=== PATIENT | male | born 1935 | race Caucasian/White ===

== ENCOUNTER 2018-08-11 06:39 | Day surgery (SDC) | payer MEDICARE ==
[~2018-08-11] VITALS: Ht 172.7 cm; Wt 81.2 kg
[~2018-08-11 06:39] MED LIST: ACET650T15 PO; ATOR1TAB21 PO; COUM2.5T17 PO; LISI20TA3 PO; MULT1TAB8 PO; NAPR220C PO; NS 1,000 ML IV ONE; PERC5TAB12 PO; TYLE325T5 PO; VITA10006 PO; VITA100067 PO; VITA400D PO; VITA500C24 PO; VITAD1000T PO
[2018-08-11] MEDS ORDERED: PROPOFOL 200 MG/20 ML VIAL As Ordered ONE ×2 (07:04→08:06)
--- NOTE | 2018-08-11 08:29 | ROOR ---
Patient Name: Zia Mireles Procedure Date: 08/11/2018 7:29 AM Date of : 1935 Age: 83 Room: [facility] Gender: Male Note Status: Finalized Procedure: Colonoscopy Indications: High risk colon cancer surveillance: Personal history of colonic polyps, Family history of colon cancer in a first-degree relative, Last colonoscopy: October 2014 Providers: Best Kern MD Referring MD: Amanda Valdes DO Requesting Provider: Medicines: Monitored Anesthesia Care Complications: No immediate complications. Procedure: Pre-Anesthesia Assessment: - Prior to the procedure, a History and Physical was performed, and patient medications and allergies were reviewed. The patient is competent. The risks and benefits of the procedure and the sedation options and risks were discussed with the patient. All questions were answered and informed consent was obtained. Patient identification and proposed procedure were verified by the physician, the nurse and the anesthesiologist. Mental Status Examination: alert and oriented. CV Examination: regular rate and rhythm. Prophylactic Antibiotics: The patient does not require prophylactic antibiotics. Prior Anticoagulants: The patient has taken no previous anticoagulant or antiplatelet agents. ASA Grade Assessment: II - A patient with mild systemic disease. After reviewing the risks and benefits, the patient was deemed in satisfactory condition to undergo the procedure. The anesthesia plan was to use monitored anesthesia care (MAC). Immediately prior to administration of medications, the patient was re-assessed for adequacy to receive sedatives. The heart rate, respiratory rate, oxygen saturations, blood pressure, adequacy of pulmonary ventilation, and response to care were monitored throughout the procedure. The physical status of the patient was re-assessed after the procedure. The Colonoscope [id number] #[id number] was introduced through the anus and advanced to the cecum, identified by appendiceal orifice and ileocecal valve. The colonoscopy was performed without difficulty. The patient tolerated the procedure well. The quality of the bowel preparation was excellent. Findings: The perianal and digital rectal examinations were normal. A 3 mm polyp was found in the proximal ascending colon. The polyp was sessile. The polyp was removed with a jumbo cold forceps. Resection and retrieval were complete. Estimated blood loss was minimal. A 5 mm polyp was found in the transverse colon. The polyp was semi-pedunculated. The polyp was removed with a cold snare. Resection and retrieval were complete. Estimated blood loss was minimal. A 3 mm polyp was found in the sigmoid colon. The polyp was sessile. The polyp was removed with a jumbo cold forceps. Resection and retrieval were complete. Estimated blood loss was minimal. Many medium-mouthed diverticula were found in the entire colon. Impression: - One 3 mm polyp in the proximal ascending colon, removed with a jumbo cold forceps. Resected and retrieved. - One 5 mm polyp in the transverse colon, removed with a cold snare. Resected and retrieved. - One 3 mm polyp in the sigmoid colon, removed with a jumbo cold forceps. Resected and retrieved. - Diverticulosis in the entire examined colon. Recommendation: - Discharge patient to home. - Resume previous diet. - Continue present medications. - Await pathology results. - Return to nurse practitioner as previously scheduled. Best Kern MD Best Kern MD 08/11/2018 8:28:37 AM Electronically signed by Best Kern MD Number of Addenda: 0 Note Initiated On: 08/11/2018 7:29 AM Estimated Blood Loss: Estimated blood loss was minimal.
[2018-08-11 08:32] VITALS: BP 134/84
== END 2018-08-11 08:41 | disposition home or self-care (01) ==
LOC: M OPP 06:39
PROVIDERS: ATTEND Surgery
DX: Z12.11 Encounter for screening for malignant neoplasm of colon (principal); Z86.010 Personal history of colon polyps; Z80.0 Family history of malignant neoplasm of digestive organs; D12.2 Benign neoplasm of ascending colon; D12.3 Benign neoplasm of transverse colon; D12.5 Benign neoplasm of sigmoid colon; K57.30 Diverticulosis of large intestine without perforation or abscess without bleeding

== ENCOUNTER → 2019-12-15 | Outpatient (CLI) | payer MEDICARE ==
[~2019-12-15] MED LIST changes: +CHOL100029 PO; +GASTROGRAFIN SOLUTION 30ML (Q9963) As Ordered ONE; +ISOVUE-370 76% 100ML VIAL As Ordered ONE; +LISI20TA20 PO; -LISI20TA3 PO; -NS 1,000 ML IV ONE; -VITAD1000T PO
[2019-12-15 16:50] LABS: BLOOD UREA NITROGEN 23 MG/DL (7-18); CREATININE FOR GFR 1.03 MG/DL (0.70-1.30); GLOMERULAR FILTRATION RATE > 60.0 (>35)
--- NOTE | 2019-12-15 18:41 | REP ---
INDICATION: ABD BLOATING/PAIN, LAB 1ST THEN FILE RM FOR CT. COMPARISON: None TECHNIQUE: 100 cc Isovue 370. FINDINGS: Basilar fibrotic and or subsegmental atelectatic changes are seen in the lung bases. There is a small left pleural effusion. There is no evidence of a pericardial effusion. Two focal low densities are seen in the liver. These are likely cysts. The spleen and pancreas are within normal limits. The adrenal glands are within normal limits. There are multiple bilateral renal cysts of various sizes. The largest on the right measures 8.9 cm and the largest on the left measures 5.6 cm. The abdominal aorta and para-aortic regions are within normal limits. There is moderate ascites. There is nodular enhancement of the omentum and mesentery. There is omental caking in the lesser sac particularly the gastrohepatic ligament. There is no evidence of intestinal obstruction. Bone window technique throughout the exam shows spinal degenerative changes with left hip and bilateral sacroiliac joint degenerative changes. There is a right hip prosthesis. IMPRESSION: 1. 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 2. Bilateral renal cysts as described above. 3. Other findings as described above. <Electronically signed by Ryan Todd > 12/15/19 [id number]
== END ==
LOC: M LAB 14:29 → M RAD 14:29
PROVIDERS: ATTEND Family Medicine
DX: R10.9 Unspecified abdominal pain (principal)
CPT/HCPCS: 36415; 74177; 82565; 84520; Q9963; Q9967

== ENCOUNTER → 2019-12-17 | Outpatient (CLI) | payer MEDICARE ==
[~2019-12-17] MED LIST changes: -GASTROGRAFIN SOLUTION 30ML (Q9963) As Ordered ONE; -ISOVUE-370 76% 100ML VIAL As Ordered ONE
[2019-12-17 11:28] LABS: BASO # 0.1 10^3/uL (0.0-0.2); BASO % 0.5 % (0.0-1.0); EOS % 0.1 % (0.0-3.0); HEMATOCRIT 46.3 % (42.0-52.0); HEMOGLOBIN 15.3 g/dl (13.5-17.5); LYMPH # 0.7 10^3/uL (1.5-5.0); MEAN CORPUSCULAR HEMOGLOBIN 30.4 pg (27.0-33.0); MEAN CORPUSCULAR VOLUME 91.9 fl (80.0-96.0); MONO # 1.1 10^3/uL (0.0-0.8); MONO % 7.9 % (0.0-5.0); NEUTROPHILS # 11.6 10^3/uL (1.5-8.5); NEUTROPHILS % 85.7 % (36.0-66.0); PLATELET COUNT, AUTOMATED 450 10^3/uL (150-450); RED BLOOD COUNT 5.04 10^6/uL (4.30-6.10); WHITE BLOOD COUNT 13.5 10^3/uL (4.0-10.0)
[2019-12-17 11:53] LABS: ALBUMIN 2.6 GM/DL (3.2-5.2); ALT/SGPT 16 U/L (12-78); BILIRUBIN,TOTAL 0.6 MG/DL (0.2-1.0); BLOOD UREA NITROGEN 22 MG/DL (7-18); CALCIUM LEVEL 9.4 MG/DL (8.8-10.2); CARBON DIOXIDE LEVEL 33 MEQ/L (21-32); CHLORIDE LEVEL 98 MEQ/L (98-107); CREATININE FOR GFR 1.12 MG/DL (0.70-1.30); GLOMERULAR FILTRATION RATE > 60.0 (>35); GLUCOSE, FASTING 120 MG/DL (70-100); POTASSIUM SERUM 3.5 MEQ/L (3.5-5.1); SODIUM LEVEL 139 MEQ/L (136-145); TOTAL PROTEIN 6.5 GM/DL (6.4-8.2)
== END ==
LOC: M LAB 10:41
PROVIDERS: ATTEND Family Medicine
DX: R14.0 Abdominal distension (gaseous) (principal); R18.8 Other ascites; K76.89 Other specified diseases of liver; C79.9 Secondary malignant neoplasm of unspecified site; D12.6 Benign neoplasm of colon, unspecified

== ENCOUNTER → 2019-12-23 | Outpatient (CLI) | payer MEDICARE ==
[~2019-12-23] MED LIST changes: +ASPI1TAB8 PO; +OMEP40CA97 PO
== END ==
LOC: M LABSMTC 10:37
PROVIDERS: ATTEND Anesthesiology
DX: Z01.812 Encounter for preprocedural laboratory examination (principal); Z20.828 Contact with and (suspected) exposure to other viral communicable diseases

== ENCOUNTER → 2019-12-27 | Outpatient (CLI) | payer MEDICARE ==
[~2019-12-27] MED LIST changes: +ASCO500T PO; +D31000TA2 PO; +OMEP-221 PO; +SODIUM BICARBONATE 8.4% INJ 50MEQ 50 ML VIAL As Ordered ONE; +VITMTA PO
[2019-12-27 10:38] LABS: INR 1.43; PROTHROMBIN TIME 17.8 SECONDS (12.5-14.3)
[2019-12-27 11:24] LABS: APPEARANCE, BODY FLUID HAZY (CLEAR); ASCITES FL COLOR YELLOW (COLORLESS); SOURCE, BODY FLUID ASCITES
[2019-12-27 11:25] VITALS: BP 126/74
[2019-12-27 11:57] LABS: SOURCE, BODY FLUID ALBUMIN ASCITES; SOURCE, BODY FLUID GLUCOSE ASCITES; SOURCE, BODY FLUID TOT PROTEIN ASCITES; TOTAL PROTEIN, BODY FLUID 4.3 G/DL (NOT ESTABLISHED)
--- NOTE | 2019-12-27 18:30 | REP ---
INDICATION: OTHER ASCITES PT HAVING LABS FIRST COMPARISON: None. TECHNIQUE: The procedure was performed by Cheri Moser [facility], under the direct supervision of Dr. Christianson The risks and benefits of the procedure were explained to the patient and an informed consent was obtained both verbally and written. Directly prior to the start of the procedure a formal time-out was completed in the procedure room. The largest pocket of fluid was localized in the left flank using ultrasound guidance. The skin was prepped and draped in a sterile fashion. Eleven ML of buffered lidocaine was used as a local anesthetic. An 8-Burmese multi side-hole catheter was inserted using trocar technique. FINDINGS: 5300 mL of dark yellow ascites fluid was withdrawn, 500 mL was sent to the lab for further analysis, of the rest was discarded. The patient tolerated the procedure well and there were no immediate complications. After the appropriate amount of monitored convalescence, the patient was discharged from the department. IMPRESSION: Ultrasound-guided paracentesis with removal of 5300 mL of ascites. <Electronically signed by Cheri Moser > 12/27/19 [id number] <Electronically signed by Porter Christianson > 12/27/19 [id number]
== END ==
LOC: M IRPRO 09:44
PROVIDERS: ATTEND Surgery
DX: R18.8 Other ascites (principal); R85.69 Abnormal cytological findings in specimens from other digestive organs and abdominal cavity; Z79.01 Long term (current) use of anticoagulants

== ENCOUNTER 2019-12-28 12:48 | Day surgery (SDC) | payer MEDICARE ==
[~2019-12-28] VITALS: Ht 175.3 cm; Wt 83.9 kg
[~2019-12-28 12:48] MED LIST changes: -ASCO500T PO; -D31000TA2 PO; +NS 1,000 ML IV ONE; -OMEP-221 PO; -OMEP40CA97 PO; -SODIUM BICARBONATE 8.4% INJ 50MEQ 50 ML VIAL As Ordered ONE; -VITMTA PO
[2019-12-28] MEDS ORDERED: LIDOCAINE 2% 100MG/5ML SDV (FOR ANES.) As Ordered ONE (14:29)
[2019-12-28] MEDS ORDERED: propofoL 200 MG/20 ML VIAL As Ordered ONE (14:29)
[2019-12-28] MEDS ORDERED: OMEP40CA97 PO (16:04)
[2019-12-28] MEDS ORDERED: LEVALBUTEROL 1.25 MG/0.5 ML CONCENTRATE NEB INH ONE (16:30)
--- NOTE | 2019-12-28 17:21 | ROOR ---
Patient Name: Zia Mireles Procedure Date: 12/28/2019 3:27 PM Date of : 1935 Age: 84 Room: [facility] Gender: Male Note Status: Finalized Procedure: Upper GI endoscopy Indications: Abnormal CT of the GI tract, Patient has new ascites and CT shows nodular appearance of mesentery and omentum suggesting malignancy. Providers: Best Kern MD Referring MD: Amanda Valdes DO Requesting Provider: Medicines: Monitored Anesthesia Care Complications: No immediate complications. Procedure: Pre-Anesthesia Assessment: - Prior to the procedure, a History and Physical was performed, and patient medications and allergies were reviewed. The patient is competent. The risks and benefits of the procedure and the sedation options and risks were discussed with the patient. All questions were answered and informed consent was obtained. Patient identification and proposed procedure were verified by the physician, the nurse and the 911 emergency services dispatcher in the procedure room. Mental Status Examination: alert and oriented. CV Examination: regular rate and rhythm. Prophylactic Antibiotics: The patient does not require prophylactic antibiotics. Prior Anticoagulants: The patient has taken no previous anticoagulant or antiplatelet agents. ASA Grade Assessment: III - A patient with severe systemic disease. After reviewing the risks and benefits, the patient was deemed in satisfactory condition to undergo the procedure. The anesthesia plan was to use monitored anesthesia care (MAC). Immediately prior to administration of medications, the patient was re-assessed for adequacy to receive sedatives. The heart rate, respiratory rate, oxygen saturations, blood pressure, adequacy of pulmonary ventilation, and response to care were monitored throughout the procedure. The physical status of the patient was re-assessed after the procedure. The Endoscope was introduced through the mouth, and advanced to the second part of duodenum. The upper GI endoscopy was accomplished without difficulty. The patient tolerated the procedure well. Findings: One benign-appearing, intrinsic mild stenosis was found at the gastroesophageal junction. The stenosis was traversed. Multiple dispersed, small non-bleeding erosions were found in the gastric antrum and in the prepyloric region of the stomach. There were no stigmata of recent bleeding. One non-obstructing non-bleeding cratered duodenal ulcer with pigmented material was found in the first portion of the duodenum. The lesion was 20 mm in largest dimension. There is no evidence of perforation. Biopsies were taken with a cold forceps for histology. The second portion of the duodenum was normal. Impression: - Benign-appearing esophageal stenosis. - Non-bleeding erosive gastropathy. - Non-obstructing non-bleeding duodenal ulcer with pigmented material. There is no evidence of perforation. Biopsied. - Normal second portion of the duodenum. Recommendation: - Discharge patient to home. - Resume previous diet. - Continue present medications. - Use Prilosec (omeprazole) 40 mg PO BID. - Await pathology results. - Return to my office in 1 week. Procedure Code(s): --- Professional --- 86800, Esophagogastroduodenoscopy, flexible, transoral; with biopsy, single or multiple Diagnosis Code(s): --- Professional --- K22.2, Esophageal obstruction K31.89, Other diseases of stomach and duodenum K26.9, Duodenal ulcer, unspecified as acute or chronic, without hemorrhage or perforation R93.3, Abnormal findings on diagnostic imaging of other parts of digestive tract CPT copyright 2019 [employer]. All rights reserved. The codes documented in this report are preliminary and upon public health outreach worker review may be revised to meet current compliance requirements. Best Kern MD Best Kern MD 12/28/2019 5:20:52 PM Electronically signed by Best Kern MD Number of Addenda: 0 Note Initiated On: 12/28/2019 3:27 PM Estimated Blood Loss: Estimated blood loss was minimal.
[2019-12-28 17:45] VITALS: BP 100/61
== END 2019-12-28 20:05 | disposition home or self-care (01) ==
LOC: M OPP 12:48
PROVIDERS: ATTEND Surgery
DX: K22.2 Esophageal obstruction (principal); K31.89 Other diseases of stomach and duodenum; K25.9 Gastric ulcer, unspecified as acute or chronic, without hemorrhage or perforation; I10 Essential (primary) hypertension; R18.8 Other ascites; R93.3 Abnormal findings on diagnostic imaging of other parts of digestive tract; Z87.891 Personal history of nicotine dependence

== ENCOUNTER 2019-12-30 14:15 | Inpatient (IN) | payer MEDICARE ==
[~2019-12-30] VITALS: Ht 175.3 cm; Wt 88.2 kg
[~2019-12-30 14:15] MED LIST changes: -NS 1,000 ML IV ONE; +OMEP40CA97 PO
[2019-12-30 15:32] LABS: BASO % 0.2 % (0.0-1.0); EOS % 0.2 % (0.0-3.0); HEMATOCRIT 37.6 % (42.0-52.0); HEMOGLOBIN 12.4 g/dl (13.5-17.5); LYMPH # 0.6 10^3/uL (1.5-5.0); LYMPH % 5.7 % (24.0-44.0); MEAN CORPUSCULAR HEMOGLOBIN 29.5 pg (27.0-33.0); MEAN CORPUSCULAR VOLUME 89.5 fl (80.0-96.0); MONO # 0.8 10^3/uL (0.0-0.8); MONO % 8.3 % (0.0-5.0); NEUTROPHILS # 8.6 10^3/uL (1.5-8.5); NEUTROPHILS % 84.9 % (36.0-66.0); PLATELET COUNT, AUTOMATED 540 10^3/uL (150-450); WHITE BLOOD COUNT 10.1 10^3/uL (4.0-10.0)
[2019-12-30 15:43] LABS: INR 1.42; PROTHROMBIN TIME 17.7 SECONDS (12.5-14.3)
[2019-12-30 15:44] LABS: PARTIAL THROMBOPLASTIN TIME 33.5 SECONDS (24.2-38.5)
[2019-12-30 15:55] LABS: ALBUMIN 1.8 GM/DL (3.2-5.2); ALT/SGPT 15 U/L (12-78); BILIRUBIN,DIRECT 0.1 MG/DL (0.0-0.2); BILIRUBIN,TOTAL 0.3 MG/DL (0.2-1.0); BLOOD UREA NITROGEN 34 MG/DL (7-18); CARBON DIOXIDE LEVEL 28 MEQ/L (21-32); CHLORIDE LEVEL 104 MEQ/L (98-107); CREATININE FOR GFR 1.21 MG/DL (0.70-1.30); GLOMERULAR FILTRATION RATE > 60.0 (>35); GLUCOSE, FASTING 104 MG/DL (70-100); LIPASE 121 U/L (73-393); POTASSIUM SERUM 4.1 MEQ/L (3.5-5.1); SODIUM LEVEL 139 MEQ/L (136-145); TOTAL PROTEIN 5.6 GM/DL (6.4-8.2)
--- NOTE | 2019-12-30 16:09 | REP ---
INDICATION: abd pain. COMPARISON: Two view chest of 04/02/2014 the latest prior FINDINGS: Multiple gas-filled dilated small bowel loops are seen in the abdomen. The upright view shows air-fluid levels within multiple small bowel loops. There is some gas in the rectosigmoid region. The accompanying frontal view the chest shows a new left pleural effusion and patchy left basilar opacity. There is no evidence of free subdiaphragmatic air. IMPRESSION: 1. Partial small bowel obstruction versus ileus correlate clinically. 2. Left pleural effusion and left basilar opacity. Concomitant pneumonia/atelectasis. <Electronically signed by Ryan Todd > 12/30/19 [id number]
[2019-12-30] MEDS ORDERED: ISOVUE-370 76% 100ML VIAL As Ordered ONE (16:18)
--- NOTE | 2019-12-30 17:02 | REP ---
INDICATION: gen abd pain. COMPARISON: 12/15/2019 TECHNIQUE: 100 cc Isovue 370. No oral bowel preparatory contrast was administered. FINDINGS: Please see CT angio chest report made same day in regards to findings involving the lung bases. There is a moderate amount of ascites. There is abnormal soft tissue density and enhancement involving the omentum consistent with omental caking. There are tiny nodular density seen along the peritoneum likely secondary to peritoneal seeding. The liver and gallbladder are within normal limits. Incidental note is made of a small hepatic cysts and a tiny hepatic calcification. The spleen is within normal limits. There are multiple bilateral renal cysts. The pancreas is unchanged. Small lymph nodes are seen in the para-aortic region. There is no evidence of free intraperitoneal air. Multiple gas and fluid-filled bowel loops are seen in the abdomen. There is gas and stool in the rectosigmoid region. There is no significant change in appearance of the osseous structures. IMPRESSION: 1. There is ascites which has decreased slightly in size compared to the prior exam. 2. 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 3. There is evidence of an ileus versus partial small bowel obstruction. This represents a change from the prior exam. 4. Bilateral renal cysts are again noted. 5. Other findings as described above. <Electronically signed by Ryan Todd > 12/30/19 [id number]
[2019-12-30] MEDS ORDERED: MORPHINE 4 MG/ML 1ML VIAL/SYRINGE (J2270) IV ONE (18:15)
--- NOTE | 2019-12-30 18:23 | REP ---
INDICATION: r/o pneumonia. COMPARISON: None. TECHNIQUE: CT angiogram chest performed following the intravenous administration of 100 cc of Isovue 370. Sagittal and coronal reconstruction images are performed. FINDINGS: Lungs: There is patchy atelectasis or infiltrate inferiorly in the left lung. Mediastinum: There is an enlarged left carinal lymph node measuring 1.2 cm in short axis dimension. There are few adjacent subcentimeter mediastinal lymph nodes. There are several subcentimeter lymph nodes in the cardiophrenic angles. There is a enlarged lymph node the right lateral cardiophrenic angle along the diaphragm which measures 2.0 x 1.1 cm. Few subcentimeter lymph nodes are seen anterior to the distal esophagus. Pulmonary arteries: In the posterior basilar pulmonary artery segment supplying the right lower lobe there are partially occlusive pulmonary emboli which are likely not acute. Joi: No adenopathy. Axilla: No adenopathy. Pleura: There is a large left pleural effusion. Heart: Not enlarged. Thoracic aorta: No aneurysm or dissection. Visualized osseous structures: There are degenerative changes of the spine without compression deformity. IMPRESSION: There is patchy atelectasis or infiltrate inferiorly in the left lung. There is a mildly enlarged left carinal lymph node. There are multiple subcentimeter lymph nodes in the cardiophrenic angles and anterior to the distal esophagus. There is an enlarged right lateral cardiophrenic lymph node. Partially occlusive pulmonary emboli in the secondary branch of the right pulmonary artery supplying the posterior basilar segment of the right lower lobe. I suspect these are most likely chronic. Large left pleural effusion. <Electronically signed by Porter Christianson > 12/30/19 2018
[2019-12-30] MEDS ORDERED: cefTRIAXone SOD 1 GM in D5W MINI-BAG PLUS 50 ML IV ONE (18:45)
[2019-12-30] MEDS ORDERED: LISI20TA20 PO (18:47)
[2019-12-30] MEDS ORDERED: D31000TA2 PO (18:47)
[2019-12-30] MEDS ORDERED: VITMTA PO (18:47)
[2019-12-30] MEDS ORDERED: ASCO500T PO (18:47)
[2019-12-30] MEDS ORDERED: ASPI1TAB8 PO (18:47)
[2019-12-30] MEDS ORDERED: OMEP-221 PO (18:47)
[2019-12-30] MEDS ORDERED: ACET650T15 PO (18:47)
[2019-12-30 19:05] LABS: CK-MB VALUE MASS 1.8 NG/ML (<3.6); CPK CREATINE PHOSPHOKINASE 42 U/L (39-308); MB/CK RELATIVE INDEX 4.29 (< OR =4); TROPONIN I 0.03 NG/ML (< 0.10)
[2019-12-30] MEDS ORDERED: ACETAMINOPHEN 650MG ER TAB (TYLENOL ARTHRITIS) PO PRN (20:45)
--- NOTE | 2019-12-30 20:52 | HPEPDOC ---
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 Patient shares that he was experiencing abdominal pain and distention earlier this month. A CT of the abdomen was performed by his primary care provider which indicated ascites and the stigmata of metastatic disease. He was subsequently referred to general surgery for further evaluation of the ascites. Paracentesis on 12/27/[address] Kern with the removal of 5300 mL of ascites. Ascitic fluid contained 1051 WBCs with high percentage of mononuclear and polymorphonuclear cells. Cytology report indicating atypical cells favoring malignancy. Patient reported noting significant improvement in his abdominal discomfort following the procedure. He also recently underwent upper endoscopy on 12/28/19, also performed by Dr. Kern. Findings indicate benign-appearing is soft stenosis, nonbleeding erosive gastropathy, nonobstructing nonbleeding duodenal ulcer with pigmented material without evidence of perforation. Pathology on the pigmented material shows duodenal mucosa is extensive ulceration and reparative changes, negative for malignancy. A shunt was well in the perioperative period and routinely discharged home. Patient presented to the emergency department the evening of 12/30/19. EMS. Patient reported increasing abdominal discomfort and distention that was becoming intolerable. He reports this pain is similar to what he experienced prior to his paracentesis. He also reported some increasing shortness of breath, particularly while lying down. Denied any chest pain or tightness. In the emergency department, patient was found to be afebrile, tachycardic, normotensive maintaining saturation 95% on room air. Laboratory evaluation showed a WBC of 10.1, H/H of 12.4/37.6. Mild thrombocytosis of 540. Electrolytes within normal limits, BUN/Cr of 34/1.21. Hypoalbuminemia of 1.8. Troponin of 0.03 without any signs of ischemia on EKG. Given patient's abdominal pain and distention, plain film was ordered showing signs of possible small bowel obstruction. Abdomen/pelvis CT confirmed the finding. 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 Emergency department contacted on-call surgeon who happened to be Dr. Kern. He recommended not placing an NG tube, keeping the patient nothing by mouth with IVF hydration and monitoring. Given the above findings, in the setting of newly diagnosed metastatic disease, the hospice team was contacted to admit the patient for further evaluation and management. PAST MEDICAL HISTORY: Hypertension Right hip osteoarthritis Metastatic carcinoma, unknown primary Esophageal stricture PAST SURGICAL HISTORY: Polypectomy, 2008, 2011, 2014 Bilateral cataracts, 2014 Right total hip replacement, 2015 Bilateral carpal tunnel release, 2014 SOCIAL HISTORY: Marital status: Resides in: Lives in [place] with his . Employment: Retired [employer] Tobacco use: Current nonsmoker, patient reports intermittently smoking pipes and cigars but has not done so for 30 years. ETOH: Denies any current alcohol use Illicit drug use: Denies any current illicit or IV drug use FAMILY HISTORY: Father: Lung cancer Mother: Colon cancer Denies any family history of breast or prostate cancer ALLERGIES: Please see below. REVIEW OF SYSTEMS: CONSTITUTIONAL: Denies any fevers, chills. Denies night sweats and fatigue. Reports decreased appetite. HEENT: Denies any headache, changes in vision, changes in hearing, tinnitus, rhinorrhea or nasal congestion, sore throat or difficulty swallowing CARDIOVASCULAR: Denies any chest pain, pressure, palpitations RESPIRATORY: Reports intermittent dry cough GASTROINTESTINAL: Reports generalized periumbilical abdominal fullness and discomfort, resolved status post morphine. Reports a one-month history of loose stools without any mane blood or melena. GENITOURINARY: Has any difficulty urinating SKIN: No new rashes or lesions, denies any recent bruising MUSCULOSKELETAL: Has any muscle aches or pains NEUROLOGICAL: Denies any focal neurologic deficits, weakness, changes in sensorium HOME MEDICATIONS: Please see below. PHYSICAL EXAMINATION: VITAL SIGNS: See below GENERAL APPEARANCE: Patient is interviewed and examined in the emergency department. Patient was found to be resting comfortably on his left side on the hospital stretcher. He was easily arousable, awake, alert, no acute distress. He is able to answer questions regarding his medical history without trouble. Patient appears his stated age, good hygiene. HEENT: Normocephalic, atraumatic, symmetric, EOMI, PERRLA, mucous membranes moist, fair oral hygiene CARDIOVASCULAR: Regular rate and rhythm without appreciable murmur LUNGS: Lung sounds diminished in the bases bilaterally, more so on the left than the right. Left-sided basilar crackles. Otherwise good air movement with symmetric chest rise. No appreciable wheezing or rhonchi ABDOMEN: Distended, round, mild tenderness in the lower quadrants bilaterally, bowel sounds appreciated. No overlying skin changes MUSCULOSKELETAL: Patient is able to move all extremities equally bilaterally. EXTREMITIES: Trace edema in the lower extremity is bilaterally. No calf tenderness, no unilateral findings including erythema, swelling, temperature changes. NEUROLOGICAL: Strength 5 out of 5 in upper and lower extremities. No facial droop, aphasia or dysarthria. Sensorium intact PSYCHIATRIC: Mood and affect are appropriate given patient's current medical conditions. LABORATORY DATA: See below. IMAGING: Paracentesis U/S (12/27/19): Ultrasound-guided paracentesis with removal of 5300 mL of ascites. Chest CT Angio (12/30/19): There is patchy atelectasis or infiltrate inferiorly in the left lung. There is a mildly enlarged left carinal lymph node. There are multiple subcentimeter lymph nodes in the cardiophrenic angles and anterior to the distal esophagus. There is an enlarged right lateral cardiophrenic lymph node. Partially occlusive pulmonary emboli and a secondary branch of the right pulmonary artery supplying the posterior basal segment of the right lower lobe. I suspect these are most likely chronic. Large left pleural effusion. Abdomen/Pelvis CT (12/30/19): There is ascites which has decreased slightly in size compared to prior exam. 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 There is evidence of an ileus versus partial small bowel obstruction. This represented change from the prior exam. Bilateral renal cysts are again noted. Abdomen XR (12/30/19): Partial small bowel obstruction versus ileus correlate clinically. Left pleural effusion and left basilar opacity. Concomitant pneumonia/atelectasis. ASSESSMENT: Patient is an 84-year-old male, past medical history significant for recently diagnosed metastatic disease of unknown primary source, presented to the emergency department the evening of 12/30/23 increasing abdominal pain and discomfort. Earlier in the week, patient underwent paracentesis with removal of over 500 mL of fluid. Imaging in the emergency department demonstrated a possible small bowel obstruction. Surgery was contacted who recommended refraining from NG tube placement, keeping the patient nothing by mouth with adequate IVF. Chronic right basilar PE and left-sided pleural effusion also noted on CT angiography of the patient's chest. Effusion, ascites and PE are most likely related to patient's underlying malignancy. Given these findings, in the setting of metastatic disease, patient was admitted to the hospitalist service for further evaluation and management. PLAN: #Chronic PE, right posterior basilar segment, partially occlusive, -Denies any history of hemoptysis, dark tarry stools or hematochezia. -Start patient on Eliquis 10 mg BID for 7 days, 5 mg BID for maintenance thereafter. -Monitor for bleeding and bruising. #Abdominal pain, 2/2 partial SBO, metastatic disease -Dr. Kern, who is familiar with the patient, consulted by ED physician. -NPO, IVF, KUB in am, NO NG tube per surgery. -Morphine 2 mg for pain/discomfort. -Consider serial plain films for monitoring -Day team to consult surgery in am if not resolving. #Large left Pleural Effusion -Multiple enlarged lymph nodes, likely malignant. -Remote pulse ox, O2 to maintain saturation above 92% #Omental/Peritoneal Mets, unknown primary -Paracentesis on 12/27/19, s/p removal of -Atypical cells, WBC of 100,00, likely malignant cytology -CT today ascites slightly improved. #Tachycardia -Trop negative, EKG RBBB, 104 on assessment. -Suspect dehydration/poor oral intake. IVF as above. -Telemetry monitoring #Hypertension -Continue home lisinopril/hctz -Normotensive #Esophageal stricture -S/P endoscopic evaluation on 12/[address] Kern. -Continue home PPI #Deconditioning Consider discussion regarding palliative care DVT PROPHYLAXIS: Patient will be receiving Eliquis for his chronic PE CODE STATUS: Patient confirms DNR/trial of intubation DISPOSITION: Anticipate >2 night stays Vital Signs Vital Signs Date Time Temp Pulse Resp B/P (MAP) Pulse Ox O2 Delivery O2 Flow Rate FiO2 12/30/19 19:17 104 16 90 Room Air 12/30/19 19:15 119/59 (79) 12/30/19 14:20 99.0 Laboratory Data Labs 24H Laboratory Tests 2 12/30/19 15:16: Immature Granulocyte % (Auto) 0.7, Neutrophils (%) (Auto) 84.9H, Lymphocytes (%) (Auto) 5.7L, Monocytes (%) (Auto) 8.3H, Eosinophils (%) (Auto) 0.2, Basophils (%) (Auto) 0.2, Neutrophils # (Auto) 8.6H, Lymphocytes # (Auto) 0.6L, Monocytes # (Auto) 0.8, Eosinophils # (Auto) 0.0, Basophils # (Auto) 0.0, Nucleated Red Blood Cells % (auto) 0.0, Prothrombin Time 17.7H, Prothromb Time International Ratio 1.42, Activated Partial Thromboplast Time 33.5, Anion Gap 7L, Glomerular Filtration Rate > 60.0, Calcium Level 8.0L, Total Bilirubin 0.3, Direct Bilirubin 0.1, Aspartate Amino Transf (AST/SGOT) 32, Alanine Aminotransferase (ALT/SGPT) 15, Alkaline Phosphatase 64, Total Creatine Kinase 42, Creatine Kinas e MB 1.8, Creatine Kinase MB Relative Index 4.29H, Troponin I 0.03, Total Protein 5.6L, Albumin 1.8L, Albumin/Globulin Ratio 0.5, Lipase 121 12/30/19 18:41: Coronavirus (COVID-19)(PCR) NEGATIVE CBC/BMP Laboratory Tests 12/30/19 15:16 Home Medications Scheduled Apixaban (Eliquis) 5 Mg Tablet, 1 TAB PO BID Ascorbic Acid (Ascorbic Acid) 500 Mg Tablet, 1,000 MG PO DAILY Cholecalciferol (Vitamin D3) (Vitamin D3) 1,000 Unit Tablet, 1,000 UNITS PO DAILY Multivitamins (Thera M Plus Tablet) 1 Each Tablet, 1 TAB PO DAILY Omeprazole (Omeprazole) 40 Mg Capsule.dr, 40 MG PO BID Scheduled PRN Acetaminophen (Acetaminophen ER) 650 Mg Tablet.er, 650 MG PO Q8H PRN for PAIN Allergies Coded Allergies: No Known Allergies (Unverified , 12/23/19) A-FIB/CHADSVASC A-FIB History Current/History of A-Fib/PAF?: No GME ATTESTATION GME ATTESTATION My faculty preceptor for this patient encounter was physically present during the encounter and was fully available. All aspects of the patient interview, examination, medical decision making process, and medical care plan development were reviewed and approved by the faculty preceptor. The faculty preceptor is aware and concurs with the plan as stated in the body of this note and will attest to such by his/her cosignature. ATTENDING NOTE TIME OF SERVICE 915PM Mr. Mireles is an 84 yr old w a hx of HTN, and newly diagnosed metastatic abd CA w ascites who presented w abdominal pain and will be admitted for management of possible SBO vs ileus. Plan: will ask the day time team to consider consider IR consult for therapeutic paracentesis and pigtail and to f/u with on possible SBO rest per 's H&P MIREILLE RICHARDS DO Dec 30, 2019 20:52 JUAN ROSALES MD Dec 31, 2019 06:23
[2019-12-30] MEDS ORDERED: APIXABAN 5 MG TAB (ELIQUIS) PO SCH (21:00)
[2019-12-30] MEDS: RAMELTEON 8 MG TAB (ROZEREM) PO SCH (21:00)
[2019-12-30] MEDS ORDERED: ACETAMINOPHEN TAB 650MG DOSE (2X325MG) PO PRN (21:30)
[2019-12-30 22:41] VITALS: BP 130/80
[2019-12-30] MEDS: D5W/0.9% SODIUM CHLORIDE 1,000 ML IV SCH (23:04)
[2019-12-30] MEDS: OMEPRAZOLE 20 MG CAP PO SCH (23:28)
[2019-12-31 04:00] VITALS: BP 106/56
[2019-12-31] MEDS: MORPHINE 2 MG/ML 1ML VIAL (J2270) IV PRN (04:34)
[2019-12-31 05:53] LABS: ALBUMIN 1.5 GM/DL (3.2-5.2); BILIRUBIN,TOTAL 0.2 MG/DL (0.2-1.0); CALCIUM LEVEL 7.6 MG/DL (8.8-10.2); CREATININE FOR GFR 1.29 MG/DL (0.70-1.30); GLOMERULAR FILTRATION RATE 56.8 (>35); MAGNESIUM LEVEL 1.3 MG/DL (1.8-2.4); POTASSIUM SERUM 3.9 MEQ/L (3.5-5.1); TOTAL PROTEIN 5.5 GM/DL (6.4-8.2)
[2019-12-31 08:00] VITALS: BP 125/67
[2019-12-31] MEDS: D5W/0.9% SODIUM CHLORIDE 1,000 ML IV SCH (08:23)
[2019-12-31] MEDS: MAG SULF 1GM/100ML (MAG RUN) 1 GM in IV 1 EA IV SCH ×2 (08:23→10:06)
[2019-12-31] MEDS: ASPIRIN 81 MG ENTERIC TAB PO SCH (08:26)
[2019-12-31] MEDS: OMEPRAZOLE 20 MG CAP PO SCH (08:27)
[2019-12-31] MEDS ORDERED: hydroCHLOROthiazide 25 MG TAB PO SCH (09:00)
[2019-12-31] MEDS ORDERED: MULTIVITAMINS/MINERALS THERAP 1 TAB PO SCH (09:00)
[2019-12-31] MEDS ORDERED: lisinopriL 20 MG TAB PO SCH (09:00)
[2019-12-31] MEDS ORDERED: VITAMIN D 1,000 INTERNATIONAL UNITS TABLET PO SCH (09:00)
[2019-12-31] MEDS ORDERED: ASCORBIC ACID 500 MG TAB PO SCH (09:00)
[2019-12-31 12:00] VITALS: BP 129/71
--- NOTE | 2019-12-31 13:26 | IPNPDOC ---
Text Note Date of Service The patient was seen on 12/31/19. NOTE SUBJECTIVE: Complains of abdominal distension causing some discomfort and di fficulty in breathing. Poor appetite. No bowel movement. Reports Passing flatus. VITAL SIGNS: See below GENERAL APPEARANCE: Laying flat in bed awake, alert, no acute distress. HEENT: Normocephalic, atraumatic, symmetric, EOMI, PERRLA, mucous membranes moist. CARDIOVASCULAR: Regular rate and rhythm without appreciable murmur/ rub or gallop LUNGS: Lung sounds diminished in the bases bilaterally, more so on the left than the right. Left-sided basilar crackles. Otherwise good air movement with sy mmetric chest rise. No appreciable wheezing or rhonchi ABDOMEN: Distended, round, mild tenderness in the lower quadrants bilaterally, bowel sounds appreciated. No overlying skin changes MUSCULOSKELETAL: Patient is able to move all extremities equally bilaterally EXTREMITIES: No edema No calf tenderness NEUROLOGICAL: Strength 5 out of 5 in upper and lower extremities. No facial droop, aphasia or dysarthria. Sensorium intact PSYCHIATRIC: Mood and affect are appropriate given patient's current medical conditions. LABORATORY DATA and Radiology : Reviewed. IMAGING: Paracentesis U/S (12/27/19): Ultrasound-guided paracentesis with removal of 5300 mL of ascites. Chest CT Angio (12/30/19): There is patchy atelectasis or infiltrate inferiorly in the left lung. There is a mildly enlarged left carinal lymph node. There are multiple subcentimeter lymph nodes in the cardiophrenic angles and anterior to the distal esophagus. There is an enlarged right lateral cardiophrenic lymph node. Partially occlusive pulmonary emboli and a secondary branch of the right pulmonary artery supplying the posterior basal segment of the right lower lobe. I suspect these are most likely chronic. Large left pleural effusion. Abdomen/Pelvis CT (12/30/19): There is ascites which has decreased slightly in size compared to prior exam. 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 There is evidence of an ileus versus partial small bowel obstruction. This represented change from the prior exam. Bilateral renal cysts are again noted. Abdomen XR (12/30/19): Partial small bowel obstruction versus ileus correlate clinically. Left pleural effusion and left basilar opacity. Concomitant pneumonia/atelectasis. ASSESSMENT and Plan: Patient is an 84-year-old male, past medical history significant for recently diagnosed metastatic disease of unknown primary source with omental caking and mesenteric deposits with Ascites. He presented to the emergency department the evening of 12/30/23 increasing abdominal pain and discomfort. Earlier in the week, patient underwent paracentesis with removal of over 5000 mL of fluid. He had an EGD also earlier this which showed benign esophageal stricture, Had Colonoscopy in 2019 had multiple tubular adenomas. Imaging in the emergency department demonstrated a possible small bowel obstruction vs Ileus. Surgery was contacted who recommended refraining from NG tube placement, keeping the patient nothing by mouth with adequate IVF. CT angio of chest showed chronic right basilar Pulmonary Embolism and left-sided pleural effusion moderate. Effusion, ascites and PE are most likely related to patient's underlying malignancy. Given these findings, in the setting of metastatic disease, patient was admitted to the hospitalist service for further evaluation and management. Partial SBO Vs ileus NPO, IVF, Dr Kern consulted Chronic Pulmonary Embolism, right posterior basilar segment, partially occlusive, will need Eliquis but will hold off as may need procedures this admission will give Lovenox instead Metastatic cancer with Omental/Peritoneal Mets, unknown primary There were malignant cells in the ascites however immunohistochemistry could not make a definitive diagnosis from the cells due to the paucity of the cells Discussed with Dr Urena will order PSA and Ca 19-9 May need mesenteric lymph node / omental bx to get a tissue diagnosis. Hypertension Lisinopril reduced dose will top HCTZ. Esophageal stenosis S/P endoscopic evaluation on 12/[address] Kern. Biopsy did not show any malignancy Continue PPI Duodenal ulcer and erossive gastropathy seen in EGD on 12/28/19 Duodenal mucosa with extensive ulceration and reparative changes. Negative for malignancy. PPI DVT PROPHYLAXIS: Lovenox CODE STATUS: Patient confirms DNR/trial of intubation VS,Fishbone, I+O VS, Fishbone, I+O Laboratory Tests 12/30/19 15:16 12/31/19 04:59 Vital Signs Date Time Temp Pulse Resp B/P (MAP) Pulse Ox O2 Delivery O2 Flow Rate FiO2 12/31/19 12:00 98.0 100 18 129/71 (90) 99 Room Air 12/31/19 12:00 2.0 I&O- Last 24 Hours up to 6 AM 12/31/19 05:59 Intake Total 50 ml Output Total 350 ml Balance -300 ml MASON MCDONNELL MD Dec 31, 2019 13:26
[2019-12-31 14:28] LABS: CA19-9 TUMOR MARKER,CARBOHYDRA 2.9 U/ML (<35.0)
[2019-12-31 16:00] VITALS: BP 103/60
[2019-12-31] MEDS ORDERED: SLF 3 ML SYR IV PRN (16:00)
[2019-12-31 20:00] VITALS: BP 98/53
--- NOTE | 2019-12-31 21:31 | ECGEPIP ---
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
[2019-12-31] MEDS: RAMELTEON 8 MG TAB (ROZEREM) PO SCH (21:52)
[2019-12-31] MEDS: PANTOPRAZOLE 40MG VIAL (C9113 PER 1) IV SCH (21:52)
[2019-12-31] MEDS: ENOXAPARIN 80MG/0.8ML SYRINGE (J1650 PER 10MG) SC SCH (21:53)
[2019-12-31] MEDS: SLF 3 ML SYR IV SCH (21:53)
[2020-01-01 04:00] VITALS: BP 124/70
[2020-01-01] MEDS: MORPHINE 2 MG/ML 1ML VIAL (J2270) IV PRN ×3 (04:15→20:17)
[2020-01-01] MEDS: SLF 3 ML SYR IV SCH ×3 (04:15→20:17)
[2020-01-01 04:30] LABS: BASO # 0.1 10^3/uL (0.0-0.2); BASO % 0.5 % (0.0-1.0); EOS # 0.3 10^3/uL (0.0-0.5); EOS % 2.1 % (0.0-3.0); HEMATOCRIT 38.2 % (42.0-52.0); HEMOGLOBIN 12.1 g/dl (13.5-17.5); LYMPH # 1.3 10^3/uL (1.5-5.0); LYMPH % 10.9 % (24.0-44.0); MEAN CORPUSCULAR HEMOGLOBIN 29.4 pg (27.0-33.0); MEAN CORPUSCULAR HGB CONC 31.7 g/dl (32.0-36.5); MEAN CORPUSCULAR VOLUME 92.7 fl (80.0-96.0); MONO # 0.9 10^3/uL (0.0-0.8); MONO % 7.3 % (0.0-5.0); NEUTROPHILS # 9.3 10^3/uL (1.5-8.5); NEUTROPHILS % 77.9 % (36.0-66.0); PLATELET COUNT, AUTOMATED 526 10^3/uL (150-450); RED BLOOD COUNT 4.12 10^6/uL (4.30-6.10); WHITE BLOOD COUNT 11.9 10^3/uL (4.0-10.0)
[2020-01-01 04:57] LABS: ALBUMIN 1.8 GM/DL (3.2-5.2); BILIRUBIN,TOTAL 0.4 MG/DL (0.2-1.0); CALCIUM LEVEL 7.6 MG/DL (8.8-10.2); CREATININE FOR GFR 1.39 MG/DL (0.70-1.30); GLOMERULAR FILTRATION RATE 52.1 (>35); MAGNESIUM LEVEL 1.7 MG/DL (1.8-2.4); POTASSIUM SERUM 4.3 MEQ/L (3.5-5.1); TOTAL PROTEIN 5.8 GM/DL (6.4-8.2)
[2020-01-01] MEDS ORDERED: MAG SULF 1GM/100ML (MAG RUN) 1 GM in IV 1 EA IV ONE (05:30)
[2020-01-01 08:00] VITALS: BP 136/73
[2020-01-01] MEDS: PANTOPRAZOLE 40MG VIAL (C9113 PER 1) IV SCH ×2 (08:31→20:16)
[2020-01-01] MEDS: ENOXAPARIN 80MG/0.8ML SYRINGE (J1650 PER 10MG) SC SCH (08:32)
[2020-01-01] MEDS: ASPIRIN 81 MG ENTERIC TAB PO SCH (08:33)
[2020-01-01] MEDS: lisinopriL 10 MG TAB PO SCH (08:34)
--- NOTE | 2020-01-01 11:13 | IPNPDOC ---
Text Note Date of Service The patient was seen on 01/01/20. NOTE SUBJECTIVE: No complaints this morning. Some abdominal discomfort from the a bdominal swelling. VITAL SIGNS: See below GENERAL APPEARANCE: Laying flat in bed awake, alert, no acute distress. HEENT: Normocephalic, atraumatic, symmetric, EOMI, PERRLA, mucous membranes moist. CARDIOVASCULAR: Regular rate and rhythm without appreciable murmur/ rub or gallop LUNGS: Lung sounds diminished in the bases bilaterally, more so on the left than the right. Left-sided basilar crackles. Otherwise good air movement with symmetric chest rise. No appreciable wheezing or rhonchi ABDOMEN: Distended, round, mild tenderness in the lower quadrants bilaterally, bowel sounds appreciated. No overlying skin changes MUSCULOSKELETAL: Patient is able to move all extremities equally bilaterally EXTREMITIES: No edema No calf tenderness NEUROLOGICAL: Strength 5 out of 5 in upper and lower extremities. No facial droop, aphasia or dysarthria. Sensorium intact PSYCHIATRIC: Mood and affect are appropriate given patient's current medical conditions. LABORATORY DATA and Radiology : Reviewed. ASSESSMENT and Plan: Patient is an 84-year-old male, past medical history significant for recently di agnosed metastatic disease of unknown primary source with omental caking and mesenteric deposits with Ascites. He presented to the emergency department the evening of 12/30/23 increasing abdominal pain and discomfort. Earlier in the week, patient underwent paracentesis with removal of over 5000 mL of fluid. He had an EGD also earlier this which showed benign esophageal stricture, Had Colonoscopy in 2019 had multiple tubular adenomas. Imaging in the emergency department demonstrated a possible small bowel obstruction vs Ileus. Surgery was contacted who recommended refraining from NG tube placement, keeping the patient nothing by mouth with adequate IVF. CT angio of chest showed chronic right basilar Pulmonary Embolism and left-sided pleural effusion moderate. Effusion, ascites and PE are most likely related to patient's underlying malignancy. Given these findings, in the setting of metastatic disease, patient was admitted to the hospitalist service for further evaluation and management. Partial SBO Vs ileus clear liquids. Advance diet as per surgery. Chronic Pulmonary Embolism, right posterior basilar segment, partially occlusive, will need Eliquis but will hold off as may need procedures this admission will give Lovenox Metastatic cancer with Omental/Peritoneal Mets, unknown primary There were malignant cells in the ascites however immunohistochemistry could not make a definitive diagnosis from the cells due to the paucity of the cells Discussed with Dr Urena will order PSA and Ca 19-9 May need mesenteric lymph node / omental bx to get a tissue diagnosis. Discussed with Dr Kern , Possible laparoscopic biopsy on Friday. Hypertension Lisinopril reduced dose will stop HCTZ. Esophageal stenosis S/P endoscopic evaluation on 12/[address] Kern. Biopsy did not show any malignancy Continue PPI Duodenal ulcer and erossive gastropathy seen in EGD on 12/28/19 Duodenal mucosa with extensive ulceration and reparative changes. Negative for malignancy. PPI DVT PROPHYLAXIS: Lovenox CODE STATUS: Patient confirms DNR/trial of intubation VS,Fishbone, I+O VS, Fishbone, I+O Laboratory Tests 01/01/20 04:16 Vital Signs Date Time Temp Pulse Resp B/P (MAP) Pulse Ox O2 Delivery O2 Flow Rate FiO2 01/01/20 08:34 136/74 01/01/20 08:00 97.4 94 18 93 Room Air 01/01/20 04:25 2.0 I&O- Last 24 Hours up to 6 AM 01/01/20 06:00 Intake Total 2040 ml Output Total 0 ml Balance 2040 ml MASON MCDONNELL MD Jan 01, 2020 11:13
[2020-01-01 12:00] VITALS: BP 122/74
[2020-01-01 16:17] VITALS: BP 120/60
[2020-01-01 18:00] VITALS: BP 109/69
[2020-01-01] MEDS: RAMELTEON 8 MG TAB (ROZEREM) PO SCH (20:16)
[2020-01-01 22:00] VITALS: BP 103/63
[2020-01-02] VITALS (9 sets, daily range): BP systolic 100–124; BP diastolic 60–68
[2020-01-02] MEDS: SLF 3 ML SYR IV SCH ×3 (05:35→20:19)
[2020-01-02 06:51] LABS: BASO # 0.1 10^3/uL (0.0-0.2); BASO % 0.7 % (0.0-1.0); EOS # 0.2 10^3/uL (0.0-0.5); EOS % 1.7 % (0.0-3.0); HEMATOCRIT 33.7 % (42.0-52.0); HEMOGLOBIN 10.6 g/dl (13.5-17.5); LYMPH # 1.3 10^3/uL (1.5-5.0); LYMPH % 12.3 % (24.0-44.0); MEAN CORPUSCULAR HEMOGLOBIN 29.3 pg (27.0-33.0); MEAN CORPUSCULAR HGB CONC 31.5 g/dl (32.0-36.5); MEAN CORPUSCULAR VOLUME 93.1 fl (80.0-96.0); MONO # 0.8 10^3/uL (0.0-0.8); NEUTROPHILS # 7.9 10^3/uL (1.5-8.5); PLATELET COUNT, AUTOMATED 490 10^3/uL (150-450); RED BLOOD COUNT 3.62 10^6/uL (4.30-6.10); WHITE BLOOD COUNT 10.4 10^3/uL (4.0-10.0)
[2020-01-02 07:12] LABS: ALBUMIN 1.7 GM/DL (3.2-5.2); BILIRUBIN,TOTAL 0.3 MG/DL (0.2-1.0); CALCIUM LEVEL 7.5 MG/DL (8.8-10.2); CREATININE FOR GFR 1.44 MG/DL (0.70-1.30); MAGNESIUM LEVEL 1.6 MG/DL (1.8-2.4); POTASSIUM SERUM 4.3 MEQ/L (3.5-5.1); TOTAL PROTEIN 4.9 GM/DL (6.4-8.2)
[2020-01-02] MEDS: lisinopriL 10 MG TAB PO SCH (08:37)
[2020-01-02] MEDS: ASPIRIN 81 MG ENTERIC TAB PO SCH (08:37)
[2020-01-02] MEDS: PANTOPRAZOLE 40MG VIAL (C9113 PER 1) IV SCH (08:42)
--- NOTE | 2020-01-02 08:46 | IPNPDOC ---
Text Note Date of Service The patient was seen on 01/02/20. NOTE SUBJECTIVE: No complaints this morning. Had good night's sleep. Abdominal di scomfort has resolved. Planned for laparoscopic biopsy today. Had a diarrhea like bowel movement yesterday. VITAL SIGNS: See below GENERAL APPEARANCE: Laying flat in bed awake, alert, no acute distress. HEENT: Normocephalic, atraumatic, symmetric, EOMI, PERRLA, mucous membranes moist. CARDIOVASCULAR: Regular rate and rhythm without appreciable murmur/ rub or gallop LUNGS: Lung sounds diminished in the bases bilaterally, more so on the left than the right. Left-sided basilar crackles. Otherwise good air movement with symmetric chest rise. No appreciable wheezing or rhonchi ABDOMEN: Distended, round, mild tenderness in the lower quadrants bilaterally, good bowel sounds appreciated. No overlying skin changes MUSCULOSKELETAL: Patient is able to move all extremities equally bilaterally EXTREMITIES: No edema No calf tenderness NEUROLOGICAL: Strength 5 out of 5 in upper and lower extremities. No facial droop, aphasia or dysarthria. Sensorium intact PSYCHIATRIC: Mood and affect are appropriate given patient's current medical conditions. LABORATORY DATA and Radiology : Reviewed. ASSESSMENT and Plan: Patient is an 84-year-old male, past medical history significant for recently diagnosed metastatic disease of unknown primary source with omental caking and mesenteric deposits with Ascites. He presented to the emergency department the evening of 12/30/23 increasing abdominal pain and discomfort. Earlier in the week, patient underwent paracentesis with removal of over 5000 mL of fluid. He had an EGD also earlier this which showed benign esophageal stricture, Had Colonoscopy in 2019 had multiple tubular adenomas. Imaging in the emergency department demonstrated a possible small bowel obstruction vs Ileus. Surgery was contacted who recommended refraining from NG tube placement, keeping the patient nothing by mouth with adequate IVF. CT angio of chest showed chronic right basil ar Pulmonary Embolism and left-sided pleural effusion moderate. Effusion, ascites and PE are most likely related to patient's underlying malignancy. Given these findings, in the setting of metastatic disease, patient was admitted to the hospitalist service for further evaluation and management. Partial SBO Vs ileus seems to have resolved at this time Advance diet as per surgery. Going to OR today so is NPO now. Chronic Pulmonary Embolism, right posterior basilar segment, partially occlusive, will give Lovenox Metastatic cancer with Omental/Peritoneal Mets, unknown primary There were malignant cells in the ascites however immunohistochemistry could not make a definitive diagnosis from the cells due to the paucity of the cells Discussed with Dr Urena will order PSA and Ca 19-9 May need mesenteric lymph node / omental bx to get a tissue diagnosis. Laparoscopic Biopsy Hypertension Lisinopril reduced dose will stop HCTZ. Esophageal stenosis S/P endoscopic evaluation on 12/[address] Kern. Biopsy did not show any malignancy Continue PPI Duodenal ulcer and erossive gastropathy seen in EGD on 12/28/19 Duodenal mucosa with extensive ulceration and reparative changes. Negative for malignancy. PPI DVT PROPHYLAXIS: Lovenox CODE STATUS: Patient confirms DNR/trial of intubation VS,Fishbone, I+O VS, Fishbone, I+O Laboratory Tests 01/02/20 05:49 Vital Signs Date Time Temp Pulse Resp B/P (MAP) Pulse Ox O2 Delivery O2 Flow Rate FiO2 01/02/20 06:00 98.0 106 21 124/65 (84) 96 Room Air 01/01/20 14:26 2.0 I&O- Last 24 Hours up to 6 AM 01/02/20 06:00 Intake Total 1200 ml Output Total 0 ml Balance 1200 ml MASON MCDONNELL MD Jan 02, 2020 08:46
[2020-01-02] MEDS ORDERED: ceFAZolin SOD 2 GM in IV 1 EA IV ONE (10:15)
[2020-01-02] MEDS ORDERED: BUPIVACAINE HCL 0.25% 30ML VIAL As Ordered ONE (13:33)
[2020-01-02] MEDS ORDERED: fentaNYL 250 MCG/5 ML INJECTION (J3010) As Ordered ONE (14:05)
[2020-01-02] MEDS ORDERED: METOCLOPRAMIDE INJ 10MG/2ML VIAL (J2765 PER 1) As Ordered ONE (14:05)
[2020-01-02] MEDS ORDERED: LIDOCAINE 2% 100MG/5ML SDV (FOR ANES.) As Ordered ONE (14:05)
[2020-01-02] MEDS ORDERED: SUCCINYLCHOLINE 100 MG/5 ML SYRINGE (J0330) As Ordered ONE (14:05)
[2020-01-02] MEDS ORDERED: VASOPRESSIN INJ 20 UNITS/ML VIAL As Ordered ONE (14:05)
[2020-01-02] MEDS ORDERED: SUGAMMADEX SODIUM 500 MG/5 ML VIAL (BRIDION) As Ordered ONE (14:05)
[2020-01-02] MEDS ORDERED: MIDAZOLAM INJ 2MG/2ML VIAL (J2250 PER 1MG) As Ordered ONE (14:05)
[2020-01-02] MEDS ORDERED: dexameTHASONE 4 MG/ML 1ML VIAL (J1100 PER 1MG) As Ordered ONE (14:05)
[2020-01-02] MEDS ORDERED: propofoL 200 MG/20 ML VIAL As Ordered ONE (14:05)
[2020-01-02] MEDS ORDERED: ONDANSETRON 4MG/2ML VIAL As Ordered ONE (14:05)
[2020-01-02] MEDS ORDERED: ROCURONIUM BROMIDE 50 MG/5 ML VIAL As Ordered ONE (14:05)
[2020-01-02] MEDS ORDERED: ePHEDrine SULFATE 25 MG/5 ML(5MG/ML) SYRINGE As Ordered ONE (14:07)
[2020-01-02] MEDS ORDERED: PHENYLephrine HCL 500 MCG/5 ML (100MCG/ML) SYRINGE (J2370) As Ordered ONE ×2 (14:07→14:13)
[2020-01-02] MEDS ORDERED: ceFAZolin 2 GM/D5W 50 ML IV BAG (J0690 PER 500MG) IV ONE (14:18)
[2020-01-02] MEDS ORDERED: oxyCODONE 5MG TAB PO PRN (15:00)
[2020-01-02] MEDS ORDERED: ONDANSETRON 4MG/2ML VIAL IV PRN (15:00)
[2020-01-02] MEDS ORDERED: MORPHINE 2 MG/ML 1ML VIAL (J2270) IV PRN (15:00)
[2020-01-02] MEDS ORDERED: LR 1,000 ML IV SCH (15:00)
[2020-01-02] MEDS ORDERED: fentaNYL 100 MCG/2 ML INJECTION (J3010) IV PRN (15:00)
[2020-01-02] MEDS ORDERED: NORCO, ANEXSIA 5/325MG TABLET (HYDROcodone/ACETAMINOPHEN) PO PRN (15:15)
[2020-01-02] MEDS: RAMELTEON 8 MG TAB (ROZEREM) PO SCH (20:16)
[2020-01-02] MEDS: PANTOPRAZOLE 40MG TAB (PROTONIX) PO SCH (20:18)
[2020-01-03 02:00] VITALS: BP 100/60
[2020-01-03] MEDS: SLF 3 ML SYR IV SCH (05:47)
[2020-01-03 05:59] LABS: BASO % 0.3 % (0.0-1.0); EOS # 0.2 10^3/uL (0.0-0.5); EOS % 1.1 % (0.0-3.0); HEMOGLOBIN 11.3 g/dl (13.5-17.5); LYMPH % 7.8 % (24.0-44.0); MEAN CORPUSCULAR HEMOGLOBIN 30.1 pg (27.0-33.0); MEAN CORPUSCULAR HGB CONC 32.3 g/dl (32.0-36.5); MEAN CORPUSCULAR VOLUME 93.1 fl (80.0-96.0); MONO # 1.2 10^3/uL (0.0-0.8); MONO % 8.8 % (0.0-5.0); NEUTROPHILS # 10.8 10^3/uL (1.5-8.5); NEUTROPHILS % 80.9 % (36.0-66.0); PLATELET COUNT, AUTOMATED 452 10^3/uL (150-450); RED BLOOD COUNT 3.76 10^6/uL (4.30-6.10); WHITE BLOOD COUNT 13.3 10^3/uL (4.0-10.0)
[2020-01-03 06:00] VITALS: BP 106/64
[2020-01-03 06:21] LABS: CALCIUM LEVEL 7.4 MG/DL (8.8-10.2); CREATININE FOR GFR 1.61 MG/DL (0.70-1.30); POTASSIUM SERUM 4.2 MEQ/L (3.5-5.1)
[2020-01-03 10:00] VITALS: BP 106/64
[2020-01-03] MEDS ORDERED: ELIQ5TAB PO (10:15)
[2020-01-03] MEDS: PANTOPRAZOLE 40MG TAB (PROTONIX) PO SCH (10:27)
[2020-01-03] MEDS: ASPIRIN 81 MG ENTERIC TAB PO SCH (10:27)
[2020-01-03 10:29] VITALS: BP 111/68
[2020-01-03] MEDS: lisinopriL 10 MG TAB PO SCH (10:29)
--- NOTE | 2020-01-03 11:41 | CR ---
DATE OF CONSULTATION: 12/31/2019 REASON FOR CONSULTATION: Questionable ileus on CAT scan. 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 There is some slight elevation of white count in the fluid and the concern was that he might have spontaneous bacterial peritonitis. His decreased p.o. intake is his major issue and comes to the Emergency Room for additional treatment and evaluation. He has had some shortness of breath while lying down. He has noticed progressive distention and pulling across all of his lower abdomen. He has had no true nausea or vomiting, mostly just a fullness feeling is his major complaint. PAST MEDICAL HISTORY: Significant for hypertension, osteoarthritis, metastatic carcinoma and no primary esophageal stricture. PAST SURGICAL HISTORY: History of colonoscopies with polypectomies, history of right hip replacement, carpal tunnels. PHYSICAL EXAMINATION: GENERAL: An 84-year-old male who looks stated age. HEENT: Unremarkable. NECK: Supple without adenopathy. LUNGS: Diminished on the left hand side significantly. HEART: Regular. ABDOMEN: Distended with a fluid wave, nontender. No guarding. No rebound. No peritoneal signs are appreciated. IMPRESSION/PLAN: Patient is here for a questionable ileus, but he has had some flatus and decreased p.o. intake. I anticipate it is the ascites and carcinomatosis that is causing the decreased GI function more so, I do not seen any evidence of obstruction at this time and unfortunately at this point is a very poor outcome. The likelihood is that this is a terminal process with this individual and at this point supportive care is reasonable, however, also comfort care maybe recommended for this individual, however from a surgical standpoint, no surgical intervention is necessary or indicated and I would recommend starting him on a clear liquid diet, add some Ensure given his anasarca, ascites and decreased protein levels and advance his diet as tolerated starting tomorrow. Once again no surgical intervention at this time. I have discussed the concerns that this is a terminal process with the individual and that possibly oncology might make additional recommendations for possible treatment, however, I feel that this is very advanced disease at this time and with his weight loss and overall decline of function, I feel his functional status has substantially decreased as well. In any case, Dr. Kern is here during the weekend should any questions develop, but otherwise surgery will sign off. [facility]
--- NOTE | 2020-01-03 11:45 | CR ---
DATE OF CONSULTATION: 12/31/2019 REASON FOR CONSULTATION: Possible carcinomatosis. HISTORY OF PRESENT ILLNESS: The patient is a pleasant 84-year-old man that I had seen in the office on the December [address] Amanda Valdes. He reports that he had developed some abdominal distension over about the previous five weeks. He describes some fullness and discomfort with occasional more severe pains. He had increasing pain when he would eat. Reported that his stool has become somewhat dark. He had seen Dr. Valdes for this and underwent a CT scan of the abdomen and pelvis on the December 14 that showed a large volume of ascites throughout the abdomen. The radiologist reported nodular enhancement of the omentum and mesentery with a suggestion of omental caking, suggestive of metastatic disease. After I saw him in the office, he was scheduled for diagnostic paracentesis and upper endoscopy. The paracentesis was performed on the December 26. At the paracentesis, he had 5300 cc of dark yellow fluid withdrawn. 500 cc of this was sent to the lab for analysis. He subsequently had an esophagogastroduodenoscopy (EGD) on the December 27. This suggested a mild stenosis at the GE junction. He had a few small erosions in the gastric antrum and was noted to have a large cratered duodenal ulcer about 20 mm in diameter. Biopsies were obtained. The biopsy from his duodenal ulcer showed mucosa with extensive ulceration and reparative changes, but no evidence of malignancy. His cytology from his peritoneal fluid showed atypical cells and the pathology from the cell block again showed atypical cells suspicious for malignancy, but it was impossible to obtain a definitive site of origin. The patient presented to the emergency department on the December 29 complaining of increasing abdominal discomfort and distension that he felt he could not tolerate any longer. He reported that his abdominal distension seemed to have recurred. He was admitted and I am now consulted to evaluate the patient. ALLERGIES: The patient denies any known drug allergies MEDICATIONS: Prior to admission include atorvastatin, low-dose aspirin, vitamin tab with lisinopril and vitamin C. SURGICAL HISTORY: Includes repair of a hernia. He has had a right hip replacement. He has had an appendectomy. He has had right and left wrist surgery. He has had prior colonoscopy on several occasions. MEDICAL HISTORY: Significant for hypertension and hypercholesterolemia. He has a history of osteoarthritis. SOCIAL HISTORY: The patient is and lives in [place]. He is a former part-time smoker. He denies any current alcohol use. FAMILY HISTORY: Significant for lung cancer in his father and colon cancer in his mother. REVIEW OF SYSTEMS: Reveals no fevers or chills. He denies chest pain or palpitations. He has had no shortness of breath, cough or wheezing. He is having on dysuria or hematuria. On admission, he had a CT of the chest, as a CT angiogram that suggested the possibility of a limited pulmonary embolus in the right lower lobe I believe it was. PHYSICAL EXAMINATION: The patient is very pleasant, older gentleman lying quietly on the hospital bed. Skin is warm and dry. He is alert and oriented. Neck is supple. Heart examination shows a regular rate and rhythm. Lungs are clear bilaterally. The abdomen is protuberant with bowel sounds present. The abdomen is soft and there does appear to be a fluid wave. There is no discrete point tenderness. LABORATORY DATA: On admission, showed a white count of 10,000, hemoglobin 12, hematocrit of 38 and a platelet count of 540,000. Differential count showed 85% neutrophils, 6% lymphocytes and 8% monocytes. Chemistry from the showed normal electrolytes. BUN 34, creatinine 1.2 and a glucose of 104. Troponin was 0.03. Total protein 5.6 and albumin of 1.8. IMPRESSION: The patient is a pleasant 84-year-old man with ascites of fairly recent onset and a CT scan suggesting probable metastatic disease of unclear origin. His upper endoscopy showed no evidence of cancer origin, but he did have an active large duodenal ulcer. His previous diagnostic paracentesis showed abnormal cytology with cells that appeared malignant, but there was not enough cellular material for a definitive diagnosis. PLAN: I discussed with the patient the option of proceeding with a laparoscopy and biopsy. I advised him that this may not change his clinical course. Any sort of chemotherapy would have to be adjusted to the tissue of origin of his metastatic disease. If we identify a type of cancer that can be responsive to chemotherapy, then the procedure may be beneficial. If we find something that is not truly amenable to chemotherapy, then the procedure will not be helpful to him. We discussed this and he had an opportunity to ask questions. He would like to have the biopsy done to better understand what his options may be. I will, therefore, look for a time to add him to the schedule. He did receive a dose of Eliquis and we will need to wait for this to have the time to get out of his system. Hopefully, we can accomplish this biopsy over the weekend. [facility]
--- NOTE | 2020-01-03 13:27 | RO ---
DATE OF OPERATION: 01/02/2020 PREOPERATIVE DIAGNOSIS: Ascites and abdominal malignancy. POSTOPERATIVE DIAGNOSIS: Ascites with extensive carcinomatosis PROCEDURE PERFORMED: Laparoscopy with biopsy of peritoneal tumor nodules. SURGEON: Best Kern MD ANESTHESIA: General. INDICATIONS FOR THE PROCEDURE: The patient is an 84-year-old man who has over the last month to two months developed significant abdominal distension, diagnosed as ascites. A CT scan showed ascites with some nodularity of the omentum suggesting metastatic disease. He had undergone a diagnostic paracentesis last week that suggested some malignant cells, but tissue typing was not possible based on the limited specimen. An upper endoscopy showed a large duodenal ulcer, but biopsies were benign. He was admitted for abdominal discomfort likely associated with his ascites and possible tumor. He is now for a diagnostic laparoscopy with biopsy. OPERATIVE PROCEDURE: The patient was brought to the operating and placed on the table in a supine position. He was placed under general endotracheal anesthesia. The patient's abdomen was prepped and draped in a sterile fashion. 25% Marcaine was infiltrate at the trocar sites as needed. I selected a point in the right upper quadrant for placement of an initial incision. Veress needle was inserted and after a positive hanging drop test, I actually was able to aspirate some light yellow ascites fluid. The abdomen was then insufflated with carbon dioxide gas. After insufflating the abdomen, a 5 mm port was placed over a 5 mm scope and advanced through the abdominal wall without difficulty. The scope was inserted. Initially examination showed innumerable nodules over all surfaces that were seen. The omentum filled the upper abdomen and was partially adherent to the anterior abdominal wall superiorly. There were innumerable little nodules and thickening of the omentum throughout. Looking at the anterior abdominal wall, there were innumerable small nodules ranging from as small as 1 to 2 mm up to perhaps 8 to 10 mm, covering all surfaces. There were several loops of small bowel that were visible inferiorly and the bowel wall appeared relatively spared from tumor, but there was some portions of fat coming off the sigmoid colon that were also involved by multiple small nodules. A second 5 mm port was placed slightly further down in the abdomen under direct vision. A biopsy forceps was inserted and bite biopsies were obtained from multiple small nodules on the anterior abdominal wall. Hemostasis was ensured with the cautery. Final inspection showed no evidence of any ongoing bleeding. I did use a suction basket turner to remove approximately 2400 ml of ascites from the abdomen. The patients abdomen was then deflated and the trocars were removed. The skin incisions were closed with buried Vicryl sutures and I then placed two 3-0 nylon sutures across each of his incisions to close the skin with some subcutaneous tissues to try to reduce the risk of an ascites fluid leak. Light dressings were applied followed by OpSites. The patient tolerated the procedure well without apparent complication. He was awakened in the operating room, extubated and moved to the recovery room in stable condition. [facility]
[2020-01-03 14:00] VITALS: BP 103/61
[2020-01-06] MEDS ORDERED: APIXABAN 5 MG TAB (ELIQUIS) PO SCH (21:00)
--- NOTE | 2020-01-08 09:38 | DS.PDOC ---
Discharge Summary General Date of Admission Dec 30, 2019 at 20:30 Date of Discharge 01/03/20 Discharge Summary PROCEDURES PERFORMED DURING STAY: Laparoscopy with biopsy of peritoneal tumor nodules. DISCHARGE DIAGNOSES: Partial SBO Metastatic cancer in the abdomen from unknown primary Malignant Ascites with extensive carcinomatosis Chronic Pulmonary Embolism, right posterior basilar segment, partially occlusive Hypertensive Duodenal ulcer and erosive gastropathy Esophageal stenosis Moderate to large Chronic Left pleural effusion asymptomatic. COMPLICATIONS/CHIEF COMPLAINT: Metastatic Cancer, Partial Small Bowel Obstruction. HOSPITAL COURSE: Patient is an 84-year-old male, past medical history significant for recently diagnosed metastatic disease of unknown primary source with omental caking and mesenteric deposits with Ascites. He presented to the emergency department the evening of 12/30/23 increasing abdominal pain and discomfort. Earlier in the week, patient underwent paracentesis with removal of over 5000 mL of fluid. He had an EGD also earlier this which showed benign esophageal stricture, Had Colonoscopy in 2019 had multiple tubular adenomas. Imaging in the emergency department demonstrated a possible small bowel obstruction vs Ileus. Surgery was contacted who recommended refraining from NG tube placement, keeping the patient nothing by mouth with adequate IVF. CT angio of chest showed chronic right basilar Pulmonary Embolism and left-sided pleural effusion moderate. Effusion, ascites and PE are most likely related to patient's underlying malignancy. Given these findings, in the setting of metastatic disease, patient was admitted to the hospitalist service for further evaluation and management. Partial SBO seems to have resolved at this time Diet as tolerated. Chronic Pulmonary Embolism, right posterior basilar segment, partially occlusive, started on eliquis. Metastatic cancer with Omental/Peritoneal Mets, unknown primary There were malignant cells in the ascites however immunohistochemistry could not make a definitive diagnosis from the cells due to the paucity of the cells Discussed with Dr Urena will set up appointment in 1 week. PSA and Ca 19-9 normal. CEA only 5.1 May need mesenteric lymph node / omental bx to get a tissue diagnosis. S/p Laparoscopic Biopsy Hypertension Lisinopril reduced dose will stop HCTZ. Esophageal stenosis S/P endoscopic evaluation on 12/[address] Kern. Biopsy did not show any malignancy Continue PPI Duodenal ulcer and erosive gastropathy seen in EGD on 12/28/19 Duodenal mucosa with extensive ulceration and reparative changes. Negative for malignancy. PPI Left Pleural effusion asymptomatic. DISCHARGE MEDICATIONS: Please see below. ALLERGIES: Please see below. PHYSICAL EXAMINATION ON DISCHARGE: VITAL SIGNS: Please see below. GENERAL APPEARANCE: Laying flat in bed awake, alert, no acute distress. HEENT: Normocephalic, atraumatic, symmetric, EOMI, PERRLA, mucous membranes moist. CARDIOVASCULAR: Regular rate and rhythm without appreciable murmur/ rub or gallop LUNGS: Lung sounds diminished in the bases bilaterally, more so on the left than the right. Left-sided basilar crackles. Otherwise good air movement with symmet claudia chest rise. No appreciable wheezing or rhonchi ABDOMEN: Distended, round, mild tenderness in the lower quadrants bilaterally, good bowel sounds appreciated. No overlying skin changes MUSCULOSKELETAL: Patient is able to move all extremities equally bilaterally EXTREMITIES: No edema No calf tenderness NEUROLOGICAL: Strength 5 out of 5 in upper and lower extremities. No facial grace op, aphasia or dysarthria. Sensorium intact PSYCHIATRIC: Mood and affect are appropriate given patient's current medical conditions. LABORATORY DATA: Please see below. ACTIVITY: [As tolerated]. DIET: As tolerated. DISPOSITION: 01 Home, Self-Care. DISCHARGE INSTRUCTIONS: Follow up With Dr Kern in [address] Urena. ITEMS TO FOLLOWUP ON ON OUTPATIENT: Biopsy results DISCHARGE CONDITION: [Stable]. TIME SPENT ON DISCHARGE: 35 minutes. Vital Signs/I&Os Vital Signs Date Time Temp Pulse Resp B/P (MAP) Pulse Ox O2 Delivery O2 Flow Rate FiO2 01/03/20 14:00 98.7 99 20 103/61 (75) 93 Room Air 01/03/20 10:00 0.5 Discharge Medications Scheduled Apixaban (Eliquis) 5 Mg Tablet, 1 TAB PO BID Ascorbic Acid (Ascorbic Acid) 500 Mg Tablet, 1,000 MG PO DAILY, (Reported) Cholecalciferol (Vitamin D3) (Vitamin D3) 1,000 Unit Tablet, 1,000 UNITS PO DAILY, (Reported) Multivitamins (Thera M Plus Tablet) 1 Each Tablet, 1 TAB PO DAILY, (Reported) Omeprazole (Omeprazole) 40 Mg Capsule.dr, 40 MG PO BID, (Reported) Ondansetron HCl (Zofran) 4 Mg Tablet, 1 TAB PO Q6H Scheduled PRN Acetaminophen (Acetaminophen ER) 650 Mg Tablet.er, 650 MG PO Q8H PRN for PAIN, (Reported) Hydrocodone/Acetaminophen ([place] 5-325 Tablet) 1 Each Tablet, 1-2 TAB PO Q4-6HP PRN for pain Allergies Coded Allergies: No Known Allergies (Unverified , 12/23/19) MASON MCDONNELL MD Jan 08, 2020 09:36
[2020-01-13] MEDS ORDERED: FURO40TA2 PO (12:25)
== END 2020-01-03 15:35 | disposition home or self-care (01) | DRG 357 ==
LOC: M ED 14:15 → EDBD 14:15 → M ED INP 20:30 → ENRESERV 21:33 → M PCU 22:41 → M MSPAV 01-01 17:21
PROVIDERS: ADMIT Internal Medicine; ATTEND Internal Medicine Nephrology
PROC: 0DBW4ZX Excision of Peritoneum, Percutaneous Endoscopic Approach, Diagnostic (ICD-10-PCS; 2020-01-02)
PROC: 0W9G4ZZ Drainage of Peritoneal Cavity, Percutaneous Endoscopic Approach (ICD-10-PCS; principal; 2020-01-02 11:00)
DX: K56.7 Ileus, unspecified (principal); C78.6 Secondary malignant neoplasm of retroperitoneum and peritoneum; J91.0 Malignant pleural effusion; I27.82 Chronic pulmonary embolism; R18.8 Other ascites; E86.0 Dehydration; K31.9 Disease of stomach and duodenum, unspecified; K26.9 Duodenal ulcer, unspecified as acute or chronic, without hemorrhage or perforation; R00.0 Tachycardia, unspecified; Z66 Do not resuscitate; E78.00 Pure hypercholesterolemia, unspecified; K22.2 Esophageal obstruction; Z98.41 Cataract extraction status, right eye; Z98.42 Cataract extraction status, left eye; Z96.641 Presence of right artificial hip joint; Z79.01 Long term (current) use of anticoagulants; Z79.899 Other long term (current) drug therapy; Z87.891 Personal history of nicotine dependence

== ENCOUNTER 2020-01-05 14:16 | Emergency (ER) | payer MEDICARE ==
[~2020-01-05] VITALS: Ht 175.3 cm; Wt 83.2 kg
[~2020-01-05 14:16] MED LIST changes: +ASCO500T PO; +D31000TA2 PO; +ELIQ5TAB PO; +OMEP-221 PO; +VITMTA PO
[2020-01-05] MEDS ORDERED: KETOROLAC 30 MG/ML 1ML VIAL IV ONE (15:00)
[2020-01-05] MEDS ORDERED: PANTOPRAZOLE 40MG VIAL (C9113 PER 1) IV ONE (15:00)
--- NOTE | 2020-01-05 15:28 | REP ---
INDICATION: worsening abdominal pain COMPARISON: 12/30/2019 TECHNIQUE: Axial noncontrast images from the lung bases to the pubic symphysis with coronal and sagittal reformations. This CT examination was performed using the following dose reduction techniques: Automated exposure control, adjustment of mA and/or kv according to the patient's size, and use of iterative reconstruction technique. FINDINGS: Large left pleural effusion with partial left lower lobe collapse and lingular atelectasis is again identified and similar to prior examination. Moderate amount of trapped fluid in the lesser sac is identified along with small amount of residual abdominal fluid extending into the pelvis which is considerably improved when compared to prior examination. Extensive omental caking consistent with malignancy and metastatic disease is identified. Liver, spleen, pancreas, gallbladder, bilateral adrenal glands are grossly normal although evaluation is limited by lack of contrast and significant respiratory motion artifact. The kidneys demonstrate relatively stable bilateral cysts without acute perinephric stranding or hydronephrosis. There is no evidence for bowel obstruction although pathologic process involving the enteric system cannot be excluded. Scattered diverticulosis noted. Evaluation of the pelvis is limited by streak artifact from right hip prosthesis and the bladder and prostate/seminal vesicles are incompletely evaluated. No obvious retroperitoneal adenopathy. Atherosclerotic changes to the aorta and vasculature noted without aneurysm. Musculoskeletal structures without acute osseous abnormality. Subcutaneous edema primarily noted along the anterior abdomen and right flank have increased from prior examination. IMPRESSION: 1. In comparison with prior examination there appears to be decreased ascites. Moderate amount of trapped fluid identified in the lesser sac. Extensive metastatic disease including significant omental caking again noted. 2. Continued large left pleural effusion with associated left lower lobe collapse/atelectasis. 3. Further nonacute findings as described above. <Electronically signed by Yuan Gallegos > 01/05/20 [id number]
[2020-01-05 15:51] LABS: BASO # 0.1 10^3/uL (0.0-0.2); BASO % 0.4 % (0.0-1.0); HEMATOCRIT 39.1 % (42.0-52.0); HEMOGLOBIN 12.6 g/dl (13.5-17.5); LYMPH # 0.8 10^3/uL (1.5-5.0); LYMPH % 5.2 % (24.0-44.0); MEAN CORPUSCULAR HEMOGLOBIN 28.9 pg (27.0-33.0); MEAN CORPUSCULAR HGB CONC 32.2 g/dl (32.0-36.5); MEAN CORPUSCULAR VOLUME 89.7 fl (80.0-96.0); MONO % 6.3 % (0.0-5.0); NEUTROPHILS # 13.7 10^3/uL (1.5-8.5); PLATELET COUNT, AUTOMATED 533 10^3/uL (150-450); RED BLOOD COUNT 4.36 10^6/uL (4.30-6.10); WHITE BLOOD COUNT 15.7 10^3/uL (4.0-10.0)
[2020-01-05 16:24] LABS: ALBUMIN 1.7 GM/DL (3.2-5.2); ALT/SGPT 13 U/L (12-78); BILIRUBIN,DIRECT < 0.1 MG/DL (0.0-0.2); BILIRUBIN,TOTAL 0.3 MG/DL (0.2-1.0); BLOOD UREA NITROGEN 26 MG/DL (7-18); CALCIUM LEVEL 7.6 MG/DL (8.8-10.2); CARBON DIOXIDE LEVEL 28 MEQ/L (21-32); CHLORIDE LEVEL 103 MEQ/L (98-107); CREATININE FOR GFR 1.44 MG/DL (0.70-1.30); GLUCOSE, FASTING 98 MG/DL (70-100); LIPASE 424 U/L (73-393); POTASSIUM SERUM 4.7 MEQ/L (3.5-5.1); SODIUM LEVEL 138 MEQ/L (136-145); TOTAL PROTEIN 5.5 GM/DL (6.4-8.2)
[2020-01-05] MEDS ORDERED: ZOFR4TAB16 PO (17:07)
[2020-01-05 17:15] VITALS: BP 116/72
[2020-01-05] MEDS ORDERED: NORC1TAB7 PO (17:19)
--- NOTE | 2020-01-07 08:01 | ED PDOC ---
Post-Departure Follow-Up dr moreno faxed formal report of ct abd/p for fu Anu Cuba MD Jan 07, 2020 08:01
[2020-01-13] MEDS ORDERED: FURO40TA2 PO (12:25)
== END 2020-01-05 17:36 | disposition home or self-care (01) ==
LOC: M ED 14:16
DX: R18.8 Other ascites (principal); C79.9 Secondary malignant neoplasm of unspecified site; I10 Essential (primary) hypertension; Z79.899 Other long term (current) drug therapy; Z79.01 Long term (current) use of anticoagulants; Z87.891 Personal history of nicotine dependence
CPT/HCPCS: 74176; 80048; 80076; 83690; 85025; 96374; 96375; 99284; C9113; J1885

== ENCOUNTER → 2020-01-18 | Outpatient (CLI) | payer MEDICARE ==
[~2020-01-18] MED LIST changes: +FURO40TA2 PO; +NORC1TAB7 PO; +SODIUM BICARBONATE 8.4% INJ 50MEQ 50 ML VIAL As Ordered ONE; +ZOFR4TAB16 PO
[2020-01-18 12:31] VITALS: BP 118/68
--- NOTE | 2020-01-18 13:50 | REP ---
INDICATION: ASCITES COMPARISON: None. TECHNIQUE: The procedure was performed by DANA Golden, under the direct supervision of Dr. Lopez The risks and benefits of the procedure were explained to the patient and an informed consent was obtained both verbally and written. Directly prior to the start of the procedure a formal time-out was completed in the procedure room. The largest pocket of fluid was localized in the left lower quadrant using ultrasound guidance. The skin was prepped and draped in a sterile fashion. Eleven ML of buffered lidocaine was used as a local anesthetic. An 8-Portuguese multi side-hole catheter was inserted using trocar technique. FINDINGS: 3000 mL of light red tinged fluid was removed in total, 1400 mL were sent to the lab for further analysis. The patient tolerated the procedure well and there were no immediate complications. After the appropriate amount of monitored convalescence, the patient was discharged from the department. IMPRESSION: Ultrasound-guided paracentesis with removal of 3000 mL light red tinge ascites. <Electronically signed by Cheri Moser > 01/18/20 1312 <Electronically signed by Medhat Lopez > 01/18/20 1345
== END ==
LOC: M IRPRO 11:15
PROVIDERS: ATTEND Internal Medicine Hematology & Oncology
DX: R18.0 Malignant ascites (principal)

== ENCOUNTER 2020-01-24 00:42 | Inpatient (IN) | payer MEDICARE ==
[2020-01-24] VITALS (28 sets, daily range): BP systolic 71–125; BP diastolic 48–79
[~2020-01-24] VITALS: Ht 175.3 cm; Wt 81.3 kg
[~2020-01-24 00:42] MED LIST changes: -SODIUM BICARBONATE 8.4% INJ 50MEQ 50 ML VIAL As Ordered ONE
--- NOTE | 2020-01-24 01:57 | REPVR ---
PROCEDURE INFORMATION: Exam: CT Head Without Contrast Exam date and time: 01/24/2020 1:44 AM Age: 84 years old Clinical indication: Altered mental status/memory loss TECHNIQUE: Imaging protocol: Computed tomography of the head without contrast. Radiation optimization: All CT scans at this facility use at least one of these dose optimization techniques: automated exposure control; mA and/or kV adjustment per patient size (includes targeted exams where dose is matched to clinical indication); or iterative reconstruction. COMPARISON: No relevant prior studies available. FINDINGS: Brain: No intracranial mass, focal mass effect or midline shift. No acute intracranial hemorrhage. Mild decreased attenuation in periventricular/centrum semiovale white matter. No focal effacement of cortical sulci to indicate acute cortical infarct. Prior infarct, right parietal, with encephalomalacia and compensatory right lateral ventricle dilatation Prominent ventricles and CSF spaces suggest parenchymal volume loss. Bones/joints: No calvarial fracture or destructive process. Paranasal sinuses: Visualized paranasal sinuses are unremarkable. Mastoid air cells: Mastoid air cells are normally aerated. Orbital cavity: Visualized globes and orbits are unremarkable. Soft tissues: No focal extracranial soft tissue swelling. IMPRESSION: 1. No acute intracranial abnormality. 2. Atrophy, remote right parietal infarct and chronic microangiopathic change in supratentorial white matter. Electronically signed by: Marquis Bell On 01/24/2020 01:57:19 AM
--- NOTE | 2020-01-24 02:04 | REPVR ---
PROCEDURE INFORMATION: Exam: XR Chest, 1 View Exam date and time: 01/24/2020 1:55 AM Age: 84 years old Clinical indication: Other: AMS; Additional info: Altered mental status TECHNIQUE: Imaging protocol: XR of the chest Views: 1 view. COMPARISON: CR Abdomen,Flat Upright,PA CHEST 12/30/2019 3:49 PM FINDINGS: Large left pleural effusion, perhaps marginally increased since the prior exam. Adjacent compressive atelectasis or consolidation in the left lung. No underlying pulmonary edema. No pneumothorax. No mediastinal lymphadenopathy. Right lung is unremarkable. Degenerative changes are seen in bilateral glenohumeral joints IMPRESSION: Left pleural effusion, perhaps increased in size over the interim with adjacent atelectasis or consolidation Electronically signed by: Marquis Bell On 01/24/2020 02:04:00 AM
[2020-01-24 02:53] LABS: BASO % 0.2 % (0.0-1.0); EOS % 0.1 % (0.0-3.0); HEMATOCRIT 35.4 % (42.0-52.0); HEMOGLOBIN 11.3 g/dl (13.5-17.5); LYMPH # 0.3 10^3/uL (1.5-5.0); MEAN CORPUSCULAR HEMOGLOBIN 28.8 pg (27.0-33.0); MEAN CORPUSCULAR HGB CONC 31.9 g/dl (32.0-36.5); MEAN CORPUSCULAR VOLUME 90.1 fl (80.0-96.0); MONO # 0.6 10^3/uL (0.0-0.8); MONO % 5.2 % (0.0-5.0); NEUTROPHILS # 9.9 10^3/uL (1.5-8.5); PLATELET COUNT, AUTOMATED 390 10^3/uL (150-450); RED BLOOD COUNT 3.93 10^6/uL (4.30-6.10); WHITE BLOOD COUNT 10.9 10^3/uL (4.0-10.0)
[2020-01-24 03:04] LABS: INR 1.29; PARTIAL THROMBOPLASTIN TIME 30.3 SECONDS (24.2-38.5); PROTHROMBIN TIME 16.4 SECONDS (12.5-14.3)
[2020-01-24 03:28] LABS: ACETAMINOPHEN LEVEL 2.4 UG/ML (10.0-30.0); ALBUMIN 1.8 GM/DL (3.2-5.2); ALT/SGPT 16 U/L (12-78); BILIRUBIN,DIRECT 0.3 MG/DL (0.0-0.2); BILIRUBIN,TOTAL 0.4 MG/DL (0.2-1.0); BLOOD UREA NITROGEN 71 MG/DL (7-18); CALCIUM LEVEL 7.7 MG/DL (8.8-10.2); CARBON DIOXIDE LEVEL 25 MEQ/L (21-32); CHLORIDE LEVEL 98 MEQ/L (98-107); CK-MB VALUE MASS 3.4 NG/ML (<3.6); CPK CREATINE PHOSPHOKINASE 107 U/L (39-308); CREATININE FOR GFR 5.33 MG/DL (0.70-1.30); ETHYL ALCOHOL (ETHANOL) < 0.003 % (0.000-0.010); GLUCOSE, FASTING 89 MG/DL (70-100); MB/CK RELATIVE INDEX 3.18 (< OR =4); POTASSIUM SERUM 5.3 MEQ/L (3.5-5.1); SALICYLATE LEVEL 1.7 MG/DL (5.0-30.0); SODIUM LEVEL 133 MEQ/L (136-145); TOTAL PROTEIN 5.6 GM/DL (6.4-8.2); TROPONIN I 0.06 NG/ML (< 0.10)
[2020-01-24 03:56] LABS: AMPHETAMINES LEVEL URINE NEGATIVE (NEGATIVE); BARBITURATES URINE NEGATIVE (NEGATIVE); BENZODIAZEPINES URINE NEGATIVE (NEGATIVE); CANNABINOIDS URINE NEGATIVE (NEGATIVE); COCAINE METABOLITE URINE NEGATIVE (NEGATIVE); METHADONE URINE NEGATIVE (NEGATIVE); OPIATES URINE NEGATIVE (NEGATIVE); PHENCYCLIDINE URINE NEGATIVE (NEGATIVE)
[2020-01-24] MEDS ORDERED: NS 500 ML IV ONE (04:45)
[2020-01-24] MEDS ORDERED: LORazepam 2 MG/ML VIAL IV STA (05:12)
[2020-01-24] MEDS ORDERED: OXYC-517 PO (05:28)
[2020-01-24] MEDS ORDERED: ONDA-83 PO (05:28)
[2020-01-24] MEDS ORDERED: ELIQ5TAB PO (05:28)
[2020-01-24] MEDS ORDERED: FURO40TA2 PO (05:28)
[2020-01-24] MEDS ORDERED: PEGPOW PO (05:32)
[2020-01-24 06:14] LABS: RSV AMPLIFICATION NEGATIVE (NEGATIVE)
[2020-01-24] MEDS ORDERED: ACETAMINOPHEN TAB 650MG DOSE (2X325MG) PO PRN (06:45)
[2020-01-24] MEDS ORDERED: NS 1,000 ML IV SCH (06:45)
[2020-01-24] MEDS ORDERED: ONDANSETRON 4 MG TAB PO PRN (06:45)
[2020-01-24] MEDS ORDERED: oxyCODONE 5MG TAB PO PRN (06:45)
--- NOTE | 2020-01-24 06:46 | HPEPDOC ---
General Date of Admission Date of Service: Jan 24, 2020 Primary Care Physician: Amanda Valdes Attending Physician: Danial Jacinto MD Chief Complaint The patient is a 84-year-old male admitted with a reason for visit of Hallucinations. Source: Patient, Old records Exam Limitations: No limitations History of Present Illness (This H&P is an up-to-date to the H&P done within the last 30 days on 12/30/2019. Any details that are missing from this document should be out on that one.) Mr. Mireles comes to the ER with concerns for hallucinations. His found him having a one-sided argument. When she asked what he was doing he explained that he was hearing voices and disagreed with what they're saying and so he was arguing with them about it. He had insight into the fact that there was no one there he was talking to, nonetheless, he felt it important to address the things they were saying. In the emergency department he also reported auditory hallucinations to the ER physician, again with good insight to the fact that these were not actual voices. However, when the ER doctor returned to his room he was again having a heated argument with himself. Home Medications Scheduled Apixaban (Eliquis) 5 Mg Tablet, 5 MG PO BID, (Reported) Ascorbic Acid (Ascorbic Acid) 500 Mg Tablet, 1,000 MG PO DAILY, (Reported) Furosemide (Furosemide) 40 Mg Tablet, 40 MG PO DAILY, (Reported) Multivitamins (Thera M Plus Tablet) 1 Each Tablet, 1 TAB PO DAILY, (Reported) Omeprazole (Omeprazole) 40 Mg Capsule.dr, 40 MG PO BID, (Reported) Polyethylene Glycol 3350 (Polyethylene Glycol 3350) 510 Gm Powder, 17 GRAM PO DAILY, (Reported) Scheduled PRN Ondansetron HCl (Ondansetron HCl) 4 Mg Tablet, 4 MG PO BID PRN for NAUSEA OR VOMITING, (Reported) Oxycodone HCl (Oxycodone HCl) 5 Mg Tablet, 5 MG PO QID PRN for PAIN, (Reported) Allergies Coded Allergies: No Known Allergies (Unverified , 12/23/19) Past Medical History Medical History Metastatic carcinoma, unknown primary (Chronic) pulmonary embolism, discharge from the hospital on apixaban 3-4 weeks ago Esophageal stricture Hypertension Right hip osteoarthritis Surgical History Polypectomy, 2008, 2011, 2015 Bilateral cataracts, 2014 Right total hip replacement, 2015 Bilateral carpal tunnel release, 2015 Laparoscopy with biopsy of peritoneal tumor nodules, 12/2019 Family History Father: Lung cancer Mother: Colon cancer Denies any family history of breast or prostate cancer Social History Marital status: Resides in: Lives in [place] with his . Employment: Retired [email or web address] Tobacco use: Current nonsmoker, patient reports intermittently smoking pipes and cigars but has not done so for 30 years. ETOH: Denies any current alcohol use Illicit drug use: Denies any current illicit or IV drug use A-FIB/CHADSVASC A-FIB History Current/History of A-Fib/PAF?: No Current PO Anticoag Therapy: Yes Review of Systems Constitutional: Reports: Weakness; Denies: Chills, Fever ENT: Denies: Dysphagia, Sore Throat, Epistaxis Skin: Denies: Rash, Lesions Pulmonary: Denies: Dyspnea, Cough, Pleuritic Chest Pain Cardiovascular: Denies: Chest Pain, Palpitations Gastrointestinal: Reports: Abdominal Pain; Denies: Nausea, Vomiting, Diarrhea, Constipation, Melena, Hematochezia Genitourinary: Denies: Dysuria, Hematuria Hematologic: Denies: Bruising, Bleeding Excessively Neurological: Denies: Weakness, Change in speech, Confusion Psych: Reports: Mood Normal, Other Psych (auditory hallucinations) Physical Examination General Exam: Positive: Alert, Cooperative, No Acute Distress (laying comfortably in his ER stretcher when I entered the room) Eye Exam: Positive: PERRLA, Conjunctiva & lids normal, Other Eye Symptoms (beginning to have a sunken appearance); Negative: Sclera icteric ENT Exam: Positive: Atraumatic, Mucous membr. moist/pink, Pharynx Normal Neck Exam: Positive: Supple; Negative: Lymphadenopathy (including supraclavicular) Chest Exam: Positive: Diminished; Negative: Normal air movement (basically normal no movement of air noted in the left posterior base. Dull to percussion to just under half way up the left posterior lung field) Heart Exam: Positive: Rate Normal, Regular Rhythm, Normal S1, Normal S2, Murmurs (there is a 3/6 midsystolic crescendo decrescendo murmur noted at the right upper sternal border); Negative: Rubs Abdomen Exam: Positive: Soft; Negative: Normal bowel sounds, Tenderness, Hepatospenomegaly Extremity Exam: Positive: Normal pulses; Negative: Clubbing, Cyanosis, Edema Skin Exam: Positive: Nl turgor and temperature; Negative: Breakdown, Lesion Neuro Exam: Positive: Normal Gait, Normal Speech, Cranial Nerves 3-12 NL, Refl exes 2+ Psych Exam: Positive: Mental status NL, Mood NL, Oriented x 3 Vital Signs Vital Signs Date Time Temp Pulse Resp B/P (MAP) Pulse Ox O2 Delivery O2 Flow Rate FiO2 01/24/20 01:09 97.9 92 20 95/53 89 Room Air Laboratory Data Labs 24H Laboratory Tests 2 01/24/20 02:30: Immature Granulocyte % (Auto) 0.5, Neutrophils (%) (Auto) 91.0H, Lymphocytes (%) (Auto) 3.0L, Monocytes (%) (Auto) 5.2H, Eosinophils (%) (Auto) 0.1, Basophils (%) (Auto) 0.2, Neutrophils # (Auto) 9.9H, Lymphocytes # (Auto) 0.3L, Monocytes # (Auto) 0.6, Eosinophils # (Auto) 0.0, Basophils # (Auto) 0.0, Nucleated Red Blood Cells % (auto) 0.0, Prothrombin Time 16.4H, Prothromb Time International Ratio 1.29, Activated Partial Thromboplast Time 30.3, Anion Gap 10, Glomerular Filtration Rate 11.0L, Lactic Acid Level 1.0, Calcium Level 7.7L, Total Bilirubin 0.4, Direct Bilirubin 0.3H, Aspartate Amino Transf (AST/SGOT) 47H, Alanine Aminotransferase (ALT/SGPT) 16, Alkaline Phosphatase 62, Ammonia < 10, Total Creatine Kinase 107, Creatine Kinase MB 3.4, Creatine Kinase MB Relative Index 3.18, Troponin I 0.06, Total Protein 5.6L, Albumin 1.8L, Albumin/Globulin Ratio 0.5, Thyroid Stimulating Hormone (TSH) 25.300H, Salicylates Level 1.7L, Acetaminophen Level 2.4L, Ethyl Alcohol Level < 0.003 01/24/20 02:42: Bedside Glucose (Misc Panel) 95 01/24/20 03:21: Urine Color NGUYEN, Urine Appearance TURBIDH, Urine pH 5.0, Urine Specific [place] 1.014, Urine Protein 1+H, Urine Glucose (UA) NEGATIVE, Urine Ketones NEGATIVE, Urine Blood 1+H, Urine Nitrite NEGATIVE, Urine Bilirubin NEGATIVE, Urine Urobilinogen 0.2, Urine Leukocyte Esterase NEGATIVE, Urine WBC (Auto) 6H, Urine RBC (Auto) 4H, Urine Hyaline Casts (Auto) 0, Urine Bacteria (Auto) NEGATIVE, Urine Squamous Epithelial Cells 0, Urine Amorphous Sediment SMALLH, Urine Sperm (Auto) , Urine Opiates Screen NEGATIVE, Urine Methadone Screen NEGATIVE, Urine Barbiturates Screen NEGATIVE, Urine Phencyclidine Screen NEGATIVE, Urine Amphetamines Screen NEGATIVE, Urine Benzodiazepines Screen NEGATIVE, Urine Cocaine Metabolite Screen NEGATIVE, Urine Cannabinoids Screen NEGATIVE 01/24/20 05:19: Coronavirus (COVID-19)(PCR) NEGATIVE, Influenza Type A (RT-PCR) NEGATIVE, Influenza Type B (RT-PCR) NEGATIVE, Respiratory Syncytial Virus (PCR) NEGATIVE CBC/BMP Laboratory Tests 01/24/20 02:30 Problems (1) Acute renal failure (2) Auditory hallucination (3) Metastatic carcinoma Status: Acute (4) Pleural effusion Status: Acute (5) Pulmonary embolism Status: Acute (6) Protein-calorie malnutrition (7) HTN (hypertension) Danial Jacinto MD Jan 24, 2020 06:46
[2020-01-24] MEDS ORDERED: APIXABAN 5 MG TAB (ELIQUIS) PO SCH (09:00)
--- NOTE | 2020-01-24 11:26 | IPNPDOC ---
Text Note Date of Service The patient was seen on 01/24/20. NOTE Subjective Patient was seen and examined this morning in the ER. The patient seems to be comfortable, alert to person and place, not time. He is scheduled to go for an IR guided thoracocentesis today. Physical examination GENERAL APPEARANCE: Laying flat in bed awake, alert, no acute distress. HEENT: Normocephalic, atraumatic, symmetric, EOMI, PERRLA, mucous membranes pj st. CARDIOVASCULAR: Regular rate and rhythm without appreciable murmur/ rub or gallop LUNGS: Lung sounds diminished in the bases bilaterally, more so on the left than the right. Otherwise good air movement with symmetric chest rise. No appreciable wheezing or rhonchi ABDOMEN: Distended, round, mild tenderness in the lower quadrants bilaterally, good bowel sounds appreciated. No overlying skin changes MUSCULOSKELETAL: Patient is able to move all extremities equally bilaterally EXTREMITIES: No edema No calf tenderness NEUROLOGICAL: Strength 5 out of 5 in upper and lower extremities. No facial dr oop, aphasia or dysarthria. Sensorium intact PSYCHIATRIC: Mood and affect are appropriate given patient's current medical conditions. Labs: Reviewed Radiology : Reviewed. Assessment and plan Patient is an 84-year-old male, past medical history significant for recently diagnosed metastatic disease of unknown primary source with omental and mesenteric deposits with Ascites. He presented to the emergency department the evening on 01/23/20 with alteration in mental status. As per him, he took his pain medication, oxycodone, and after that was confused and as per his was talking to somebody which was not even in the room. On my encounter. He states that he does not remember anything like that. He has been following up with hematology oncology and they have scheduled port placement and the workup for the primary. He got a CT scan of the head which showed no acute pathology and an x-ray of the lungs showed increasing effusion in the left lung which has been more than noticed previously. He also has a distended abdomen with a fluid thrill. He was also found to have in acute kidney injury with a creatinine of 5.3 and potassium of 5.3 Currently, he has been admitted for alteration in mental status likely secondary to uremia and polypharmacy with oxycodone along with acute kidney injury 1. Alteration in mental status. Under evaluation could be multifactorial right earache related to uremia because of AK I with a creatinine of 5.3 and polypharmacy with oxycodone. CT scan of the head is negative other metabolic causes have been ruled out. Infectious workup has been started. We will address individual cause. 2. Acute kidney injury. The patient is not providing much history but states that he has been taking Aleve but does not quantify how much for the last couple of weeks. This could be a reason of his acute kidney injury. We will get a renal sonogram and a Ceja catheter reinserted to rule out any postobstructive pathology. Given his ascites. It's hard to examine his suprapubic fullness. We will continue. Input output monitoring. Avoid any nephrotoxic drugs. 3. Metastatic cancer with Omental/Peritoneal Mets, unknown primary : There were malignant cells in the ascites however immunohistochemistry could not make a definitive diagnosis from the cells due to the paucity of the cells. . He has a Dr. Easton as a his oncologist and will follow up with him once ACUTE issues are resolved. 4. Recurrent pleural effusions. He has a large left-sided pleural effusion. Week for thoracocentesis. IR today. We will continue to follow. Will set LDH and total protein to rule out exudative versus transudative, but apparently last time it was transudative. 5. Hyperkalemia. Related to petechiae. We will hold any nephrotoxic drugs and monitor. Hyperkalemia 6. Hypertension. Hold any nephrotoxic antihypertensive drugs and continue to monitor. 7. Ascites. Likely secondary to omental and peritoneal metastasis. We will get paracentesis if required. 8. Esophageal stenosis : S/P endoscopic evaluation on 12/[address] Kern. Biopsy did not show any malignancy . Continue PPI 9. Duodenal ulcer and erossive gastropathy seen in EGD on 12/28/19. Duodenal mucosa with extensive ulceration and reparative changes. Negative for malignancy. Continue PPI DVT PROPHYLAXIS:: Lovenox CODE STATUS: Patient confirms DNR/trial of intubation VS,Fishbone, I+O VS, Fishbone, I+O Laboratory Tests 01/24/20 02:30 Vital Signs Date Time Temp Pulse Resp B/P (MAP) Pulse Ox O2 Delivery O2 Flow Rate FiO2 01/24/20 07:00 128/79 (95) 01/24/20 06:57 121 87 01/24/20 01:09 97.9 20 Room Air JOSIAS GUY MD Jan 24, 2020 11:26
[2020-01-24 12:00] LABS: LDH LACTATE DEHYDROGENASE 556 U/L (87-241)
[2020-01-24 12:24] LABS: APPEARANCE, BODY FLUID HAZY (CLEAR); PLEURAL FL COLOR YELLOW (COLORLESS); SOURCE, BODY FLUID PLEURAL
[2020-01-24 12:32] LABS: PH BODY FLUID 7.523 UNITS (NOT ESTABLISHED); SOURCE, BODY FLUID pH PLEURAL
--- NOTE | 2020-01-24 12:35 | REP ---
INDICATION: POST LEFT THORA, 2 VIEW. Status post left thoracentesis, 1800 mL. COMPARISON: Comparison chest x-ray January 24, 2020.. TECHNIQUE: Sitting AP portable chest x-ray. FINDINGS: The left pleural effusion is much improved. There is still some blunting of the lateral pleural angle. There is no evidence of pneumothorax. Oxygen delivery tubing is seen. Heart is not felt to be enlarged. No new infiltrate is seen. IMPRESSION: Improved left hemithorax post left thoracentesis. No complication seen. <Electronically signed by Medhat Lopez > 01/24/20 [id number]
[2020-01-24 12:57] LABS: LDH, BODY FLUID 352 U/L (NOT ESTABLISHED); SOURCE, BODY FLUID GLUCOSE PLEURAL; SOURCE, BODY FLUID LDH PLEURAL; SOURCE, BODY FLUID TOT PROTEIN PLEURAL; TOTAL PROTEIN, BODY FLUID 3.9 G/DL (NOT ESTABLISHED)
[2020-01-24] MEDS ORDERED: CALCIUM GLUCONATE 1,000 MG in D5W MINI-BAG PLUS 100 ML IV ONE (13:00)
[2020-01-24] MEDS: OMEPRAZOLE 20 MG CAP PO SCH ×2 (13:15→22:36)
[2020-01-24] MEDS: ASCORBIC ACID 500 MG TAB PO SCH (13:15)
[2020-01-24] MEDS: MULTIVITAMINS/MINERALS THERAP 1 TAB PO SCH (13:15)
[2020-01-24] MEDS: MIRALAX *UNIT DOSE* 17GM PACKET PO SCH (13:16)
[2020-01-24 15:28] LABS: ABG BASE EXCESS -3.4 (-2.0-2.0); ABG HCO3 21.7 MEQ/L (22.0-26.0); ABG O2 SATURATION 90.4 % (95.0-99.0); ABG PARTIAL PRESSURE CO2 39.6 mmHg (35.0-45.0); ABG PARTIAL PRESSURE O2 59.7 mmHg (75.0-100.0); ABG STANDARD HCO3 21.5 MEQ/L (22.0-26.0); ABG TOTAL CO2 22.9 MEQ/L (23.0-31.0); ABG pH (ARTERIAL) 7.357 UNITS (7.350-7.450)
[2020-01-24] MEDS ORDERED: FUROSEMIDE 40MG/4ML VIAL (J1940) As Ordered ONE (16:59)
[2020-01-24] MEDS ORDERED: LEVALBUTEROL 1.25 MG/0.5 ML CONCENTRATE NEB INH PRN (17:00)
[2020-01-24] MEDS ORDERED: FUROSEMIDE 40MG/4ML VIAL (J1940) IV ONE (17:00)
[2020-01-24] MEDS ORDERED: IPRATROPIUM 0.5MG/ALBUTEROL 2.5MG INH SOL UD 3ML (DUONEB) NEB ONE (17:15)
--- NOTE | 2020-01-24 17:37 | REP ---
INDICATION: sob. COMPARISON: Comparison radiograph January 24, 2020 11:43 a.m. patient is status post left thoracentesis. TECHNIQUE: Portable upright AP chest radiograph. FINDINGS: There is a new pattern of alveolar parenchymal changes throughout the right lung and in the left inferior perihilar region. There is some blunting of the left lateral pleural angle again noted. There is no evidence of pneumothorax. Oxygen tubing is seen. Heart is not felt to be enlarged.. Advanced arthropathy is again noted in the shoulders. IMPRESSION: Pulmonary edema pattern right lung and left inferior perihilar region. Blunting of the left lateral pleural angle again noted. There is no evidence of pneumothorax.. <Electronically signed by Medhat Lopez > 01/24/20 [id number]
[2020-01-24 18:22] LABS: ABG BASE EXCESS -5.9 (-2.0-2.0); ABG HCO3 18.4 MEQ/L (22.0-26.0); ABG O2 SATURATION 89.7 % (95.0-99.0); ABG PARTIAL PRESSURE CO2 32.8 mmHg (35.0-45.0); ABG PARTIAL PRESSURE O2 56.5 mmHg (75.0-100.0); ABG STANDARD HCO3 19.5 MEQ/L (22.0-26.0); ABG TOTAL CO2 19.4 MEQ/L (23.0-31.0); ABG pH (ARTERIAL) 7.367 UNITS (7.350-7.450)
[2020-01-24] MEDS: IPRATROPIUM 0.5MG/ALBUTEROL 2.5MG INH SOL UD 3ML (DUONEB) NEB SCH ×2 (19:10→23:31)
--- NOTE | 2020-01-24 19:40 | REP ---
INDICATION: LEFT PLEURAL FLUID COMPARISON: None. TECHNIQUE: The procedure was performed by Cheri Moser [facility], under the direct supervision of Dr. Lopez The risks and benefits of the procedure were explained to the patient and an informed consent was obtained both verbally and written. Directly prior to the start of the procedure a formal time-out was completed in the procedure room. Pleural fluid in left lung zone was localized using ultrasound guidance. The skin was prepped and draped in a sterile fashion. Five ML of buffered lidocaine was used as a local anesthetic. Using ultrasound guidance an 8-Greek multi side-hole catheter was inserted using trocar technique. FINDINGS: One thousand eight hundred mL of yellow colored fluid was withdrawn and sent to the laboratory for further analysis. The patient tolerated the procedure well and there were no immediate complications. After the appropriate amount of monitored convalescence, the patient was discharged from the department. IMPRESSION: Ultrasound-guided thoracentesis of the left chest, with removal of 1800 mL of pleural fluid. <Electronically signed by Cheri Moser > 01/24/20 [id number] <Electronically signed by Medhat Lopez > 01/24/20 [id number]
--- NOTE | 2020-01-24 19:46 | IPN ---
PROGRESS NOTE DATE: 01/24/2020 SUBJECTIVE: Mr. Mireles was on an emergency basis for acute respiratory distress. Dr. Ware rounded on him today and evaluated him this evening for increasing shortness of breath. The patient became abruptly dyspneic around 5:30 PM, and I went to see him and evaluate him at the bedside. 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 He underwent a thoracentesis today; 1,800 mL of fluid was withdrawn. He has been increasingly dyspneic, tachycardic and hypotensive since then. He presented for admission last night with acute renal failure. His creatinine was 5.3 with a baseline creatinine around 1.7. He also has protein calorie malnutrition with a cumulative 1.8. PHYSICAL EXAMINATION: VITAL SIGNS: On evaluation his blood pressure is 90/48, pulse is 130, respiratory rate is around 24, his 02 saturation was 86% on a non-rebreather. GENERAL APPEARANCE: He looks chronically ill and is dyspneic. LUNGS: Rales to the apices bilaterally, more apparent on the left than the right. HEART: Tachycardic, regular rate and rhythm. ABDOMEN: Ascites. There is trace peripheral edema. IMAGING: Chest x-ray shows acute pulmonary edema. The right lung is changed from previous chest x-ray of 5 hours earlier. IMPRESSION: 1. Acute renal failure suspect acute pulmonary edema, probably reexpansion after thoracentesis. He was given 40 multifactorial of Lasix intravenously but with a creatinine of 5.3, he probably needs more aggressive diuresis than that. Unfortunately his systolic pressure is only 90-100 which limits current therapy. The patient is being transferred stat to the Intensive Care Unit. I discussed the case with Dr. Levine, who is control system manager for critical care. Stat ABG, CBC, BMP have been ordered. Nebulized bronchodilator has been ordered. The patient is DNR with a trial of intubation. 2. Acute renal failure superimposed on stage 3 chronic kidney disease stat repeat BMP has been ordered. Consultation obtained from Nephrology. Case was discussed with Dr. Mcdonald. He will see the patient in consultation. 3. Metastatic adenocarcinoma, unknown primary I have reviewed his pathology. Multiple primaries possible including pancreatic gastrointestinal or pulmonary. Prognosis is poor. He is followed by [facility]. Dr. Easton is his current Oncologist. 4. History of pulmonary embolism I am holding his Eliquis until his current situation clarifies. We need to see what his renal function is before restarting this. 5. Prognosis is poor due to multiple underlying medical problems and acute deterioration. The patient will be signed out to the nighttime Hospitalist for reevaluation
[2020-01-24 20:26] LABS: HEMATOCRIT 38.2 % (42.0-52.0); HEMOGLOBIN 12.2 g/dl (13.5-17.5); MEAN CORPUSCULAR HEMOGLOBIN 28.4 pg (27.0-33.0); MEAN CORPUSCULAR HGB CONC 31.9 g/dl (32.0-36.5); PLATELET COUNT, AUTOMATED 403 10^3/uL (150-450); RED BLOOD COUNT 4.29 10^6/uL (4.30-6.10); WHITE BLOOD COUNT 4.4 10^3/uL (4.0-10.0)
--- NOTE | 2020-01-24 20:29 | IPNPDOC ---
Text Note Date of Service The patient was seen on 01/24/20 at 2015. NOTE I received a call from Dr. Levine to discuss Mr. Mireles. He is concerned that some of his current respiratory symptoms may be related to a DVT and/or PE. Interestingly, Mr. Mireles came in on apixaban. I initially ordered at as part of his home medications, but the pharmacist questioned this as his creatinine clearance has dropped so low. I agreed to hold it for this reason. Unfortunately, we are still in the same position with regards to his renal function, but are looking at reasons to anticoagulate him again. Additionally, a DOAC may not be the best option given we are concerned about hypercoagulability of malignancy. Warfarin is probably too slow, both to get to therapeutic and to reverse if he needs a significant procedure or has a severe complication. This leaves us with renally dosed Lovenox. I confirmed with pharmacy that the appropriate full treatment dose for him is 80mg SC daily and ordered this. VS,Fishbone, I+O VS, Fishbone, I+O Laboratory Tests 01/24/20 02:30 01/24/20 13:48 Vital Signs Date Time Temp Pulse Resp B/P (MAP) Pulse Ox O2 Delivery O2 Flow Rate FiO2 01/24/20 19:00 96.4 128 20 95/69 (78) 87 NIPPV (BIPAP/CPAP) 100 01/24/20 17:45 15.0 Danial Jacinto MD Jan 24, 2020 20:29
[2020-01-24 20:37] LABS: INR 1.23; PARTIAL THROMBOPLASTIN TIME 27.7 SECONDS (24.2-38.5); PROTHROMBIN TIME 15.8 SECONDS (12.5-14.3)
[2020-01-24 20:54] LABS: CALCIUM LEVEL 7.9 MG/DL (8.8-10.2); CREATININE FOR GFR 5.69 MG/DL (0.70-1.30); GLOMERULAR FILTRATION RATE 10.2 (>35)
[2020-01-24 21:02] LABS: D-DIMER QUANT > 4000 ng/ml (<500)
--- NOTE | 2020-01-24 21:55 | REPVR ---
PROCEDURE INFORMATION: Exam: US Duplex Lower Extremity Veins, Bilateral Exam date and time: 01/24/2020 9:26 PM Age: 84 years old Clinical indication: Pain; Leg, lower; Left; Additional info: ? Dvt/pe TECHNIQUE: Imaging protocol: Real-time duplex ultrasound of the extremities with 2-D mccartney scale, color Doppler flow and spectral waveform analysis with image documentation. Complete exam focused on the bilateral lower extremity veins. COMPARISON: No relevant prior studies available. FINDINGS: Right deep veins: Unremarkable. The common femoral, femoral, proximal profunda femoral and popliteal veins are patent without thrombus. Normal Doppler waveforms. Normal compressibility and/or augmentation response. Right superficial veins: Saphenofemoral junction is patent without thrombus. Left deep veins: Unremarkable. The common femoral, femoral, proximal profunda femoral and popliteal veins are patent without thrombus. Normal Doppler waveforms. Normal compressibility and/or augmentation response. Left superficial veins: Saphenofemoral junction is patent without thrombus. Soft tissues: Unremarkable. IMPRESSION: No evidence of deep vein thrombosis. Electronically signed by: Yandel Tierney On 01/24/2020 21:55:31 PM
[2020-01-24] MEDS ORDERED: FUROSEMIDE 100MG/10ML VIAL (J1940) IV ONE (22:15)
[2020-01-24] MEDS: ENOXAPARIN 80MG/0.8ML SYRINGE (J1650 PER 10MG) SC SCH (22:36)
[2020-01-24] MEDS: NOREPINEPHRINE BITARTRATE 16 MG in D5W 484 ML IV SCH (22:37)
--- NOTE | 2020-01-24 22:53 | REPVR ---
PROCEDURE INFORMATION: Exam: XR Chest, 1 View Exam date and time: 01/24/2020 10:10 PM Age: 84 years old Clinical indication: Other vascular access device placement or adjustment; Central line, non-tunnelled; Additional info: Central line placement TECHNIQUE: Imaging protocol: XR of the chest Views: 1 view. COMPARISON: TX PORTABLE CHEST X-RAY 01/24/2020 5:14 PM FINDINGS: Lungs: Persistent bibasilar airspace disease, not significantly changed. Pleural space: No pneumothorax. Probable small left pleural effusion. Heart/Mediastinum: Unremarkable. No cardiomegaly. Vasculature: Right subclavian central venous line projects at the atrial caval junction. Bones/joints: Skeletal degenerative changes are noted. IMPRESSION: 1. Right subclavian line projects at the atrial caval junction. No pneumothorax. 2. Persistent bilateral airspace disease and small left pleural effusion. Electronically signed by: Yandel Tierney On 01/24/2020 22:52:45 PM
[2020-01-25] VITALS (119 sets, daily range): BP systolic 78–150; BP diastolic 49–85
[2020-01-25] MEDS: IPRATROPIUM 0.5MG/ALBUTEROL 2.5MG INH SOL UD 3ML (DUONEB) NEB SCH ×4 (03:50→23:00)
[2020-01-25 05:10] LABS: ALBUMIN 1.6 GM/DL (3.2-5.2); ALT/SGPT 15 U/L (12-78); BILIRUBIN,TOTAL 0.5 MG/DL (0.2-1.0); BLOOD UREA NITROGEN 73 MG/DL (7-18); CALCIUM LEVEL 7.3 MG/DL (8.8-10.2); CARBON DIOXIDE LEVEL 21 MEQ/L (21-32); CHLORIDE LEVEL 101 MEQ/L (98-107); CHOLESTEROL LEVEL 131 MG/DL (< 200); CPK CREATINE PHOSPHOKINASE 96 U/L (39-308); CREATININE FOR GFR 5.76 MG/DL (0.70-1.30); FREE T3 < 0.5 PG/ML (2.2-4.0); FREE T4 0.35 NG/DL (0.76-1.46); GLOMERULAR FILTRATION RATE 10.1 (>35); GLUCOSE, FASTING 119 MG/DL (70-100); LDH LACTATE DEHYDROGENASE 582 U/L (87-241); PHOSPHORUS LEVEL 6.1 MG/DL (2.5-4.9); POTASSIUM SERUM 5.2 MEQ/L (3.5-5.1); SODIUM LEVEL 134 MEQ/L (136-145); TOTAL PROTEIN 5.3 GM/DL (6.4-8.2); TRIGLYCERIDES LEVEL 140 MG/DL (<150)
--- NOTE | 2020-01-25 05:33 | ECGEPIP ---
[facility] - ED Test Date: 2020-01-24 Pat Name: ANYA SEALS Department: Room: [place] [address] Gender: Male Pharmacy Clerk: [facility] : 1935 Requested By: DANTE Galvin Order Number: [id number] Reading MD: Mark Latham Measurements Intervals [place] Rate: 90 P: 32 [place]: 140 QRS: 41 QRSD: 117 T: -9 QT: 330 QTc: 404 Interpretive Statements SINUS RHYTHM INCOMPLETE RIGHT BUNDLE BRANCH BLOCK POOR R WAVE PROGRESSION SIMILAR TO 12/30/19 Electronically Signed on 01-25-2020 5:33:11 EST by Mark Latham
[2020-01-25 06:38] LABS: ABG BASE EXCESS -4.2 (-2.0-2.0); ABG HCO3 20.9 MEQ/L (22.0-26.0); ABG O2 SATURATION 96.6 % (95.0-99.0); ABG PARTIAL PRESSURE CO2 38.3 mmHg (35.0-45.0); ABG PARTIAL PRESSURE O2 85.3 mmHg (75.0-100.0); ABG pH (ARTERIAL) 7.354 UNITS (7.350-7.450)
[2020-01-25 07:43] LABS: HEMATOCRIT 35.6 % (42.0-52.0); HEMOGLOBIN 11.5 g/dl (13.5-17.5); MEAN CORPUSCULAR HEMOGLOBIN 28.8 pg (27.0-33.0); MEAN CORPUSCULAR HGB CONC 32.3 g/dl (32.0-36.5); PLATELET COUNT, AUTOMATED 393 10^3/uL (150-450)
--- NOTE | 2020-01-25 08:03 | REP ---
INDICATION: pulm edema. COMPARISON: Multiple views on 01/24/2020. TECHNIQUE: Single AP view of the chest performed portably with the patient upright. FINDINGS: According to the phone follow up patient underwent left thoracentesis on 01/24/2020. Additionally the patient had a central line placed on 01/24/2020. There are bibasilar infiltrates, not significantly changed. The left pleural effusion has significantly decreased, however, there is persistent increased density in the left costophrenic angle suggesting there may be a small volume of persisting left pleural effusion. There is a right subclavian central venous catheter with the tip in the right atrium in satisfactory position, unchanged. There is no right pneumothorax or hemothorax. Cardiac size is normal. The checo are obscured by superimposed infiltrates. The mediastinum is unremarkable. 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 IMPRESSION: Bibasilar infiltrates. Probable persisting small volume of left pleural fluid. Right subclavian central venous catheter. No right pneumothorax or hemothorax. Bilateral shoulder osteoarthritis. <Electronically signed by Porter Khalil > 01/25/20 0750
--- NOTE | 2020-01-25 08:25 | CCN ---
CRITICAL CARE NOTE DATE: 01/24/2020 SUBJECTIVE: I was called to see this 84-year-old male for hypoxemic respiratory failure admitted about 24 hours ago for an altered level of consciousness. He has a history of metastatic cancer. He had a pleural drainage procedure today and was found to be in acute renal failure with a creatinine of 5.3. His past medical history includes hypertension and metastatic carcinomatosis of the mesentery, adenocarcinoma of unknown primary. OBJECTIVE: GENERAL APPEARANCE: At bedside, he is ill-appearing and tachypneic. VITAL SIGNS: His temperature is 97.9, pulse rate 105, respirations 22, blood pressure 90/48. HEENT: Oral and nasal mucosa are pink. His neck is supple. Trachea is in the midline. There is no stridor. HEART: Sounds are regular. LUNGS: Rapid breath sounds, diminished with crepitants rales bilaterally. CHEST: Symmetric. ABDOMEN: Soft and somewhat distended. EXTREMITIES: Cool. Pulses diminished. DIAGNOSTIC STUDIES: His white cell count is 10.9, hemoglobin 11.3, hematocrit 35.4, platelet count 390,000 from labs done at 2:30 this morning. His electrolytes are sodium 133, potassium 5.3, chloride 98, CO2 of 25, BUN 71, creatinine 5.33, glucose 98, calcium 7.7, bilirubin 0.3, AST 47, ALT 16. LDH was elevated at 556. His albumin is 1.8. Troponin was less than 0.06. His TSH was 25. Ammonia was less than 10. Lactic acid was 1. Arterial blood gases show a pH of 7.36, pCO2 of 32, pO2 of 56, sat 89% on 100% oxygen. PT 16, PTT 30, INR 1.29. The pleural fluid was exudative. Chest x-ray shows improvement in the left effusion and interstitial edema on the right. Formal report is pending. accountant shows sinus tachycardia with PVCs. ASSESSMENT AND PLAN: The primarily problem requiring critical attention is acute hypoxic respiratory failure of unclear etiology. Recent testing would suggest otherwise, but I would repeat his COVID study given the rapid onset of hypoxemia and interstitial infiltrates on the x-ray. We will initiate noninvasive positive pressure ventilation and follow his gas exchange. Pulmonary edema: BNP has been ordered. This is either cardiogenic or noncardiogenic. We will also ask for an EKG to be performed. Carcinomatosis: This is an adenocarcinoma of unknown primary. He has had no treatment thus far. Prognosis is poor. Acute kidney failure: I agree with involving nephrology for assistance with optimal management. I have discussed the case with the attending physician and the intensive care unit (ICU) team. We will facilitate transfer now to the intensive care unit for noninvasive ventilation. The patient's condition is critical. Prognosis is guarded. One hour and 16 minutes was spent in the provision of bedside critical care and coordination excluding any procedure time. OLIVER
[2020-01-25 08:28] LABS: LYMPHOCYTES 2 % (16-44); MONOCYTES 2 % (0-5); NEUTROPHILS 83 % (28-66); TOXIC GRANULATION 1+
[2020-01-25 08:29] LABS: ANISOCYTOSIS 1+; PLATELET ESTIMATE NORMAL (NORMAL)
[2020-01-25] MEDS: MIRALAX *UNIT DOSE* 17GM PACKET PO SCH (08:47)
[2020-01-25] MEDS: MULTIVITAMINS/MINERALS THERAP 1 TAB PO SCH (08:48)
[2020-01-25] MEDS: ASCORBIC ACID 500 MG TAB PO SCH (08:48)
[2020-01-25] MEDS: OMEPRAZOLE 20 MG CAP PO SCH ×2 (08:48→20:26)
[2020-01-25] MEDS ORDERED: SODIUM CHLORIDE 0.9% INJ 10 ML SYR IV PRN (12:00)
--- NOTE | 2020-01-25 13:07 | IPNPDOC ---
Text Note Date of Service The patient was seen on 01/25/20. NOTE Patient was seen and examined this morning in the ICU. The patient had a sudden deterioration yesterday. He became acutely short of breath with bibasilar crackles and is requiring BiPAP at this time. The patient also became slightly hypotensive last night and has been put on Levophed at a very minimal dose. The patient continues to have very low urine output and after consultation with nephrology. The patient probably will be started on CRRT today. Physical examination GENERAL APPEARANCE: Laying flat in bed awake, on BiPAP in no apparent distress HEENT: Normocephalic, atraumatic, symmetric, EOMI, PERRLA, mucous membranes moist. CARDIOVASCULAR: Regular rate and rhythm without appreciable murmur/ rub or gallop LUNGS: Lung sounds diminished in the bases bilaterally, more so on the left than the right. Otherwise good air movement with symmetric chest rise. No appreciable wheezing or rhonchi ABDOMEN: Distended, round, fluid thrill present. No guarding no rigidity. MUSCULOSKELETAL: Patient is able to move all extremities equally bilaterally EXTREMITIES: No edema No calf tenderness NEUROLOGICAL: Strength 5 out of 5 in upper and lower extremities. No facial droop, aphasia or dysarthria. Sensorium intact PSYCHIATRIC: Mood and affect are appropriate given patient's current medical conditions. Labs: Reviewed Radiology : Reviewed. Assessment and plan Patient is an 84-year-old male, past medical history significant for recently diagnosed metastatic disease of unknown primary source with omental and mesenteric deposits with Ascites. He presented to the emergency department the evening on 01/23/20 with alteration in mental status. As per him, he took his p ain medication, oxycodone, and after that was confused and as per his was talking to somebody which was not even in the room. On my encounter. He states that he does not remember anything like that. He has been following up with hematology oncology and they have scheduled port placement and the workup for the primary. He got a CT scan of the head which showed no acute pathology and an x-ray of the lungs showed increasing effusion in the left lung which has been more than noticed previously. He also has a distended abdomen with a fluid thrill. He was also found to have in acute kidney injury with a creatinine of 5.3 and potassium of 5.3 Currently. . He had sudden deterioration last night where he became more hypoxic with possible picture of pulmonary edema likely secondary to fluid resuscitation in view of oliguria/anurea. . Currently, he has been on BiPAP and has been transferred to ICU. Because of his worsening renal function without any improvement. Nephrology has been consulted and he will be started on CRRT. He also has a low blood pressures for which she has been put on Levophed. He does not look septic or there is no other sign of infection and for that reason. No antibiotics have been started. There could be a possibility of adrenal insufficiency as the patient has multiple metastatic disease, which could have involved a detailed and for that reason, the patient will be getting a random cortisol as well as a.m. cortisol. I'm going to start him on hydrocortisone 50 every 8 hours. 1. Alteration in mental status. Under evaluation could be multifactorial right earache related to uremia because of AK I with a creatinine of 5.3 and polypharmacy with oxycodone. CT scan of the head is negative other metabolic causes have been ruled out. Infectious workup has been started. We will address individual cause. 2. Acute kidney injury. Worsening. The patient is not providing much history but states that he has been taking Aleve but does not quantify how much for the last couple of weeks. This could be a reason of his acute kidney injury. He got fluid resuscitation, but that led to pulmonary edema and for that reason, nephrology has been consulted and the patient has been started on CRRT given his low blood pressure. Input output monitoring. Avoid any nephrotoxic drugs. 3. Acute hypoxic respiratory failure. Likely secondary to fluid resuscitation, in view of all the urea/anurea. Nephrology has been consulted and they are planning for a CRRT today. Continue BiPAP and titrate according to the saturations. Pulmonary/salon receptionist service is already on board. 4. Hypotension. Troponins have been negative and most likely this is not a cardiogenic shock. The patient will be getting a 2-D echo as well. The patient continues to be on Levophed. Given his metastatic disease. This could be adrenal insufficiency and for that reason, the patient will be getting a random cortisol as well as 8 AM cortisol. A stress dose of hydrocortisone will be given to him and if the random cortisol is normal, then we can discontinue his hydrocortisone. No other obvious reason of hypotension is seen. The patient does not seem any signs of sepsis. He does have ascites but the abdomen is nontender and the likelihood of SBP is very low. In any case, once he is hemodynamically stable. The patient would benefit from a paracentesis to rule out SBP. 5. Metastatic cancer with Omental/Peritoneal Mets, unknown primary : There were malignant cells in the ascites however immunohistochemistry could not make a definitive diagnosis from the cells due to the paucity of the cells. . He has a Dr. Easton as a his oncologist and will follow up with him once ACUTE issues are resolved. 6. Recurrent pleural effusions. He has a large left-sided pleural effusion. Patient had a thoracocentesis on 01/24/20 1800 mL was drained from the left side. Continue monitoring. The patient has transited effusion last time. Fluid analysis has been sent for this effusion. 7. Hyperkalemia. Related to acute kidney injury. We will hold any nephrotoxic drugs and monitor. CRRT has been started. Nephrology following. 8. Ascites. Likely secondary to omental and peritoneal metastasis. We will get paracentesis if required. 9. Esophageal stenosis : S/P endoscopic evaluation on 12/[address] Kern. Biopsy did not show any malignancy . Continue PPI 10. Duodenal ulcer and erossive gastropathy seen in EGD on 12/28/19. Duodenal mucosa with extensive ulceration and reparative changes. Negative for malignancy. Continue PPI DVT PROPHYLAXIS:: Lovenox CODE STATUS: Patient confirms DNR/trial of intubation VS,Fishbone, I+O VS, Fishbone, I+O Laboratory Tests 01/24/20 13:48 01/24/20 20:13 01/25/20 03:59 Vital Signs Date Time Temp Pulse Resp B/P (MAP) Pulse Ox O2 Delivery O2 Flow Rate FiO2 01/25/20 09:00 101 20 95/55 (68) 88 Nasal Cannula 5.0 01/25/20 08:00 98.3 01/25/20 06:00 100 I&O- Last 24 Hours up to 6 AM 01/25/20 06:00 Intake Total 781 ml Output Total 625 ml Balance 156 ml JOSIAS GUY MD Jan 25, 2020 13:07
--- NOTE | 2020-01-25 15:26 | CCN ---
CRITICAL CARE NOTE DATE: 01/25/2020 The patient is seen in the intensive care unit on non-invasive ventilation, required Levophed for hypotension late in the night, his oxygen saturations have improved slightly. At bedside, his temperature is 97, pulse rate 92, respirations 27, blood pressure 101/62 on Levophed. Intake and output for the past 24 hours: 643 in, 390 out, since midnight 138 in, 235 out. He is awake and interactive, ill-appearing, cachectic. Oral mucosa is dry. Neck is supple, no meningismus. Heart sounds are regular, somewhat distant. Breath sounds diminished bilaterally, coarse rales are appreciated. Abdomen is soft and the extremities are cool, pulses are diminished. DIAGNOSTIC STUDIES: White cell count is up at 11, hemoglobin 11.5, hematocrit 35.6, platelet count 393,000. Differential white cell count shows 83% neutrophils and 13% bands. Electrolytes are sodium 134, potassium is up to 5.2, chloride 101, CO2 21, BUN 73, creatinine 5.76, glucose 119, calcium 7.3, phosphorous 6.1, AST 43, ALT 15, his LDH is 582, brain natriuretic peptide 11,000, albumin 1.6. Arterial blood gases showed a pH of 7.35, pCO2 38, pO2 85 on non-invasive ventilation, 100% oxygen. His PT is 15, PTT 27, D-dimer greater than 4000. Chest imaging shows a right-sided infiltrate and decreased left effusion. COVID testing was negative. The primary problems requiring critical attention is: 1. Acute hypoxic respiratory failure. The patient has responded to non-invasive ventilation. The etiology of his abrupt change is unclear, it occurred shortly after drainage of his left pleural effusion. COVID testing was negative. Ultrasound studies of his legs are negative, however his risk for pulmonary embolism is quite high with diffuse malignancy and I agree with full-dose Lovenox. 2. Shock. The patient is responding to Levophed at mid-dose. We are targeting a mean arterial pressure of 65. 3. Congestive heart failure. Brain natriuretic peptide of 11,000. The patient had no response to high doses of Lasix. We are awaiting nephrology's consultation. 4. Acute kidney injury. Creatinine is very elevated and he has had little urine output. Await nephrology consultation. 5. Metastatic adenocarcinoma with diffuse mesenteric metastases. The patient is aware of the overall poor prognosis. The patient's condition is critical. Prognosis is guarded. 1 hour and 15 minutes was spent in the provision of bedside critical care and coordination excluding procedure time. OLIVER
[2020-01-25] MEDS: LEVOTHYROXINE 50MCG TABLET (0.05MG) PO SCH (15:31)
[2020-01-25] MEDS: HYDROCORTISONE 100 MG/2 ML VIAL (J1720 PER 1) IV SCH ×2 (15:31→22:10)
[2020-01-25 18:17] LABS: HEMATOCRIT 34.4 % (42.0-52.0); MEAN CORPUSCULAR HEMOGLOBIN 28.4 pg (27.0-33.0); MEAN CORPUSCULAR VOLUME 88.9 fl (80.0-96.0); PLATELET COUNT, AUTOMATED 331 10^3/uL (150-450); RED BLOOD COUNT 3.87 10^6/uL (4.30-6.10); WHITE BLOOD COUNT 19.7 10^3/uL (4.0-10.0)
[2020-01-25 18:31] LABS: MAGNESIUM LEVEL 1.6 MG/DL (1.8-2.4); PHOSPHORUS LEVEL 4.6 MG/DL (2.5-4.9)
[2020-01-25 18:32] LABS: CALCIUM LEVEL 7.7 MG/DL (8.8-10.2); CREATININE FOR GFR 4.51 MG/DL (0.70-1.30); GLOMERULAR FILTRATION RATE 13.4 (>35); POTASSIUM SERUM 4.7 MEQ/L (3.5-5.1)
[2020-01-25] MEDS: MAG SULF 1GM/100ML (MAG RUN) 1 GM in IV 1 EA IV SCH ×2 (19:12→20:26)
--- NOTE | 2020-01-25 19:28 | RO ---
OPERATIVE NOTE DATE OF OPERATION: 01/25/2020 INDICATIONS FOR PROCEDURE: Acute renal failure and respiratory failure. PROCEDURE: Right femoral vein hemodialysis catheter placement. PREPROCEDURE DIAGNOSES: 1. Acute renal failure. 2. Respiratory failure. POSTPROCEDURE DIAGNOSES: 1. Acute renal failure. 2. Respiratory failure. SURGEON: Prasanth Mcdonald MD ANESTHESIA: 1% Lidocaine for local anesthesia. DESCRIPTION OF PROCEDURE: The patient has oliguric acute renal failure and respiratory failure. He is currently on pressors and is in need for urgent dialysis. Procedure was explained to the patient and informed consent obtained. All of his questions were answered. The right femoral area is shaved, cleaned, and prepped in the usual sterile fashion. 1% Lidocaine used for local anesthesia. Right femoral vein accessed without any difficulty with first attempt and guidewire advanced without any problem. The needle was removed and a small incision made at the site of the guidewire. The skin and soft tissue were dilated with the skin dilator. Double lumen hemodialysis catheter placed over the guidewire without any difficulty and good venous blood return obtained from both ports. Catheter sutured in site and dressing applied. The patient tolerated the procedure very well. Estimated blood loss was about 7 mL. There were no immediate complications.
[2020-01-25] MEDS: ENOXAPARIN 80MG/0.8ML SYRINGE (J1650 PER 10MG) SC SCH (20:27)
[2020-01-25] MEDS: CALCIUM GLUCONATE 1,000 MG, VIAL MATE ADAPTER 1 EACH in NS 100 ML IV SCH ×2 (21:23→22:53)
--- NOTE | 2020-01-25 21:43 | CR ---
NEPHROLOGY CONSULTATION DATE: 01/25/2020 REQUESTING PHYSICIAN: Paul Lancaster M.D. REASON FOR CONSULTATION: Acute renal failure. HISTORY OF PRESENT ILLNESS: Mr. Mireles is an 84-year-old gentleman with a known history of metastatic cancer without primary known. He has carcinomatosis with abdominal distention and also had a large left pleural effusion. He was admitted to [facility] on January 23 due to hallucinations and was found to have acute renal failure with serum creatinine of about 5 while his baseline creatinine has been about 1.0. Hospitalist Service initially tried hydration as it was felt that the patient may have dehydration causing acute renal failure. The patient had a left pleuracentesis done and 1,800 mL fluid was removed following which he developed worsening dyspnea and a chest x-ray showed alveolar fluid. He had acute pulmonary edema following pleuracentesis due to which he has been placed on BIPAP. The patient also has now developed oliguric acute renal failure. A Nephrology consultation was requested last evening and the patient is seen this morning at his bedside. PAST MEDICAL HISTORY: The patient's past medical history is significant for: 1. Metastatic cancer without known of his primary cancer site. 2. History of pulmonary embolism - currently on Eliquis. 3. History of esophageal stricture. 4. Hypertension. 5. History of right hip osteoarthritis. PAST SURGICAL HISTORY: The patient's past surgical history is significant for: 1. Colon polypectomy. 2. Bilateral cataract surgery. 3. Right total hip replacement. 4. Bilateral carpal tunnel release. 5. Laparoscopy with biopsy of peritoneal tumor in December 2019. HOME MEDICATIONS: His home medications include: 1. Eliquis 5 mg twice daily. 2. Vitamin C 500 mg twice daily. 3. Furosemide 40 mg daily. 4. Multivitamin one tablet daily. 5. Omeprazole 40 mg twice daily. 6. Miralax 17 grams daily. 7. He also uses Oxycodone as needed for pain 8. Zofran 4 mg as needed for nausea. ALLERGIES: He has no known drug allergies. PERSONAL & SOCIAL HISTORY: The patient is and lives with his . He currently does not smoke. There is no history of alcohol or drug use. FAMILY HISTORY: Father had lung cancer. Mother with colon cancer. REVIEW OF SYSTEMS: The patient is currently on BIPAP and still able to talk. Apparently he had hallucinations that were the cause of his admission. No fever or chills reported. There is no history of headache, recent stroke, ear, nose or throat problems. Cardiovascular system is significant for sudden pulmonary edema following left thoracentesis requiring BIPAP. Respiratory system significant for left pleural effusion, status post thoracentesis and prior history of pulmonary embolism. GI system is negative for vomiting or diarrhea. He has carcinomatosis with abdominal ascites. Genitourinary system is significant for minimal urine output. He currently has a Ceja catheter in place. Endocrine system negative for diabetes or thyroid problems. Hematological system is significant for anemia. Psychosocial system is significant for hallucinations without any prior history of psych problems. Musculoskeletal system is negative for any leg edema. He does have degenerative arthritis. PHYSICAL EXAMINATION: GENERAL APPEARANCE: This is an elderly gentleman who is currently on BIPAP. VITAL SIGNS: Temperature is 98.3 degrees Fahrenheit, heart rate about 100 per minute, and respiratory rate 20 per minute, blood pressure 108/59 mm of mercury and oxygen saturation about 90%. HEENT: Head is atraumatic. He is currently on the BIPAP and I did not remove the mask. NECK: Veins are difficult to be assessed. HEART: Tachycardic. LUNGS: Bibasilar rales. ABDOMEN: Distended with ascites and bowel sounds are present. EXTREMITIES: Without any cyanosis or clubbing. NEUROLOGICALLY: The patient is awake and able to answer questions. He has no focal neurological deficits. LABORATORY DATA: Today's labs show a WBC count 11.0, hemoglobin 11.5 and hematocrit 35.6, platelets 393. Sodium 134, potassium 5.2, CO2 21, BUN 73 and creatinine 5.76, glucose 119 and calcium 7.3. A BNP level was 11,005 yesterday evening. TSH level 17.7 and free T-4 0.35. Free T-3 is less than 0.05. Urinalysis showed only 1+ protein and 1+ blood with 6 WBCs and 4 RBCs. PROBLEMS: 1. Acute renal failure - The patient had a serum creatinine of 1.0 back in December 2019. Acute renal failure is of uncertain etiology. At this point he is oliguric and has a Ceja catheter in place. He was given IV fluids, however he went into pulmonary edema following thoracentesis. At this point we would not want to give him IV fluids, and we will arrange urgent dialysis. I have discussed with the patient about the potential need for dialysis, and he has consented for it. He has also consented for dialysis catheter placement. 2. Respiratory failure this related to acute pulmonary edema. I would recommend a CT scan of the chest with IV contrast in view of his history of carcinomatosis. 3. He remains on BIPAP. We will try to remove some fluid with CRRT if he could tolerate. 4. Hypotension - The patient is hypotensive and currently on a low dose of Levophed. I would recommend broad spectrum antibiotic coverage for possible bacteremia. 5. Hyperkalemia The patient has mild hyperkalemia which will be corrected with CRRT. PLAN: I have explained to the patient about his prognosis and he understands that he has metastatic cancer and now has acute renal failure requiring dialysis. He did consent and wish to get everything done for now. We will make arrangements for CRRT which will be started within the next few hours. I have answered all his questions. Thank you for involving me in the care of Mr. Mireles. Our Nephrology Service will follow him along with you.
[2020-01-25] MEDS: NOREPINEPHRINE BITARTRATE 16 MG in D5W 484 ML IV SCH (22:00)
[2020-01-25] MEDS: DIGOXIN INJ 0.5 MG/2 ML AMP (J1160) IV SCH (23:42)
[2020-01-26] VITALS (94 sets, daily range): BP systolic 74–126; BP diastolic 48–87
[2020-01-26 00:17] LABS: POTASSIUM SERUM 4.4 MEQ/L (3.5-5.1); TROPONIN I < 0.02 NG/ML (< 0.10)
[2020-01-26] MEDS: DIGOXIN INJ 0.5 MG/2 ML AMP (J1160) IV SCH (01:44)
[2020-01-26] MEDS: IPRATROPIUM 0.5MG/ALBUTEROL 2.5MG INH SOL UD 3ML (DUONEB) NEB SCH ×2 (03:48→07:48)
[2020-01-26 05:18] LABS: HEMATOCRIT 34.6 % (42.0-52.0); HEMOGLOBIN 11.4 g/dl (13.5-17.5); MEAN CORPUSCULAR HEMOGLOBIN 29.5 pg (27.0-33.0); MEAN CORPUSCULAR HGB CONC 32.9 g/dl (32.0-36.5); MEAN CORPUSCULAR VOLUME 89.4 fl (80.0-96.0); PLATELET COUNT, AUTOMATED 325 10^3/uL (150-450); RED BLOOD COUNT 3.87 10^6/uL (4.30-6.10); WHITE BLOOD COUNT 20.7 10^3/uL (4.0-10.0)
[2020-01-26 05:45] LABS: ALBUMIN 1.6 GM/DL (3.2-5.2); BILIRUBIN,TOTAL 0.4 MG/DL (0.2-1.0); CALCIUM LEVEL 8.2 MG/DL (8.8-10.2); CREATININE FOR GFR 2.51 MG/DL (0.70-1.30); GLOMERULAR FILTRATION RATE 26.3 (>35); PHOSPHORUS LEVEL 3.3 MG/DL (2.5-4.9); POTASSIUM SERUM 4.3 MEQ/L (3.5-5.1); TOTAL PROTEIN 5.3 GM/DL (6.4-8.2)
[2020-01-26 06:00] LABS: LYMPHOCYTES 2 % (16-44); MONOCYTES 3 % (0-5); NEUTROPHILS 92 % (28-66); PLATELET ESTIMATE NORMAL (NORMAL)
[2020-01-26 06:01] LABS: ANISOCYTOSIS 1+
[2020-01-26] MEDS ORDERED: CALCIUM GLUCONATE 1,000 MG in NS 100 ML IV ONE (07:00)
[2020-01-26] MEDS: HYDROCORTISONE 100 MG/2 ML VIAL (J1720 PER 1) IV SCH ×3 (07:02→22:09)
[2020-01-26] MEDS: LEVOTHYROXINE 50MCG TABLET (0.05MG) PO SCH (07:02)
--- NOTE | 2020-01-26 07:38 | REP ---
INDICATION: pulm edema. COMPARISON: Portable chest dated 01/25/2020. TECHNIQUE: Single AP view performed portably with the patient sitting. FINDINGS: The bibasilar infiltrates are not quite as dense as previously. There is focal discoid atelectasis inferiorly in the left lung. No pleural effusions are identified. There is a right subclavian central venous catheter with the tip in the superior vena cava in satisfactory position, unchanged. IMPRESSION: The bibasilar infiltrates are less dense than on the previous study. <Electronically signed by Porter Khalil > 01/26/20 0735
--- NOTE | 2020-01-26 08:21 | ECGEPIP ---
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 RIGHT BUNDLE BRANCH BLOCK Faster rate but no other change from 01/24/20 Electronically Signed on 01-26-2020 8:21:40 EST by Ezio Olea
--- NOTE | 2020-01-26 08:25 | ECGEPIP ---
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
[2020-01-26] MEDS: OMEPRAZOLE 20 MG CAP PO SCH ×2 (09:16→20:23)
[2020-01-26] MEDS: MIRALAX *UNIT DOSE* 17GM PACKET PO SCH (09:16)
[2020-01-26] MEDS: MULTIVITAMINS/MINERALS THERAP 1 TAB PO SCH (09:16)
[2020-01-26] MEDS: ASCORBIC ACID 500 MG TAB PO SCH (09:16)
[2020-01-26] MEDS ORDERED: DIGOXIN INJ 0.5 MG/2 ML AMP (J1160) IV ONE (10:45)
--- NOTE | 2020-01-26 10:49 | ECHO ---
DATE OF PROCEDURE: 01/25/2020 Age: 84 Gender: Male Height: 175 cm Weight: 83 kg REFERRING PHYSICIAN: Danial Jacinto M.D. and Frederic Ware M.D. INDICATION: Dyspnea. MEASUREMENTS: IVS 1.0 cm LV 4.6 cm LVPW 1.9 cm LA 4.9 cm Aorta 3.7 cm IVC 1.4 cm Mitral E wave velocity 58 cm/s Mitral A wave 100 cm/s E prime septal 7.1 cm/s E prime lateral 11.6 cm/s FINDINGS: This study is of fair technical quality with somewhat challenging visualization. Underlying sinus rhythm. Normal LV size with overall preserved left ventricular systolic function, estimated LVEF around 60% to 65%. I certainly cannot rule out subtle wall motion abnormalities. Left ventricle is also normal size and systolic function. The left atrium appears borderline enlarged. Right atrium is normal size. Aortic valve is tricuspid. It has preserved mobility and minimal sclerotic abnormalities. On some views, I cannot completely rule out the presence of small echodensities on the valve and in the appropriate clinical setting, would even consider the possibility of vegetation. Mitral and tricuspid valves appear normal. The pulmonic valve was not well seen. No pericardial effusion is noted. Inferior vena cava is normal size. Aortic root is normal. Aortic arch and abdominal aorta were not seen. Doppler interrogation of the aortic valve reveals no insufficiency and trivial stenosis with mean gradient 6 mmHg. There is trace mitral insufficiency. Tricuspid valve is functionally competent. Mitral inflow pattern and tissue Doppler imaging of the mitral annulus revealed grade 1 diastolic dysfunction. CONCLUSIONS: 1. Study is of fair technical quality, underlying sinus rhythm. 2. Normal LV size with preserved LV systolic function and grade 1 diastolic dysfunction. 3. Sclerotic abnormalities of aortic valve with trivial stenosis and no insufficiency. There are irregularities on poorly visualized valve, in appropriate clinical setting would consider the possibility of vegetation. 4. Trace mitral insufficiency. 5. Normal central venous pressure and normal pulmonary artery pressure. COMMENTS: No obvious findings to explain shortness of breath. [facility]
[2020-01-26] MEDS: cefoTEtan DISODIUM 1 GM in D5W MINI-BAG PLUS 50 ML IV SCH ×2 (11:42→22:09)
--- NOTE | 2020-01-26 12:28 | IPN ---
CRITICAL CARE NOTE DATE: 01/26/2020 SUBJECTIVE: Mr. Mireles is seen this morning in the Intensive Care Unit on his bedside. Yesterday, we started CRRT due to hypotension, acute renal failure and volume overload. CRRT is still in progress on his bedside. Patient is feeling better today and he is off BiPAP now. He reports that he slept well last night without BiPAP. He is still not making much urine and currently he is off his Levophed. The nursing staff reports that after receiving his Albuterol nebulizer he became very tachycardic with a heart rate up to 159. He is still tachycardic on the monitor but denies any chest pain. His appetite is poor and not eating well. He has a known history of metastatic cancer with carcinomatosis and ascites without a primary source known. PHYSICAL EXAMINATION: VITAL SIGNS: Temperature is 97.4 degrees Fahrenheit, heart rate is 146 per minute and respiratory rate 20 per minute. Blood pressure is currently 118/88 mmHg and oxygen saturation is 90% on 5 liters oxygen. HEENT: Head is atraumatic. NECK: Supple and JVD is difficult to assess. HEART: Heart sounds are quite tachycardic. LUNGS: Bilateral rales, more on the left than the right. ABDOMEN: Distended with ascites. Bowel sounds are present. EXTREMITIES: Without any cyanosis or clubbing. Lower extremity edema is still 2+. NEUROLOGIC: He is awake, alert and at his baseline mentation. LABORATORY DATA: Today's labs showed a WBC count of 12.7, hemoglobin 11.4 and hematocrit 34.6. Platelets are 325,000. Sodium 138, potassium 4.3, CO2 26, BUN 34 and creatinine 2.51. Glucose 109, calcium 8.2. CPK 66, total protein 5.3 and albumin 1.6. PROBLEMS: 1. Oliguric acute renal failure. Patient is still oliguric with minimal urine output. He is on CRRT due to hypotension and volume overload. Will continue with the same and his CRRT orders are being renewed. 2. Hypotension. The source of his hypotension is unclear. He is just coming off Levophed, however he is quite tachycardic. I will defer any plan of care for his atrial fibrillation to Hospitalist and Cardiology. 3. Congestive heart failure. Volume status improved with CRRT and he is now off BiPAP. Will continue fluid removal, about 50 ml/hr as long as he can tolerate it. 4. Anemia. He has mild anemia which is stable and does not need any urgent intervention. 5. He has metastatic cancer with carcinomatosis. His prognosis remains poor due to multiorgan problems, advanced age, and primary source is not known. 6. Protein calorie malnutrition most likely related to advanced metastatic cancer and multiorgan problems. Patient should be encouraged for increased protein intake. 27 minutes of critical care time spent on bedside during which no procedures were performed. MTDD
[2020-01-26] MEDS ORDERED: LEVALBUTEROL 1.25 MG/0.5 ML CONCENTRATE NEB INH PRN (13:00)
[2020-01-26] MEDS ORDERED: AMIODARONE HCL 150 MG in IV 1 EA IV ONE (13:00)
[2020-01-26] MEDS ORDERED: AMIODARONE HCL 360 MG in IV 1 EA IV SCH (17:00)
[2020-01-26 18:36] LABS: HEMATOCRIT 36.8 % (42.0-52.0); HEMOGLOBIN 11.9 g/dl (13.5-17.5); MEAN CORPUSCULAR HEMOGLOBIN 29.1 pg (27.0-33.0); MEAN CORPUSCULAR HGB CONC 32.3 g/dl (32.0-36.5); PLATELET COUNT, AUTOMATED 302 10^3/uL (150-450); RED BLOOD COUNT 4.09 10^6/uL (4.30-6.10); WHITE BLOOD COUNT 18.8 10^3/uL (4.0-10.0)
[2020-01-26 18:49] LABS: INR 1.34; PROTHROMBIN TIME 16.9 SECONDS (12.5-14.3)
[2020-01-26 18:59] LABS: CALCIUM LEVEL 8.9 MG/DL (8.8-10.2); CREATININE FOR GFR 1.73 MG/DL (0.70-1.30); GLOMERULAR FILTRATION RATE 40.5 (>35); MAGNESIUM LEVEL 2.2 MG/DL (1.8-2.4); PHOSPHORUS LEVEL 2.5 MG/DL (2.5-4.9); POTASSIUM SERUM 4.3 MEQ/L (3.5-5.1); TROPONIN I 0.05 NG/ML (< 0.10)
[2020-01-26] MEDS: ENOXAPARIN 80MG/0.8ML SYRINGE (J1650 PER 10MG) SC SCH (20:23)
--- NOTE | 2020-01-26 21:26 | IPNPDOC ---
Subjective Date Seen The patient was seen on 01/26/20. Subjective Chief Complaint/HPI Mr. Mireles is an 84 year old male with metastatic carcinoma of unknown primary source and chronic pulmonary embolism who was initially here for acute hypoxic respiratory failure and developed first shock, then atrial fibrillation with RVR. Overnight, patient received duonebs which may have contributed to his his afib with RVR alongside with Levophed. He was given 0.25mg of digoxin overnight with no improvement. This morning, reached out to Dr. Hernandez who recommended giving another dose of digoxin and first step amiodarone. Otherwise, he continues with CRRT Objective Physical Examination General Exam: Positive: Alert, Cooperative Eye Exam: Positive: PERRLA, Conjunctiva & lids normal, Other Eye Symptoms (beginning to have a sunken appearance); Negative: Sclera icteric ENT Exam: Positive: Atraumatic, Mucous membr. moist/pink, Pharynx Normal Neck Exam: Positive: Supple; Negative: Lymphadenopathy (including supraclavicular) Chest Exam: Positive: Diminished Heart Exam: Positive: Rate Normal, Regular Rhythm Abdomen Exam: Positive: Soft; Negative: Normal bowel sounds, Tenderness, Hepatospenomegaly Extremity Exam: Positive: Normal pulses; Negative: Clubbing, Cyanosis, Edema Skin Exam: Positive: Nl turgor and temperature; Negative: Breakdown, Lesion Neuro Exam: Positive: Normal Speech, Cranial Nerves 3-12 NL Psych Exam: Positive: Mental status NL, Mood NL, Oriented x 3 Assessment /Plan Assessment Mr. Mireles is an 84 year old male with metastatic carcinoma of unknown primary source and chronic pulmonary embolism who was initially here for acute hypoxic respiratory failure and developed first shock, then atrial fibrillation with RVR. Pulmonary/Critical care following for the acute hypoxic respiratory failure and shock, recommendations appreciated. He requires Levophed today. Patient did go into atrial fibrillation with RVR. Duonebs and Levophed may have contributed to the RVR. Unable to do beta-blockers and patient did not respond to digoxin. Reached out to Cardiology about amiodarone drip. Recommendations appreciated. Otherwise, nephrology following for CRRT for acute renal failure Plan/VTE VTE Prophylaxis Ordered?: Yes Plan 1. Toxic metabolic encephalopathy -Multifactorial. Polypharmacy with oxycodone and uremia -On CRRT for acute renal failure -Supportive care 2. Acute hypoxic respiratory failure -Possibly iatrogenic from fluid resuscitation in the setting of acute renal failure -Nephrology and pulmonary following, recommendations appreciated. -Was on bipap, now on NC -Respiratory panel was negative (COVID negative) 3. Acute renal failure -May be secondary to Aleve -On admission creatinine was 5.33 -Nephrology following, recommendations appreciated -On CRRT 4. Shock -Unknown etiology -On Cefotetan -Requiring Levophed today -On trial period of Hydrocortisone 5. Atrial fibrillation with RVR -Levophed and duonebs may have contributed to RVR -Did not respond to digoxin -Consulted Cardiology, Dr. Hernandez -On amiodarone 6. Hypothyroidism -Continue on levothyroxine 7. DVT ppx -Lovenox 1mg/kg qD VS, I&O, 24H, Fishbone Vital Signs/I&O Vital Signs Date Time Temp Pulse Resp B/P (MAP) Pulse Ox O2 Delivery O2 Flow Rate FiO2 01/26/20 19:00 136 105/55 (72) 01/26/20 16:01 90 Nasal Cannula 4.0 01/26/20 15:46 96.4 20 01/25/20 12:00 100 I&O- Last 24 Hours up to 6 AM 01/26/20 06:00 Intake Total 827.5 ml Output Total 1014 ml Balance -186.5 ml Laboratory Data 24H LABS Laboratory Tests 2 01/25/20 23:32: Magnesium Level 2.0, Troponin I < 0.02# 01/26/20 04:58: Magnesium Level 2.0, Troponin I 0.02, Immature Granulocyte % (Auto) , Ne utrophils (%) (Auto) , Nucleated Red Blood Cells % (auto) 0.0, Neutrophils 92H, Band Neutrophils 3, Lymphocytes (Manual) 2L, Monocytes (Manual) 3, Anisocytosis 1+, Platelet Estimate NORMAL, Anion Gap 10, Glomerular Filtration Rate 26.3L, Calcium Level 8.2L, Phosphorus Level 3.3#, Total Bilirubin 0.4, Aspartate Amino Transf (AST/SGOT) 45H, Alanine Aminotransferase (ALT/SGPT) 15, Alkaline Phosphatase 70, Lactate Dehydrogenase 571H, Total Creatine Kinase 66, Total Protein 5.3L, Albumin 1.6L, Albumin/Globulin Ratio 0.4, Triglycerides Level 144, Cholesterol Level 110 01/26/20 06:23: Whole Blood Ionized Calcium 4.6 01/26/20 18:08: Magnesium Level 2.2, Troponin I 0.05#, Nucleated Red Blood Cells % (auto) 0.0, Anion Gap 7L, Glomerular Filtration Rate 40.5, Calcium Level 8.9, Phosphorus Level 2.5#, Whole Blood Ionized Calcium 4.7, Prothrombin Time 16.9H, Prothromb Time International Ratio 1.34, Activated Partial Thromboplast Time 40.0H CBC/BMP Laboratory Tests 01/25/20 23:32 01/26/20 04:58 01/26/20 18:08 Microbiology Microbiology 01/24/20 Respiratory Virus Panel (PCR) ([facility]) - Final, Complete ZAYNAB MEHTA DO Jan 26, 2020 21:26
[2020-01-26] MEDS: NOREPINEPHRINE BITARTRATE 16 MG in D5W 484 ML IV SCH (22:00)
[2020-01-27] VITALS (72 sets, daily range): BP systolic 67–145; BP diastolic 43–86
[2020-01-27] MEDS ORDERED: AMIODARONE HCL 360 MG in IV 1 EA IV SCH (03:00)
[2020-01-27] MEDS: NOREPINEPHRINE BITARTRATE 16 MG in D5W 484 ML IV SCH (04:00)
[2020-01-27] MEDS: LEVOTHYROXINE 50MCG TABLET (0.05MG) PO SCH (05:49)
[2020-01-27] MEDS: HYDROCORTISONE 100 MG/2 ML VIAL (J1720 PER 1) IV SCH ×3 (05:49→21:59)
[2020-01-27 05:58] LABS: HEMATOCRIT 32.9 % (42.0-52.0); HEMOGLOBIN 10.7 g/dl (13.5-17.5); MEAN CORPUSCULAR HEMOGLOBIN 29.5 pg (27.0-33.0); MEAN CORPUSCULAR HGB CONC 32.5 g/dl (32.0-36.5); MEAN CORPUSCULAR VOLUME 90.6 fl (80.0-96.0); PLATELET COUNT, AUTOMATED 270 10^3/uL (150-450); RED BLOOD COUNT 3.63 10^6/uL (4.30-6.10); WHITE BLOOD COUNT 18.7 10^3/uL (4.0-10.0)
[2020-01-27 06:12] LABS: PARTIAL THROMBOPLASTIN TIME 42.8 SECONDS (24.2-38.5)
[2020-01-27 06:15] LABS: INR 1.3; PROTHROMBIN TIME 16.5 SECONDS (12.5-14.3)
[2020-01-27 06:29] LABS: LYMPHOCYTES 2 % (16-44); MONOCYTES 1 % (0-5); NEUTROPHILS 93 % (28-66); PLATELET ESTIMATE NORMAL (NORMAL)
[2020-01-27 06:30] LABS: GIANT PLATELETS 1+; POLYCHROMASIA 1+
[2020-01-27 06:31] LABS: ANISOCYTOSIS 1+
[2020-01-27 06:45] LABS: ALBUMIN 1.5 GM/DL (3.2-5.2); BILIRUBIN,TOTAL 0.3 MG/DL (0.2-1.0); CALCIUM LEVEL 8.4 MG/DL (8.8-10.2); CREATININE FOR GFR 1.41 MG/DL (0.70-1.30); GLOMERULAR FILTRATION RATE 51.2 (>35); MAGNESIUM LEVEL 2.1 MG/DL (1.8-2.4); PHOSPHORUS LEVEL 1.6 MG/DL (2.5-4.9)
[2020-01-27 08:30] LABS: CORTISOL AM 61.9 UG/DL (4.3-22.4)
--- NOTE | 2020-01-27 08:32 | REP ---
INDICATION: pulm edema. COMPARISON: Portable chest dated 01/26/2020. TECHNIQUE: The there is a single AP view of the chest performed portably with the patient upright. FINDINGS: The bilateral infiltrates are unchanged. The discoid atelectasis inferiorly in the left lung is unchanged. The right subclavian central venous catheter is unchanged. Cardiac size is normal. IMPRESSION: There is no significant interval change. <Electronically signed by Porter Khalil > 01/27/20 0829
[2020-01-27] MEDS ORDERED: POTASSIUM PHOSPHATE INJ 30 MMOL in D5W 500 ML IV ONE ×2 (09:00→21:30)
[2020-01-27] MEDS: MIRALAX *UNIT DOSE* 17GM PACKET PO SCH (09:06)
[2020-01-27] MEDS: ASCORBIC ACID 500 MG TAB PO SCH (09:07)
[2020-01-27] MEDS: OMEPRAZOLE 20 MG CAP PO SCH ×2 (09:07→20:22)
[2020-01-27] MEDS: MULTIVITAMINS/MINERALS THERAP 1 TAB PO SCH (09:07)
[2020-01-27] MEDS: cefoTEtan DISODIUM 1 GM in D5W MINI-BAG PLUS 50 ML IV SCH ×2 (09:24→21:59)
--- NOTE | 2020-01-27 12:28 | IPN ---
NEPHROLOGY CRITICAL CARE PROGRESS NOTE DATE: 01/27/2020 SUBJECTIVE: Mr. Mireles is seen this morning at his bedside. He is feeling about the same and denies any nausea, vomiting, dyspnea or chest pain. He remains in atrial fibrillation with a ventricular rate in the 130's. He is currently on an Amiodarone drip. He had minimal urine output and remains on CRRT due to acute renal failure. Currently he is off Levophed, but he has been hypotensive requiring Levophed through the night. He has not required BIPAP anymore and his oxygen saturation has been about 90% with high flow nasal cannula. PHYSICAL EXAMINATION: VITAL SIGNS: Temperature 98 degrees Fahrenheit, heart rate 130's, and blood pressure 113/60 mm of mercury. Oxygen saturation is 94%. HEENT: His head is atraumatic. NECK: Supple and JVD is not abnormally elevated. HEART: Tachycardic and irregular. LUNGS: Diminished breath sounds at the bases. ABDOMEN: Distended with ascites and bowel sounds are present. EXTREMITIES: Without any cyanosis or clubbing. He has edema on his feet and ankles bilaterally. NEUROLOGICALLY: He is awake and grossly intact. LABORATORY STUDIES: Today's labs show a WBC count of 18.7, hemoglobin 10.7 and hematocrit 32.9, platelets 270. Sodium 137, potassium 4.0, CO2 28, BUN 13, and creatinine 1.41, glucose 119 and calcium 8.4. Phosphorous is 1.6 today and albumin is 1.5. His cortisol level is 61.9. PROBLEMS: 1. Acute renal failure - The patient remains oliguric and has been on CRRT. He is quite tachycardic, and at times he is hypotensive requiring pressors. We will continue with CRRT for the next 24 hours. He is not suitable for intermittent hemodialysis at this time due to unstable cardiac function. 2. Congestive heart failure and hypoxemia his volume status is gradually improving and we will continue fluid removal with CRRT as tolerated. 3. Anemia at present anemia is stable and does not need any urgent intervention. 4. Metastatic cancer with carcinomatosis his usp prognosis remains poor. The patient wishes to continue with acute care at this point. His prognosis remains poor. 5. Protein calorie malnutrition this is related to decreased oral intake and metastatic cancer. The patient is being encouraged to increase his protein intake. 27 minutes of critical care time spent on bedside during which no procedures performed. MTDD
--- NOTE | 2020-01-27 13:28 | CCN ---
CRITICAL CARE NOTE DATE: 01/27/2020 SUBJECTIVE: The patient is seen in the intensive care unit on high-flow oxygen and hypotensive requiring Levophed be added back in. In the night, he developed atrial fibrillation with rapid ventricular response. He also continues on CRRT. OBJECTIVE: VITAL SIGNS: At bedside, his temperature is 97, pulse rate 143, blood pressure 121/66, respiratory rate 20, saturation on oxygen is now 91%. I and O for the past 24 hours 1155 in, 1643 out; since midnight 100 in, 22 mL out. CRRT is ongoing. GENERAL APPEARANCE: He is ill-appearing. HEENT: His moral mucosa is somewhat dry. NECK: Supple. HEART: Sounds are irregularly irregular. Monitor showing atrial fibrillation. Insertion site for his right subclavian catheter is clean. CHEST: Symmetric. RESPIRATORY: Breath sounds mildly diminished. Coarse clear. There is some dullness in the left base. ABDOMEN: Distended. There is evidence of ascites. EXTREMITIES: Cool. Pulses are palpable. DIAGNOSTIC STUDIES: White cell count remains somewhat elevated at 18.7, hemoglobin is down to 10.7, hematocrit 32.9, and platelet count of 270,000. Differential white cell count shows 93% neutrophils. The electrolytes are sodium 137, potassium 4.0. chloride 105, CO2 of 28, BUN of 13, creatinine 1.41, glucose is 119. His calcium is 8.4 and albumin of 1.5. The AST is 41, ALT 15, LDH 478. PT 16, PTT 42.8, INR 1.3. Chest x-ray was reviewed and is essentially unchanged. There is some atelectasis in the left base. Pleural fluid was exudative. No culture was sent. No malignant cells are appreciated by pathology. MEDICATIONS: On review, this is day #2 of Cefotan. He has been given amiodarone and digoxin in the night. Potassium replacement. He is receiving Xopenex, hydrocortisone 50 mg every eight hours, Levophed titrated for a mean arterial pressure of 65, and Lovenox 80 mg every 24 hours. ASSESSMENT AND PLAN: The primary problem requiring critical attention is hypoxemia. Oxygen requirement is slightly less and he has been able to stay off noninvasive ventilation; however, his saturations remain somewhat tenuous. We will continue with high-flow oxygen. Hypotension: The patient is back on Levophed. Central venous pressure (CVP) measured 11 this morning. Acute kidney injury: Continuous renal replacement therapy (CRRT) continues. There is minimal urine output. Atrial fibrillation: His ventricular response is still somewhat rapid. Cardiology is consulting. Deep vein thrombosis (DVT) prophylaxis: This is being addressed with Lovenox. The dose is high. Initially, there was concern over possibly pulmonary embolism and now with his cardiac arrhythmia, this may be an appropriate dose of Lovenox. Will defer to cardiology. Diffuse adenocarcinoma of unknown primary: The pleural fluid is likely reactive, though it may be related to a malignant abdominal effusion. No malignant cells were appreciated. His condition is critical. Prognosis is poor. 51 minutes were spent in the provision of bedside critical care and coordination, exclusive of any procedure time.
--- NOTE | 2020-01-27 18:50 | IPNPDOC ---
Subjective Date Seen The patient was seen on 01/27/20. Subjective Chief Complaint/HPI Mr. Mireles is an 84 year old male with metastatic carcinoma of unknown primary source and chronic pulmonary embolism who was initially here for acute hypoxic respiratory failure and developed first shock, then atrial fibrillation with RVR. Patient denies palpitations or chest pain. Otherwise, he continues on CRRT. Levophed requirements have decreased Objective Physical Examination General Exam: Positive: Alert, Cooperative Eye Exam: Positive: PERRLA, Conjunctiva & lids normal, Other Eye Symptoms (beginning to have a sunken appearance); Negative: Sclera icteric ENT Exam: Positive: Atraumatic, Mucous membr. moist/pink, Pharynx Normal Neck Exam: Positive: Supple; Negative: Lymphadenopathy (including supraclavicular) Chest Exam: Positive: Diminished Heart Exam: Positive: Rate Normal, Regular Rhythm Abdomen Exam: Positive: Soft; Negative: Normal bowel sounds, Tenderness, Hepatospenomegaly Extremity Exam: Positive: Normal pulses; Negative: Clubbing, Cyanosis, Edema Skin Exam: Positive: Nl turgor and temperature; Negative: Breakdown, Lesion Neuro Exam: Positive: Normal Speech, Cranial Nerves 3-12 NL Psych Exam: Positive: Mental status NL, Mood NL, Oriented x 3 Assessment /Plan Assessment Mr. Mireles is an 84 year old male with metastatic carcinoma of unknown primary source and chronic pulmonary embolism who was initially here for acute hypoxic respiratory failure and developed first shock, then atrial fibrillation with RVR. Pulmonary/Critical care following for the acute hypoxic respiratory failure and shock, recommendations appreciated. Levophed requirement has decreased. Patient is currently in atrial fibrillation with RVR. Cardiology following and recommendations appreciated. Unable to do beta-blockers and patient did not respond to digoxin. Patient on amiodarone. Otherwise, nephrology following for CRRT for acute renal failure Plan/VTE VTE Prophylaxis Ordered?: Yes Plan 1. Toxic metabolic encephalopathy -Multifactorial. Polypharmacy with oxycodone and uremia -On CRRT for acute renal failure -Supportive care 2. Acute hypoxic respiratory failure -Possibly iatrogenic from fluid resuscitation in the setting of acute renal failure -Nephrology and pulmonary following, recommendations appreciated. -Was on bipap, now on NC -Respiratory panel was negative (COVID negative) 3. Acute renal failure -May be secondary to Aleve -On admission creatinine was 5.33 -Nephrology following, recommendations appreciated -On CRRT 4. Shock -Unknown etiology -On Cefotetan -Requiring Levophed today, but has been weaned down to 1 to 2 mcg/min -On trial period of Hydrocortisone 5. Atrial fibrillation with RVR -Levophed and duonebs may have contributed to RVR -Did not respond to digoxin -Consulted Cardiology, Dr. Hernandez/Ela -On amiodarone 6. Hypothyroidism -Continue on levothyroxine 7. DVT ppx -Lovenox 1mg/kg qD VS, I&O, 24H, Fishbone Vital Signs/I&O Vital Signs Date Time Temp Pulse Resp B/P (MAP) Pulse Ox O2 Delivery O2 Flow Rate FiO2 01/27/20 18:15 136 104/62 (76) 96 High Flow Cannula 5.0 01/27/20 16:00 97.6 20 01/25/20 12:00 100 I&O- Last 24 Hours up to 6 AM 01/27/20 06:00 Intake Total 1205.0 ml Output Total 756 ml Balance 449.0 ml Laboratory Data 24H LABS Laboratory Tests 2 01/27/20 05:40: Prothrombin Time 16.5H, Prothromb Time International Ratio 1.30, Activated Partial Thromboplast Time 42.8H, Anion Gap 4L, Glomerular Filtration Rate 51.2, Calcium Level 8.4L, Phosphorus Level 1.6#L, Magnesium Level 2.1, Total Bilirubin 0.3, Aspartate Amino Transf (AST/SGOT) 41H, Alanine Aminotransferase (ALT/SGPT) 15, Alkaline Phosphatase 91, Lactate Dehydrogenase 478H, Total Creatine Kinase 49, Total Protein 5.0L, Albumin 1.5L, Albumin/Globulin Ratio 0.4, Triglycerides Level 229H, Cholesterol Level 111, Cortisol AM Sample 61.9H 01/27/20 05:42: Immature Granulocyte % (Auto) , Neutrophils (%) (Auto) , Nucleated Red Blood Cells % (auto) 0.0, Neutrophils 93H, Band Neutrophils 4, Lymphocytes (Manual) 2L, Monocytes (Manual) 1, Polychromasia 1+, Anisocytosis 1+, Giant Platelets 1+, Platelet Estimate NORMAL, Whole Blood Ionized Calcium 4.7 CBC/BMP Laboratory Tests 01/27/20 05:40 01/27/20 05:42 Microbiology Microbiology 01/24/20 Respiratory Virus Panel (PCR) ([facility]) - Final, Complete ZAYNAB MEHTA DO Jan 27, 2020 18:50
[2020-01-27] MEDS ORDERED: CALCIUM GLUCONATE 1,000 MG in NS 100 ML IV ONE (19:45)
[2020-01-27 19:54] LABS: INR 1.11; PROTHROMBIN TIME 14.5 SECONDS (12.5-14.3)
[2020-01-27 19:55] LABS: PARTIAL THROMBOPLASTIN TIME 31.6 SECONDS (24.2-38.5)
[2020-01-27 20:04] LABS: BLOOD UREA NITROGEN 9 MG/DL (7-18); CALCIUM LEVEL 7.9 MG/DL (8.8-10.2); CARBON DIOXIDE LEVEL 28 MEQ/L (21-32); CHLORIDE LEVEL 103 MEQ/L (98-107); CREATININE FOR GFR 1.13 MG/DL (0.70-1.30); GLOMERULAR FILTRATION RATE > 60.0 (>35); GLUCOSE, FASTING 101 MG/DL (70-100); MAGNESIUM LEVEL 2.2 MG/DL (1.8-2.4); POTASSIUM SERUM 4.2 MEQ/L (3.5-5.1); SODIUM LEVEL 138 MEQ/L (136-145)
[2020-01-27] MEDS: ENOXAPARIN 80MG/0.8ML SYRINGE (J1650 PER 10MG) SC SCH (20:22)
[2020-01-27] MEDS: AMIODARONE 200 MG TAB (PACERONE) PO SCH (20:22)
[2020-01-27] MEDS ORDERED: DIGOXIN INJ 0.5 MG/2 ML AMP (J1160) IV ONE (23:45)
[2020-01-28] VITALS (30 sets, daily range): BP systolic 94–155; BP diastolic 51–77
[2020-01-28] MEDS: NOREPINEPHRINE BITARTRATE 16 MG in D5W 484 ML IV SCH (04:00)
[2020-01-28 06:10] LABS: BASO % 0.2 % (0.0-1.0); HEMATOCRIT 35.2 % (42.0-52.0); HEMOGLOBIN 11.6 g/dl (13.5-17.5); LYMPH # 0.5 10^3/uL (1.5-5.0); LYMPH % 2.3 % (24.0-44.0); MEAN CORPUSCULAR HEMOGLOBIN 29.7 pg (27.0-33.0); MEAN CORPUSCULAR VOLUME 90.3 fl (80.0-96.0); MONO # 0.3 10^3/uL (0.0-0.8); MONO % 1.7 % (0.0-5.0); NEUTROPHILS # 18.9 10^3/uL (1.5-8.5); NEUTROPHILS % 95.1 % (36.0-66.0); PLATELET COUNT, AUTOMATED 268 10^3/uL (150-450); WHITE BLOOD COUNT 19.8 10^3/uL (4.0-10.0)
[2020-01-28 06:24] LABS: INR 1.13; PARTIAL THROMBOPLASTIN TIME 31.3 SECONDS (24.2-38.5); PROTHROMBIN TIME 14.8 SECONDS (12.5-14.3)
[2020-01-28 06:39] LABS: ALBUMIN 1.6 GM/DL (3.2-5.2); ALT/SGPT 17 U/L (12-78); BILIRUBIN,TOTAL 0.4 MG/DL (0.2-1.0); BLOOD UREA NITROGEN 7 MG/DL (7-18); CALCIUM LEVEL 8.4 MG/DL (8.8-10.2); CARBON DIOXIDE LEVEL 30 MEQ/L (21-32); CHLORIDE LEVEL 104 MEQ/L (98-107); CHOLESTEROL LEVEL 135 MG/DL (< 200); CPK CREATINE PHOSPHOKINASE 31 U/L (39-308); GLOMERULAR FILTRATION RATE > 60.0 (>35); GLUCOSE, FASTING 90 MG/DL (70-100); LDH LACTATE DEHYDROGENASE 467 U/L (87-241); PHOSPHORUS LEVEL 2.8 MG/DL (2.5-4.9); POTASSIUM SERUM 4.2 MEQ/L (3.5-5.1); SODIUM LEVEL 137 MEQ/L (136-145); TOTAL PROTEIN 5.3 GM/DL (6.4-8.2); TRIGLYCERIDES LEVEL 249 MG/DL (<150)
[2020-01-28] MEDS ORDERED: CALCIUM GLUCONATE 1,000 MG in NS 100 ML IV ONE (06:45)
[2020-01-28] MEDS: LEVOTHYROXINE 50MCG TABLET (0.05MG) PO SCH (07:00)
[2020-01-28] MEDS: HYDROCORTISONE 100 MG/2 ML VIAL (J1720 PER 1) IV SCH ×3 (07:00→22:27)
--- NOTE | 2020-01-28 08:03 | REP ---
INDICATION: pulm edema. COMPARISON: Portable chest dated 01/27/2020. Chest CT dated 12/30/2019. TECHNIQUE: Single AP view of the chest performed portably with the patient sitting. FINDINGS: The patient had ultrasound guided left thoracentesis on 01/24/2020 where 1800 mL of fluid was withdrawn. The interstitial infiltrative pattern appears slightly improved. The discoid atelectasis inferiorly in the left lung is unchanged. The left hemidiaphragm is again obscured suggestive of a left lower lobe infiltrate/effusion/combination, however, this is unchanged. The right subclavian central venous catheter is unchanged. Cardiac size is normal. IMPRESSION: The interstitial infiltrative pattern appears slightly improved. There is no other interval change. <Electronically signed by Porter Khalil > 01/28/20 [id number]
[2020-01-28] MEDS: MIRALAX *UNIT DOSE* 17GM PACKET PO SCH (08:33)
[2020-01-28] MEDS: MULTIVITAMINS/MINERALS THERAP 1 TAB PO SCH (08:34)
[2020-01-28] MEDS: OMEPRAZOLE 20 MG CAP PO SCH ×2 (08:34→22:28)
[2020-01-28] MEDS: ASCORBIC ACID 500 MG TAB PO SCH (08:34)
[2020-01-28] MEDS: AMIODARONE 200 MG TAB (PACERONE) PO SCH ×2 (08:43→22:28)
[2020-01-28] MEDS ORDERED: BISACODYL 10 MG SUPP PR PRN (08:45)
--- NOTE | 2020-01-28 09:00 | CCN ---
CRITICAL CARE NOTE DATE: 01/28/2020 CRITICAL CARE TIME: 43 minutes. This excludes all procedures. SUBJECTIVE: At the patient's bedside, the patient is conversant. He states he has abdominal cramping and otherwise no pain. Denies any shortness of breath, despite his severe hypoxia. Remains on CRRT. Last evening, he converted from AFib to sinus and in doing so, blood pressure improved. No longer requiring Levophed. Has a persistent worsening leukocytosis on cefotetan. OBJECTIVE: VITAL SIGNS: Temperature 97.6, pulse 83, respiratory rate 18, blood pressure 123 to 130 systolic/66 diastolic with a mean arterial pressure of 85. Oxygen saturation is 91% on 5 liters. GENERAL: Awake, alert, and oriented. Affect and mood are appropriate, although seen slightly confused at times. He does appear ill. HEENT: Mucous membranes are on the dry side. Tongue is midline. Sclerae clear and anicteric. Pupils equal, round, and reactive to light. NECK: Supple. No tracheal deviation or mass. CARDIAC: Regular S1, S2 without audible murmur, rub, or gallop. There is an elevated JVP. CVP is down to 8. The area of the right subclavian line is without surrounding erythema or exudate. PULMONARY: Decreased breath sounds, especially at the left base, and otherwise clear. There is dullness at the left base of the lungs. No prolongation of expiratory phase. No wheeze. ABDOMEN: Distended and has evidence of ascites with shifting dullness. I am unable to palpate any hepatosplenomegaly due to his abdominal distention. EXTREMITIES: Cool, but peripheral pulses are palpable and regular. There is no cyanosis or clubbing. LABORATORY EVALUATION: White blood cell count is 19.8, hemoglobin 11.6, platelet count of 268,000 with neutrophils of 95%. Sodium is 137, potassium 4.2, chloride 104, bicarb of 30, BUN of 7, creatinine of 1.10. Calcium is 84. ICAL is 4.6. Albumin is low. IMAGING: Chest x-ray shows a little bit of a right hilar infiltrate. Left pleural effusion is present with fluid in the left fissure. No evidence of pneumothorax. ASSESSMENT: 1. Hypoxia severe in nature still requiring 5 liters. He has not required BiLevel noninvasive therapy overnight. Will continue oxygen. Likely secondary to decompensated state and extravascular fluid overload. 2. Leukocytosis with bandemia. Blood cultures have not been checked. It is quite possible that his leukocytosis is from his metastatic cancer of unknown primary. However, would be vigilant monitoring for ongoing infection. He is on one antibiotic currently cefotetan and he is showing no signs of septic shock. However, would continue workup for infectious etiology. 3. Diffuse cancer of unknown primary. Oncology following. 4. Protein malnourishment. Encourage p.o. intake. 5. Deep vein thrombosis (DVT) prophylaxis with Lovenox. 6. Gastrointestinal (GI) prophylaxis with Prilosec. 7. Hypothyroidism on Synthroid. 8. Prognosis extremely poor given his evidence of metastatic cancer.
[2020-01-28] MEDS ORDERED: ISOVUE-370 76% 100ML VIAL As Ordered ONE (09:47)
[2020-01-28] MEDS: cefoTEtan DISODIUM 1 GM in D5W MINI-BAG PLUS 50 ML IV SCH ×2 (10:32→22:27)
--- NOTE | 2020-01-28 10:50 | REP ---
INDICATION: Ischemic bowel, ARF. COMPARISON: Comparison CT study of the abdomen and pelvis January 05, 2020. December 30, 2019 prior study is also reviewed. This latter exam was done with IV contrast.. TECHNIQUE: Helical scanning is acquired and 3 mm axial images re-formatted. Coronal and sagittal MPR images are generated. The CT contrast enhancement dose is 100 mL of intravenous Isovue 370. FINDINGS: Digital preliminary business solutions architect radiograph demonstrates a mild ileus pattern in the bowel gas. There is a large amount of stool in the rectum which appears to be distended. There is a right femoral venous line and a prosthetic right hip. Axial CT images demonstrate bilateral pleural effusions, moderate on the left and small on the right. This is a new finding on the right and slightly increased on the left compared to the prior study. There is new ground-glass opacity in the right middle lobe and right lower lobe today question pneumonia. There is persistent atelectasis in the left lower lobe and to a lesser extent the right lower lobe. Mild diffuse abdominal ascites is seen. There is multifocal peritoneal tumor studding and omental caking again noted. A large enhancing mass is seen centered in the lesser sac and anterior to the pancreas as before. No intrahepatic lesion is seen. There is 1 small cyst in the right lobe. The spleen is unremarkable. Renal cysts are again noted. Celiac axis and superior mesenteric arteries remain patent. The inferior mesenteric artery is patent. There is a Ceja catheter in the urinary bladder. There is no evidence of free intraperitoneal air. There is formed stool dilating the rectum question constipation fecal impaction pattern. Mild ileus pattern in the central abdominal small bowel. IMPRESSION: Peritoneal carcinomatosis pattern persists essentially unchanged. There is mild ascites. New right pleural effusion. Moderate left pleural effusion. Ileus pattern in the bowel gas. No evidence of free air. Large amount of stool is seen distending the rectum question constipation fecal impaction. <Electronically signed by Medhat Lopez > 01/28/20 [id number]
[2020-01-28] MEDS: SENNA 8.6 MG TAB (SENOKOT) PO SCH ×2 (14:37→22:28)
--- NOTE | 2020-01-28 15:34 | IPN ---
CRITICAL CARE NOTE DATE: 01/28/2020 Mr. Mireles is seen this morning on his bedside in the intensive care unit. He remains on continuous renal replacement therapy (CRRT) on his bedside. He is still not making much urine. He is very weak and reports that he has not had any appetite or bowel movement. His abdomen is quite distended. Nursing staff reports that he was on Levophed again through the night; however, this morning he is off Levophed now. He has also converted into sinus rhythm today. PHYSICAL EXAMINATION: Temperature 97.7 degrees Fahrenheit, heart rate about 85 per minute, and respiratory rate 18 per minute. Blood pressure 123/59 mm of mercury, and oxygen saturation 90% on 4 liters oxygen. His head is atraumatic. Neck is supple and jugular venous distention (JVD) not abnormally elevated. Heart sounds are regular today and without a pericardial friction rub. Lungs are with diminished breath sounds at bases. Abdomen is markedly distended and mildly tender. Bowel sounds are hypoactive, if at all. Extremities without any cyanosis or clubbing. Neurologically, he is awake and at his baseline mentation. Today's labs show WBC count 19.8, hemoglobin 11.6, and hematocrit 35.2. Platelets 268. Sodium 137, potassium 4.2, CO2 of 30, BUN 7, and creatinine 1.10. Glucose 8.4, calcium is 8.4, and phosphorus 2.8. Total protein 6.3 and albumin 1.6. PROBLEMS: 1. Oliguric renal failure. Patient remains oliguric and currently dialysis dependent. He is still on CRRT. 2. Hypotension. His blood pressure is improved, and he is currently off the pressors. We will continue our efforts to remove some fluid in order to improve his volume status. 3. Atrial fibrillation. Patient has already converted to sinus rhythm and remains on amiodarone. 4. Abdominal distention and leukocytosis. A CT scan of abdomen and pelvis is being ordered with intravenous (IV) contrast due to his history of carcinomatosis and now leukocytosis. 5. Metastatic cancer with carcinomatosis. His overall prognosis remains poor, as he has acute renal failure and not a candidate for any chemotherapy. At this point, patient has wished to continue with acute care. I will recommend hospice for him. 28 minutes of critical care time spent on the bedside during which no procedures were performed. [facility]
--- NOTE | 2020-01-28 20:09 | IPNPDOC ---
Subjective Date Seen The patient was seen on 01/28/20. Subjective Chief Complaint/HPI Mr. Mireles is an 84 year old male with metastatic carcinoma of unknown primary source and chronic pulmonary embolism who was initially here for acute hypoxic respiratory failure and developed first shock, then atrial fibrillation with RVR. Today, he was weaned off of Levophed. We may be able to pursue intermittent dialysis if his renal function does not return. Otherwise today, denies fever, chest pain, or dyspnea. Abdomen appears distended and tight. Went for a CT angio of abdomen and pelvis. Demonstrated unchanged peritoneal carcinomatosis and ileus patter of bowel gas with large amount of stool. Objective Physical Examination General Exam: Positive: Alert, Cooperative Eye Exam: Positive: PERRLA, Conjunctiva & lids normal, Other Eye Symptoms (beginning to have a sunken appearance); Negative: Sclera icteric ENT Exam: Positive: Atraumatic, Mucous membr. moist/pink, Pharynx Normal Neck Exam: Positive: Supple; Negative: Lymphadenopathy (including supraclavicular) Chest Exam: Positive: Diminished Heart Exam: Positive: Rate Normal, Regular Rhythm Abdomen Exam: Positive: Other (Distended); Negative: Normal bowel sounds, Soft, Tenderness Extremity Exam: Positive: Normal pulses; Negative: Clubbing, Cyanosis, Edema Skin Exam: Positive: Nl turgor and temperature; Negative: Breakdown, Lesion Neuro Exam: Positive: Normal Speech, Cranial Nerves 3-12 NL Psych Exam: Positive: Mental status NL, Mood NL, Oriented x 3 Assessment /Plan Assessment Mr. Mireles is an 84 year old male with metastatic carcinoma of unknown primary so urce and chronic pulmonary embolism who was initially here for acute hypoxic respiratory failure and developed first shock, then atrial fibrillation with RVR. Pulmonary/Critical care following for the acute hypoxic respiratory failure and shock, recommendations appreciated. Patient no longer requires Levophed. Patient was in atrial fibrillation with RVR, but converted with amiodarone. Cardiology following and recommendations appreciated. Otherwise, nephrology for acute renal failure. May need intermittent dialysis of renal function does not improve. Overall his prognosis is poor due to wide spread of metastasis and renal failure Plan/VTE VTE Prophylaxis Ordered?: Yes Plan 1. Toxic metabolic encephalopathy -Multifactorial. Polypharmacy with oxycodone and uremia -Was on CRRT due to Levophed, but now off of Levophed, may pursue intermittent dialysis if needed -Supportive care 2. Acute hypoxic respiratory failure -Possibly iatrogenic from fluid resuscitation in the setting of acute renal failure -Nephrology and pulmonary following, recommendations appreciated. -Was on bipap, now on NC -Respiratory panel was negative (COVID negative) 3. Acute renal failure -May be secondary to Aleve -On admission creatinine was 5.33 -Nephrology following, recommendations appreciated -Off Levophed, may be able to pursue intermittent dialysis 4. Shock -Unknown etiology -On Cefotetan -Off Levophed -On trial period of Hydrocortisone 5. Atrial fibrillation with RVR -Levophed and duonebs may have contributed to RVR -Did not respond to digoxin -Consulted Cardiology, Dr. Hernandez/Ela -On amiodarone 6. Hypothyroidism -Continue on levothyroxine 7. DVT ppx -Lovenox 1mg/kg qD VS, I&O, 24H, Fishbone Vital Signs/I&O Vital Signs Date Time Temp Pulse Resp B/P (MAP) Pulse Ox O2 Delivery O2 Flow Rate FiO2 01/28/20 18:00 100 18 115/65 (82) 93 Nasal Cannula 5.0 01/28/20 16:00 98.3 01/25/20 12:00 100 I&O- Last 24 Hours up to 6 AM 01/28/20 06:00 Intake Total 1475.2 ml Output Total 1129 ml Balance 346.2 ml Laboratory Data 24H LABS Laboratory Tests 2 01/28/20 05:49: Immature Granulocyte % (Auto) 0.7, Neutrophils (%) (Auto) 95.1H, Lymphocytes (%) (Auto) 2.3L, Monocytes (%) (Auto) 1.7, Eosinophils (%) (Auto) 0.0, Basophils (%) (Auto) 0.2, Neutrophils # (Auto) 18.9H, Lymphocytes # (Auto) 0.5L, Monocytes # (Auto) 0.3, Eosinophils # (Auto) 0.0, Basophils # (Auto) 0.0, Nucleated Red Blood Cells % (auto) 0.0, Prothrombin Time 14.8H, Prothromb Time International Ratio 1.13, Activated Partial Thromboplast Time 31.3, Anion Gap 3L, Glomerular Filtration Rate > 60.0, Calcium Level 8.4L, Whole Blood Ionized Calcium 4.6, Phosphorus Level 2.8#, Magnesium Level 2.0, Total Bilirubin 0.4, Aspartate Amino Transf (AST/SGOT) 42H, Alanine Aminotransferase (ALT/SGPT) 17, Alkaline Phosphatase 100, Lactate Dehydrogenase 467H, Total Creatine Kinase 31L, Total Protein 5.3L, Albumin 1.6L, Albumin/Globulin Ratio 0.4, Triglycerides Level 249H, Cholesterol Level 135 CBC/BMP Laboratory Tests 01/28/20 05:49 Microbiology Microbiology 01/28/20 Blood Culture, Received Pending 01/28/20 Blood Culture, Received Pending 01/24/20 Respiratory Virus Panel (PCR) ([facility]) - Final, Complete ZAYNAB MEHTA DO Jan 28, 2020 20:09
[2020-01-28] MEDS ORDERED: RAMELTEON 8 MG TAB (ROZEREM) PO ONE (21:15)
[2020-01-28] MEDS: ENOXAPARIN 80MG/0.8ML SYRINGE (J1650 PER 10MG) SC SCH (22:27)
[2020-01-29] VITALS (11 sets, daily range): BP systolic 97–132; BP diastolic 53–74
[2020-01-29 04:42] LABS: BASO % 0.1 % (0.0-1.0); HEMOGLOBIN 10.4 g/dl (13.5-17.5); LYMPH # 0.4 10^3/uL (1.5-5.0); LYMPH % 2.4 % (24.0-44.0); MEAN CORPUSCULAR HEMOGLOBIN 28.2 pg (27.0-33.0); MEAN CORPUSCULAR HGB CONC 31.5 g/dl (32.0-36.5); MEAN CORPUSCULAR VOLUME 89.4 fl (80.0-96.0); MONO # 0.4 10^3/uL (0.0-0.8); MONO % 2.5 % (0.0-5.0); NEUTROPHILS # 14.5 10^3/uL (1.5-8.5); NEUTROPHILS % 94.2 % (36.0-66.0); PLATELET COUNT, AUTOMATED 268 10^3/uL (150-450); RED BLOOD COUNT 3.69 10^6/uL (4.30-6.10); WHITE BLOOD COUNT 15.4 10^3/uL (4.0-10.0)
[2020-01-29 05:15] LABS: ALBUMIN 1.5 GM/DL (3.2-5.2); BILIRUBIN,TOTAL 0.3 MG/DL (0.2-1.0); CREATININE FOR GFR 2.13 MG/DL (0.70-1.30); GLOMERULAR FILTRATION RATE 31.8 (>35); PHOSPHORUS LEVEL 3.5 MG/DL (2.5-4.9); POTASSIUM SERUM 4.4 MEQ/L (3.5-5.1)
[2020-01-29] MEDS: LEVOTHYROXINE 50MCG TABLET (0.05MG) PO SCH (06:07)
[2020-01-29] MEDS: HYDROCORTISONE 100 MG/2 ML VIAL (J1720 PER 1) IV SCH (06:07)
--- NOTE | 2020-01-29 08:01 | REP ---
INDICATION: pulm edema COMPARISON: 01/28/2020 TECHNIQUE: Portable AP view of the chest FINDINGS: Left lower lobe pleuroparenchymal changes including areas of consolidation/partial collapse and moderate pleural effusion are again noted and similar to prior examination. Subtle airspace disease involving the right hemithorax along with right basilar atelectasis and small right pleural effusion are also suggested and similar to prior examination. Visualized portions of the mediastinum and cardiac silhouette are stable. Right subclavian catheter with tip in the SVC unchanged. No pneumothorax. Skeletal structures appear stable. IMPRESSION: 1. Pleuroparenchymal changes primarily involving the left mid to lower lung zone and right base again noted and similar to prior examination. <Electronically signed by Yuan Gallegos > 01/29/20 [id number]
[2020-01-29] MEDS: MIRALAX *UNIT DOSE* 17GM PACKET PO SCH (09:00)
[2020-01-29] MEDS: OMEPRAZOLE 20 MG CAP PO SCH ×2 (09:34→20:17)
[2020-01-29] MEDS: ASCORBIC ACID 500 MG TAB PO SCH (09:34)
[2020-01-29] MEDS: MULTIVITAMINS/MINERALS THERAP 1 TAB PO SCH (09:34)
[2020-01-29] MEDS: cefoTEtan DISODIUM 1 GM in D5W MINI-BAG PLUS 50 ML IV SCH ×2 (09:35→21:01)
[2020-01-29] MEDS: SENNA 8.6 MG TAB (SENOKOT) PO SCH ×2 (09:35→20:50)
[2020-01-29] MEDS: AMIODARONE 200 MG TAB (PACERONE) PO SCH ×2 (09:35→20:17)
[2020-01-29] MEDS ORDERED: PILL CUTTER 1 EACH XX PRN (10:15)
[2020-01-29] MEDS ORDERED: LORazepam 0.5 MG TAB PO ONE (11:00)
[2020-01-29] MEDS ORDERED: LORazepam 0.5 MG TAB PO PRN (13:30)
--- NOTE | 2020-01-29 13:40 | IPNPDOC ---
Subjective Date Seen The patient was seen on 01/29/20. Subjective Chief Complaint/HPI Mr. Mireles is an 84 year old male with metastatic carcinoma of unknown primary source and chronic pulmonary embolism who was initially here for acute hypoxic respiratory failure and developed first shock, then atrial fibrillation with RVR. Yesterday, hospice has spoke with him. He wanted to make sure that his family was taken cared of before going to hospice. Otherwise, today denies fever, chest pain, dyspnea, or abdominal pain. He is not on CRRT or Levophed at this time. Objective Physical Examination General Exam: Positive: Alert, Cooperative Eye Exam: Positive: PERRLA, Conjunctiva & lids normal, Other Eye Symptoms (beginning to have a sunken appearance); Negative: Sclera icteric ENT Exam: Positive: Atraumatic, Mucous membr. moist/pink, Pharynx Normal Neck Exam: Positive: Supple; Negative: Lymphadenopathy (including supraclavicular) Chest Exam: Positive: Diminished Heart Exam: Positive: Rate Normal, Regular Rhythm Abdomen Exam: Positive: Other (Distended); Negative: Normal bowel sounds, Soft, Tenderness Extremity Exam: Positive: Normal pulses; Negative: Clubbing, Cyanosis, Edema Skin Exam: Positive: Nl turgor and temperature; Negative: Breakdown, Lesion Neuro Exam: Positive: Normal Speech, Cranial Nerves 3-12 NL Psych Exam: Positive: Mental status NL, Mood NL, Oriented x 3 Assessment /Plan Assessment Mr. Mireles is an 84 year old male with metastatic carcinoma of unknown primary source and chronic pulmonary embolism who was initially here for acute hypoxic respiratory failure and developed first shock, then atrial fibrillation with RVR. Pulmonary/Critical care following for the acute hypoxic respiratory failure and shock, recommendations appreciated. Patient no longer requires Levophed. Patient was in atrial fibrillation with RVR, but converted with amiodarone. Cardiology following and recommendations appreciated. Otherwise, nephrology for acute renal failure. Urine output is poor and has not returned. Overall his prognosis is poor due to wide spread of metastasis and renal failure. Patient is considering hospice once he knows his family will be taken cared of. Possible hospice on Friday Plan/VTE VTE Prophylaxis Ordered?: Yes Plan 1. Toxic metabolic encephalopathy -Multifactorial. Polypharmacy with oxycodone and uremia -Was on CRRT due to Levophed, but now off of Levophed, may pursue intermittent dialysis if needed/desired -Supportive care 2. Acute hypoxic respiratory failure -Possibly iatrogenic from fluid resuscitation in the setting of acute renal failure -Nephrology and pulmonary following, recommendations appreciated. -Was on bipap, now on NC -Respiratory panel was negative (COVID negative) 3. Oliguric renal failure -May be secondary to Aleve -On admission creatinine was 5.33 -Nephrology following, recommendations appreciated -Off Levophed, may be able to pursue intermittent dialysis if desired -Still poor urine output 4. Shock -Unknown etiology -On Cefotetan -Off Levophed -Will switch IV hydrocortisone to PO hydrocortisone 5. Atrial fibrillation with RVR -Levophed and duonebs may have contributed to RVR -Did not respond to digoxin -Consulted Cardiology, Dr. Hernandez/Ela -On amiodarone -Resolved 6. Hypothyroidism -Continue on levothyroxine 7. DVT ppx -Lovenox 1mg/kg qD Disposition: Poor prognosis, patient aware. Planning for hospice when he knows family can be taken cared of. Possibly Friday VS, I&O, [facility] Vital Signs/I&O Vital Signs Date Time Temp Pulse Resp B/P (MAP) Pulse Ox O2 Delivery O2 Flow Rate FiO2 01/29/20 10:00 99 18 118/68 (85) 94 Nasal Cannula 4.0 01/29/20 04:00 98.3 01/25/20 12:00 100 I&O- Last 24 Hours up to 6 AM 01/29/20 06:00 Intake Total 620 ml Output Total 681 ml Balance -61 ml Laboratory Data 24H LABS Laboratory Tests 2 01/29/20 04:12: Immature Granulocyte % (Auto) 0.8, Neutrophils (%) (Auto) 94.2H, Lymphocytes (%) (Auto) 2.4L, Monocytes (%) (Auto) 2.5, Eosinophils (%) (Auto) 0.0, Basophils (%) (Auto) 0.1, Neutrophils # (Auto) 14.5H, Lymphocytes # (Auto) 0.4L, Monocytes # (Auto) 0.4, Eosinophils # (Auto) 0.0, Basophils # (Auto) 0.0, Nucleated Red Blood Cells % (auto) 0.0, Anion Gap 8, Glomerular Filtration Rate 31.8L, Calcium Level 8.0L, Phosphorus Level 3.5#, Total Bilirubin 0.3, Aspartate Amino Transf (AST/SGOT) 45H, Alanine Aminotransferase (ALT/SGPT) 19, Alkaline Phosphatase 102, Lactate Dehydrogenase 514H, Total Creatine Kinase 38L, Total Protein 5.0L, Albumin 1.5L, Albumin/Globulin Ratio 0.4, Triglycerides Level 177H, Cholesterol Level 130 CBC/BMP Laboratory Tests 01/29/20 04:12 Microbiology Microbiology 01/28/20 Blood Culture - Preliminary, Resulted No growth after 24 hours . All specim... 01/28/20 Blood Culture - Preliminary, Resulted No growth after 24 hours . All specim... 01/24/20 Respiratory Virus Panel (PCR) ([facility]) - Final, Complete ZAYNAB MEHTA DO Jan 29, 2020 13:40
[2020-01-29] MEDS: HYDROCORTISONE 10 MG TAB PO SCH ×2 (15:23→21:01)
[2020-01-29] MEDS: ENOXAPARIN 80MG/0.8ML SYRINGE (J1650 PER 10MG) SC SCH (20:17)
[2020-01-29] MEDS ORDERED: traZODone 50 MG TAB PO SCH (21:00)
[2020-01-29] MEDS ORDERED: RAMELTEON 8 MG TAB (ROZEREM) PO ONE (22:45)
[2020-01-30] VITALS: BP 90/54
[2020-01-30 00:20] VITALS: BP 122/66
[2020-01-30 04:00] VITALS: BP 125/60
[2020-01-30] MEDS ORDERED: SODIUM CHLORIDE 0.9% INJ 10 ML SYR IV PRN (05:15)
[2020-01-30] MEDS: HYDROCORTISONE 10 MG TAB PO SCH ×4 (05:37→21:00)
[2020-01-30] MEDS: LEVOTHYROXINE 50MCG TABLET (0.05MG) PO SCH (05:37)
[2020-01-30 05:57] LABS: BASO % 0.2 % (0.0-1.0); HEMATOCRIT 31.3 % (42.0-52.0); HEMOGLOBIN 9.9 g/dl (13.5-17.5); LYMPH # 0.5 10^3/uL (1.5-5.0); MEAN CORPUSCULAR HEMOGLOBIN 28.3 pg (27.0-33.0); MEAN CORPUSCULAR HGB CONC 31.6 g/dl (32.0-36.5); MEAN CORPUSCULAR VOLUME 89.4 fl (80.0-96.0); MONO # 0.6 10^3/uL (0.0-0.8); MONO % 4.7 % (0.0-5.0); NEUTROPHILS # 10.8 10^3/uL (1.5-8.5); NEUTROPHILS % 88.4 % (36.0-66.0); PLATELET COUNT, AUTOMATED 276 10^3/uL (150-450); WHITE BLOOD COUNT 12.2 10^3/uL (4.0-10.0)
[2020-01-30] MEDS ORDERED: SODIUM CHLORIDE 0.9% INJ 10 ML SYR IV SCH (06:00)
[2020-01-30 06:39] LABS: ALBUMIN 1.5 GM/DL (3.2-5.2); BILIRUBIN,TOTAL 0.2 MG/DL (0.2-1.0); CALCIUM LEVEL 7.6 MG/DL (8.8-10.2); CREATININE FOR GFR 3.18 MG/DL (0.70-1.30); PHOSPHORUS LEVEL 4.1 MG/DL (2.5-4.9); POTASSIUM SERUM 4.4 MEQ/L (3.5-5.1)
[2020-01-30 08:00] VITALS: BP 102/53
--- NOTE | 2020-01-30 08:05 | REP ---
INDICATION: pulm edema COMPARISON: 01/29/2020, 01/28/2020 TECHNIQUE: Portable AP view of the chest FINDINGS: Left mid to lower lobe opacities consistent with airspace disease and moderate pleural effusion along with right perihilar and right basilar opacity suggesting atelectasis and small effusion again noted and similar to prior examination. No new acute process. No pneumothorax. IMPRESSION: Bilateral airspace disease and pleural effusions (left greater than right) similar to prior examination. <Electronically signed by Yuan Gallegos > 01/30/20 0823
[2020-01-30] MEDS ORDERED: ONDANSETRON 4MG/2ML VIAL IV PRN (09:30)
[2020-01-30] MEDS ORDERED: SCOPOLAMINE 1MG TRANSDERMAL PATCH TOP PRN (09:30)
[2020-01-30] MEDS ORDERED: MORPHINE 2 MG/ML 1ML VIAL (J2270) IV PRN (09:30)
[2020-01-30] MEDS ORDERED: LORazepam 2 MG/ML VIAL IV PRN (09:30)
--- NOTE | 2020-01-30 09:44 | IPN ---
NEPHROLOGY PROGRESS NOTE DATE: 01/29/2020 SUBJECTIVE: The patient was seen and examined at the bedside today morning. Last 24 hour events were noted. His CVVHD was stopped yesterday. The patient remains oliguric. He remains weak and cachectic. He was visibly short of breath. The patient was talking to his category development analyst and family members when I saw him today morning and he is planning to make his living will and trying to arrange his finances and the patient is thinking about making himself comfort measures only and planning to go to Hospice. He does not want to do any more hemodialysis from now on. OBJECTIVE: VITAL SIGNS: Temperature is 97.8 degrees Fahrenheit, blood pressure 103/56, pulse is 92, respiratory rate of 16, saturating 94% on nasal cannula at 4 liters. INTAKE AND OUTPUT: Urine output recorded as 88 mL since overnight. Fluid removal with CVVDH yesterday was 596 mL. Weight on the bed scale is 80.2 kg. PHYSICAL EXAMINATION: GENERAL APPEARANCE: The patient is awake, alert, oriented x3, weak and cachectic, malnourished with shortness of breath. HEAD AND NECK: Extraocular muscles intact. Pupils are equally round and reactive to light. Mucous membranes are moist. Neck is supple. He has no jugular venous distention. CARDIOVASCULAR: S1, S2, regular rate. EXTREMITIES: 2+ edema of the bilateral lower extremities. RESPIRATORY: Decreased breath sounds at the bases, otherwise no active rales or rhonchi. He has a right subclavian triple lumen catheter. ABDOMEN: Distended, moderately tender to deep palpation all over. It is hard and has some guarding. GENITOURINARY: He has an indwelling Ceja catheter; very small amount of urine in the bag was noted. MUSCULOSKELETAL: 2+ edema of the bilateral lower extremities. EQUIPMENT HIRE MANAGER: No focal deficits. Power is 5/5 in all extremities. LAB REVIEW: CBC showed a WBC of 15.4, hemoglobin 10.4, platelets are 268. BMP showed sodium of 137, potassium 4.4, chloride 103, bicarbonate 26, BUN 14, creatinine is 2.1. Calcium is 8. AST 45, ALT 19, alkaline phosphatase is 102. LDH is 514. CURRENT INPATIENT MEDICATIONS: The patient's medications were all reviewed by myself. He is currently not requiring any pressors at this time. He continues to be on IV Cefotetan and oral Amiodarone. Hydrocortisone has been changed to 50 mg p.o. q. 8 hourly. No other significant change in the medications today as compared with yesterday. ASSESSMENT AND PLAN: 1. Acute oliguric renal failure - The patient remains oliguric. CVVHD was stopped yesterday. The patient plans to go to Hospice. He does not want to continue any more renal replacement therapy. Continue the medical management only. 2. Hypoxic respiratory failure the patient is still requiring nasal cannula at 4 liters and hypoxemic. No further fluid removal at this time. CVVHDF and dialysis have been stopped. 3. Atrial fibrillation - heart rate is controlled now. He continues to be on Amiodarone. 4. Metastatic cancer with peritoneal carcinomatosis - The patient overall has poor prognosis. He is not a candidate for chemotherapy and he is planning to go to Hospice after the weekend. 5. Disposition - The patient has a poor prognosis. He is going to Hospice. Nephrology Service is going to sign off at this moment. Please call Nephrology Service for any help in the management of this patient during this hospitalization.
[2020-01-30] MEDS ORDERED: ONDANSETRON 4 MG ORAL DISINTEGRATING TAB PO PRN (11:15)
--- NOTE | 2020-01-30 14:36 | IPNPDOC ---
Subjective Date Seen The patient was seen on 01/30/20. Subjective Chief Complaint/HPI Mr. Mireles is an 84 year old male with metastatic carcinoma of unknown primary source and chronic pulmonary embolism who was initially here for acute hypoxic respiratory failure and developed first shock, then atrial fibrillation with RVR. 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 He wanted to be comfortable. I contacted the [facility] staff sonographer to see if we could help him home. I also spoke with the patient's and PCP (Dr. Pena). Patient's would like him home, but does not feel comfortable without hospice help, especially with end of life care. I told her he may pass away at home and she was frightened. I spoke with Dr. Pena who also agreed that he should stay until Friday when we can contact hospice. When I returned to speak with the patient, he was sleeping. He just had medications to control pain and calm anxiety. Objective Physical Examination General Exam: Positive: Alert, Cooperative Eye Exam: Positive: PERRLA, Conjunctiva & lids normal, Other Eye Symptoms (beginning to have a sunken appearance); Negative: Sclera icteric ENT Exam: Positive: Atraumatic, Mucous membr. moist/pink, Pharynx Normal Neck Exam: Positive: Supple Chest Exam: Positive: Diminished Heart Exam: Positive: Rate Normal, Regular Rhythm Abdomen Exam: Positive: Other (Distended); Negative: Soft, Tenderness Extremity Exam: Positive: Normal pulses; Negative: Clubbing, Cyanosis, Edema Skin Exam: Positive: Nl turgor and temperature; Negative: Breakdown, Lesion Neuro Exam: Positive: Normal Speech, Cranial Nerves 3-12 NL Psych Exam: Positive: Anxiety, Oriented x 3 Assessment /Plan Assessment Mr. Mireles is an 84 year old male with metastatic carcinoma of unknown primary source and chronic pulmonary embolism who was initially here for acute hypoxic respiratory failure and developed first shock, then atrial fibrillation with RVR. Both the shock and afib with RVR resolved, but his kidney failure did not improve. Today, he decided to go [employer]CRETE [employer]ONE FINISHING SUPERVISOR. Plan to go home tomorrow with hospice Plan/VTE VTE Prophylaxis Ordered?: Yes Plan 1. Toxic metabolic encephalopathy 2. Acute hypoxic respiratory failure 3. Oliguric renal failure 4. Shock 5. Atrial fibrillation with RVR 6. Hypothyroidism Disposition: Poor prognosis, patient aware. Plan to go home tomorrow with hospice VS, I&O, 24H, Fishrafaele Vital Signs/I&O Vital Signs Date Time Temp Pulse Resp B/P (MAP) Pulse Ox O2 Delivery O2 Flow Rate FiO2 01/30/20 12:00 4.0 01/30/20 09:56 20 High Flow Cannula 01/30/20 08:00 99.5 81 102/53 (69) 96 01/25/20 12:00 100 I&O- Last 24 Hours up to 6 AM 01/30/20 06:00 Intake Total 590 ml Output Total 70 ml Balance 520 ml Laboratory Data 24H LABS Laboratory Tests 2 01/30/20 05:46: Immature Granulocyte % (Auto) 2.7, Neutrophils (%) (Auto) 88.4H, Lymphocytes (%) (Auto) 4.0L, Monocytes (%) (Auto) 4.7, Eosinophils (%) (Auto) 0.0, Basophils (%) (Auto) 0.2, Neutrophils # (Auto) 10.8H, Lymphocytes # (Auto) 0.5L, Monocytes # (Auto) 0.6, Eosinophils # (Auto) 0.0, Basophils # (Auto) 0.0, Nucleated Red Blood Cells % (auto) 0.0, Anion Gap 10, Glomerular Filtration Rate 20.0L, Calcium Level 7.6L, Phosphorus Level 4.1, Total Bilirubin 0.2, Aspartate Amino Transf (AST/SGOT) 42H, Alanine Aminotransferase (ALT/SGPT) 19, Alkaline Phosphatase 81, Lactate Dehydrogenase 492H, Total Creatine Kinase 33L, Total Protein 5.0L, Albumin 1.5L, Albumin/Globulin Ratio 0.4, Triglycerides Level 186H, Cholesterol Level 131 CBC/BMP Laboratory Tests 01/30/20 05:46 Microbiology Microbiology 01/28/20 Blood Culture - Preliminary, Resulted No Growth after 48 hours. All Specime... 01/28/20 Blood Culture - Preliminary, Resulted No Growth after 48 hours. All Specime... 01/24/20 Respiratory Virus Panel (PCR) ([facility]) - Final, Complete ZAYNAB MEHTA DO Jan 30, 2020 14:36
[2020-01-30] MEDS: LORazepam 1 MG TAB PO PRN ×3 (14:40→21:59)
[2020-01-30] MEDS: MORPHINE 10MG/0.5ML ORAL CONCENTRATE SOLUTION U/D SL PRN ×2 (14:41→16:53)
[2020-01-31] MEDS: LORazepam 1 MG TAB PO PRN ×3 (00:53→16:07)
[2020-01-31] MEDS: MORPHINE 10MG/0.5ML ORAL CONCENTRATE SOLUTION U/D SL PRN ×3 (01:50→06:29)
[2020-01-31] MEDS: HYDROCORTISONE 10 MG TAB PO SCH ×3 (08:15→20:02)
[2020-01-31] MEDS ORDERED: MORPHINE 10MG/0.5ML ORAL CONCENTRATE SOLUTION U/D SL ONE (08:15)
[2020-01-31] MEDS ORDERED: MORPHINE 10MG/0.5ML ORAL CONCENTRATE SOLUTION U/D SL PRN (08:45)
[2020-01-31] MEDS: MORPHINE SULF IN 0.9% NACL 100 MG in IV 1 EA IV SCH ×2 (12:41)
--- NOTE | 2020-01-31 20:46 | IPNPDOC ---
Subjective Date Seen The patient was seen on 01/31/20. Subjective Chief Complaint/HPI Mr. Mireles is an 84 year old male with metastatic carcinoma of unknown primary source and chronic pulmonary embolism who was initially here for acute hypoxic respiratory failure and developed first shock, then atrial fibrillation with RVR. 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 Overnight, he was in pain. This morning, he looked weak and had mottling. spoke with [facility], she said she would not be able to care for him at home. Since home was not an option, patient was started on a morphine drip to control the pain. and daughter was allow to visit. Objective Physical Examination General Exam: Positive: Cooperative Eye Exam: Negative: Sclera icteric ENT Exam: Negative: Mucous membr. moist/pink (dry) Neuro Exam: Positive: Normal Speech Psych Exam: Positive: Anxiety Assessment /Plan Assessment Mr. Mireles is an 84 year old male with metastatic carcinoma of unknown primary source and chronic pulmonary embolism who was initially here for acute hypoxic respiratory failure and developed first shock, then atrial fibrillation with RVR. Both the shock and afib with RVR resolved, but his kidney failure did not improve. 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 unable to care for him at home. and daughter visited him in the hospital today Plan/VTE VTE Prophylaxis Ordered?: Yes Plan 1. Toxic metabolic encephalopathy 2. Acute hypoxic respiratory failure 3. Oliguric renal failure requiring dialysis 4. Shock 5. Atrial fibrillation with RVR 6. Hypothyroidism Disposition: Poor prognosis, patient aware. 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 May pass in the next few days or sooner. Family was allowed to see him today VS, I&O, 24H, Fishbone Vital Signs/I&O Vital Signs Date Time Temp Pulse Resp B/P (MAP) Pulse Ox O2 Delivery O2 Flow Rate FiO2 01/31/20 09:00 2.0 01/30/20 09:56 20 High Flow Cannula 01/30/20 08:00 99.5 81 102/53 (69) 96 01/25/20 12:00 100 I&O- Last 24 Hours up to 6 AM 01/31/20 06:00 Intake Total 350 ml Output Total 0 ml Balance 350 ml Laboratory Data Microbiology Microbiology 01/28/20 Blood Culture - Preliminary, Resulted No Growth after 72 hours. All specime... 01/28/20 Blood Culture - Preliminary, Resulted No Growth after 72 hours. All specime... 01/24/20 Respiratory Virus Panel (PCR) ([facility]) - Final, Complete ZAYNAB MEHTA DO Jan 31, 2020 16:50
[2020-02-01] MEDS: HYDROCORTISONE 10 MG TAB PO SCH ×3 (09:00→21:00)
[2020-02-01] MEDS: MORPHINE SULF IN 0.9% NACL 100 MG in IV 1 EA IV SCH ×2 (10:43)
--- NOTE | 2020-02-01 12:34 | IPNPDOC ---
Text Note Date of Service The patient was seen on 02/01/20. NOTE Subjective: -No acute events overnight Objective: General: NAD, pale, sleeping, chronically ill appearing Eyes: EOMI, anicteric, no injection ENT: dry MM Cardiac: RRR, no mrg Abd: scaphoid, soft, hypoactive, NTND Psych: AOx3, sleeping, responds to voice, appropriate. 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 Plan: CONTROL OPERATOR without aggressive interventions for the followin. Toxic metabolic encephalopathy 2. Acute hypoxic respiratory failure (on 2L NC) 3. Oliguric renal failure requiring dialysis (off dialysis now) 4. Shock (resolved) 5. Atrial fibrillation with RVR (resolved) 6. Hypothyroidism Disposition: Poor prognosis, patient aware. CONTROL OPERATOR. May pass in the next few days or sooner. VS,Fishbone, I+O VS, Fishbone, I+O Vital Signs Date Time Temp Pulse Resp B/P (MAP) Pulse Ox O2 Delivery O2 Flow Rate FiO2 02/01/20 05:43 2.0 01/30/20 09:56 20 High Flow Cannula 01/30/20 08:00 99.5 81 102/53 (85) 96 I&O- Last 24 Hours up to 6 AM 02/01/20 06:00 Intake Total 0 ml Output Total 300 ml Balance -300 ml BASSEM PRO MD Feb 01, 2020 09:21
--- NOTE | 2020-02-03 09:45 | DS.PDOC ---
Discharge Summary General Date of Admission Jan 24, 2020 at 06:37 Date of Discharge 02/01/2020 Attending Physician: BASSEM PRO MD Discharge Summary PROCEDURES PERFORMED DURING STAY: None ADMITTING DIAGNOSES: 1. HARSHAD DISCHARGE DIAGNOSES: Anuric acute renal failure Metastatic cancer of unclear primary etiology Metabolic encephalopathy Acute hypoxic respiratory failure Shock Ne onset atrial fibrillation with RVR Hypothyroidism COMPLICATIONS/CHIEF COMPLAINT: Acute Renal Failure,Auditory Hallucinations. HISTORY OF PRESENT ILLNESS: 84 year old M with metastatic carcinoma of unknown primary source and chronic pulmonary embolism who presented with SOB and was found to have acute hypoxic respiratory failure and HARSHAD and admitted to medicine. HOSPITAL COURSE: While inpatient he developed first shock, then atrial fibrillation with RVR and Harshad worsened and became anuric. Both the shock and afib with RVR eventually resolved with medical management but his kidney failure did not improve. On 01/30/2020, he decided to become comfort measures only and on 01/31 he . DISCHARGE MEDICATIONS: Please see below. ALLERGIES: Please see below. PHYSICAL EXAMINATION ON DISCHARGE: VITAL SIGNS: Please see below. I WAS NOT PRESENT AT TIME OF DISCHARGE HE OVERNIGHT. LABORATORY DATA: Please see below. IMAGING: Reviewed. Refer to chart. PROGNOSIS: ACTIVITY: DIET: DISCHARGE PLAN: DISPOSITION: 20 . DISCHARGE INSTRUCTIONS: ITEMS TO FOLLOWUP ON ON OUTPATIENT: DISCHARGE CONDITION: TIME SPENT ON DISCHARGE: 30 minutes. Vital Signs/I&Os Vital Signs Date Time Temp Pulse Resp B/P (MAP) Pulse Ox O2 Delivery O2 Flow Rate FiO2 02/01/20 09:00 2.0 01/30/20 09:56 20 High Flow Cannula 01/30/20 08:00 99.5 81 102/53 (69) 96 Microbiology Microbiology 01/28/20 Blood Culture - Final, Complete NO GROWTH AFTER 5 DAYS 01/28/20 Blood Culture - Final, Complete NO GROWTH AFTER 5 DAYS 01/24/20 Respiratory Virus Panel (PCR) ([facility]) - Final, Complete Discharge Medications Scheduled Apixaban (Eliquis) 5 Mg Tablet, 5 MG PO BID, (Reported) Ascorbic Acid (Ascorbic Acid) 500 Mg Tablet, 1,000 MG PO DAILY, (Reported) Furosemide (Furosemide) 40 Mg Tablet, 40 MG PO DAILY, (Reported) Multivitamins (Thera M Plus Tablet) 1 Each Tablet, 1 TAB PO DAILY, (Reported) Omeprazole (Omeprazole) 40 Mg Capsule.dr, 40 MG PO BID, (Reported) Polyethylene Glycol 3350 (Polyethylene Glycol 3350) 510 Gm Powder, 17 GRAM PO DAILY, (Reported) Scheduled PRN Ondansetron HCl (Ondansetron HCl) 4 Mg Tablet, 4 MG PO BID PRN for NAUSEA OR VOMITING, (Reported) Oxycodone HCl (Oxycodone HCl) 5 Mg Tablet, 5 MG PO QID PRN for PAIN, (Reported) Allergies Coded Allergies: No Known Allergies (Unverified , 12/23/19) BASSEM PRO MD Feb 03, 2020 09:45
== END 2020-02-01 21:22 | disposition expired | DRG 682 ==
LOC: M ED 00:42 → M ED INP 06:37 → ENRESERV 11:03 → M MS5PR 12:15 → M PCU 18:15 → M MS5PR 01-30 13:12
PROVIDERS: ADMIT Family Medicine; ATTEND Internal Medicine
PROC: 0W9B3ZX Drainage of Left Pleural Cavity, Percutaneous Approach, Diagnostic (ICD-10-PCS; 2020-01-24)
PROC: 06HM33Z Insertion of Infusion Device into Right Femoral Vein, Percutaneous Approach (ICD-10-PCS; principal; 2020-01-25)
PROC: 5A1D90Z Performance of Urinary Filtration, Continuous, Greater than 18 hours Per Day (ICD-10-PCS; 2020-01-25)
DX: N17.9 Acute kidney failure, unspecified (principal); J81.0 Acute pulmonary edema; J96.01 Acute respiratory failure with hypoxia; G93.41 Metabolic encephalopathy; I27.82 Chronic pulmonary embolism; R44.0 Auditory hallucinations; J90 Pleural effusion, not elsewhere classified; E46 Unspecified protein-calorie malnutrition; C78.6 Secondary malignant neoplasm of retroperitoneum and peritoneum; R18.0 Malignant ascites; J91.0 Malignant pleural effusion; R57.9 Shock, unspecified; I13.0 Hypertensive heart and chronic kidney disease with heart failure and stage 1 through stage 4 chronic kidney disease, or unspecified chronic kidney disease; C80.0 Disseminated malignant neoplasm, unspecified; K56.7 Ileus, unspecified; Z51.5 Encounter for palliative care; Z66 Do not resuscitate; E87.5 Hyperkalemia; E03.9 Hypothyroidism, unspecified; I50.9 Heart failure, unspecified; I48.91 Unspecified atrial fibrillation; Z79.01 Long term (current) use of anticoagulants; Z79.899 Other long term (current) drug therapy; Z98.41 Cataract extraction status, right eye; Z98.42 Cataract extraction status, left eye; Z96.641 Presence of right artificial hip joint; K22.2 Esophageal obstruction; K26.9 Duodenal ulcer, unspecified as acute or chronic, without hemorrhage or perforation; N18.30 Chronic kidney disease, stage 3 unspecified; Z20.828 Contact with and (suspected) exposure to other viral communicable diseases; T40.2X5A Adverse effect of other opioids, initial encounter; T39.315A Adverse effect of propionic acid derivatives, initial encounter